=== PATIENT | female | born 1940 | race Caucasian/White ===

== ENCOUNTER 2016-12-21 15:57 | Observation (INO) | payer MEDICARE, BC ==
--- OUTSIDE RECORDS SUMMARY | 2016-12-21 16:02 | XMS REPORT | Continuity of Care Document ---
:1940 Author Organization [facility] ([facility]) [place] [address] Phone [phone] Care Team Providers Name Role Phone Roby Christianson Primary Care Provider [phone] Source Comments This disclosure is being made pursuant to the Care Everywhere program, applicable federal and state laws, and may not contain all informaitonavailable regarding this patient.[facility] ([facility]) Active Allergies and Adverse Reactions Allergen Noted Date Severity Reactions Comments Cephalosporins Urticaria (Hives) Latex, Natural Rubber Urticaria (Hives) Other Agent 11/09/2009 Urticaria (Hives) Metals Penicillins Urticaria (Hives) Sulfadoxine Urticaria (Hives) Current Medications Prescription Sig. Disp. Refills Start Date End Date Status albuterol-ipratropium use 3 mL by Active (DUONEB) 2.5-0.5 mg/3 inhalation 4 times mL inhalation solution daily. amLODIPine (NORVASC) 10 take 10 mg by mouth Active mg tablet daily. Benzocaine-Menthol 6-10 by Mucous Membrane Active mg Lozg route. BLOOD-GLUCOSE METER Active LANCETS & BLOOD GLUCOSE Active STRIPS clobetasol (TEMOVATE) apply topically 2 Active 0.05 % cream times daily. clotrimazole-betamethas apply 1 application Active one (LOTRISONE) 1-0.05% topically 2 times cream daily. diltiazem (CARDIZEM CD) take 180 mg by mouth Active 180 mg ER capsule daily. Lidocaine HCl 5 % Soln by Mucous Membrane Active route. lisinopril (PRINIVIL) take by mouth daily. Active 10 mg tablet MAG HYDROX/AL take by mouth. Active HYDROX/SIMETH (MAALOX PLUS EXTRA STRENGTH PO) OXYBENZONE/PDO/PET by Apply externally Active HY-PHL (VASELINE LIP route. THERAPY EX) metFORMIN (GLUCOPHAGE) take 500 mg by mouth Active 500 mg tablet 2 times daily with meals. mometasone (NASONEX) 50 use 2 Sprays into Active mcg/Actuation nasal each nostril daily. spray oxyCODONE-acetaminophen take 1 Tab by mouth Active (PERCOCET) 5-325 mg per every 4 hours as tablet needed. pantoprazole (PROTONIX) take 40 mg by mouth Active 40 mg EC tablet daily. cycloSPORINE take 100 mg by mouth Active (SANDIMMUNE) 100 mg cap every 12 hours. polyethylene glycol take 17 g by mouth Active 3350 (MIRALAX) 17 gram daily. packet potassium chloride take 20 mEq by mouth Active (KLOR-CON 10) 10 mEq XR 2 times daily. tablet sennosides (SENOKOT) take 1 Tab by mouth Active 8.6 mg tablet daily. sodium chloride (OCEAN use 1 [place] into each Active NASAL) 0.65 % nasal nostril as needed. spray theophylline (FAVIO-DUR) take 200 mg by mouth Active 200 mg XR tablet 2 times daily. venlafaxine (EFFEXOR) take 75 mg by mouth 4 Active 75 mg tablet times daily. Active Problems Problem Noted Date Shortness of breath 12/06/2007 Acute esophagitis 12/06/2007 Immunizations Name Dates Previously Given Next Due Influenza, unspecified 06/10/2007 Social History Tobacco Use Types Packs/Day Years Used Date Never Assessed Last Filed Vital Signs Vital Sign Reading Time Taken Blood Pressure 118/65 11/09/2009 9:28 AM CDT Pulse 101 11/09/2009 9:28 AM CDT Temperature 36.5 C (97.7 F) 11/09/2009 9:28 AM CDT Respiratory Rate 16 12/06/2007 10:15 AM CDT Height 1.67 m (5' 5.75") 11/09/2009 9:28 AM CDT Weight 89.313 kg (196 lb 14.4 oz) 11/09/2009 9:28 AM CDT Body Mass Index 32.02 11/09/2009 9:28 AM CDT Oxygen Saturation - - Plan of Care Health Maintenance Due Date Last Done Comments Hepatitis B Vaccine (1 of 3 - Primary Series) 1940 Tdap Vaccine 1949 Lipid Disorder Screening 1956 Td Vaccine 1956 Mammogram 1978 Colonoscopy 10/30/1988 Zoster Vaccine 1998 Osteoporosis Screening (DXA Bone Density) 11/01/2003 Pneumococcal Vaccine (1 of 2 - PCV13) 11/01/2003 Influenza Vaccine: Seasonal (Season Ended) 2017 06/10/2007 Results from Last 3 Months Not on file
[2016-12-21] MEDS ORDERED: ENOXAPARIN SODIUM 40 MG/0.4 ML SYRG SC SCH (17:15)
[2016-12-21] MEDS: CLINDAMYCIN HCL 150 MG CAPSULE PO SCH ×2 (18:07→22:53)
[2016-12-21 20:40] LABS: Anion Gap 8.1 mmol/L (6.8-13.8); BUN/Creatinine Ratio 16.3 (9.0-21.6); Calcium * 9.2 mg/dL (7.9-10.9); Carbon Dioxide 33.6 mmol/L (24-32.6); Estimated Creat Clear 50.5; Potassium 4.7 mmol/L (3.4-4.6)
[2016-12-21] MEDS ORDERED: ALBUTEROL SULFATE/IPRATROPIUM 3 ML NEBU IH PRN (22:50)
[2016-12-21] MEDS ORDERED: NITROGLYCERIN 0.4 MG/TAB BTL SL PRN (22:50)
[2016-12-21] MEDS ORDERED: ACETAMINOPHEN 325 MG TABLET PO PRN (22:50)
[2016-12-21] MEDS ORDERED: HALOPERIDOL 5 MG TABLET PO PRN (22:50)
[2016-12-21] MEDS ORDERED: HYDROPHILIC OINTMENT 454 APPL JAR TP PRN (22:50)
[2016-12-21] MEDS ORDERED: BISACODYL 5 MG TABLET.DR PO PRN (22:50)
[2016-12-21] MEDS ORDERED: amLODIPine BESYLATE 10 MG TABLET PO ONE (23:26)
[2016-12-21] MEDS ORDERED: amLODIPine BESYLATE 5 MG TABLET ONE (23:36)
--- NOTE | 2016-12-21 23:42 | HP ---
Chief Complaint - Chief Complaint Date of Service: 12/21/16 Time of Service: 20:00 Chief Complaint: Pressure ulcer History of Present Illness: 76 years old female adm to the hospital from the clinic with reports of infected pressure ulcers to the buttocks and weight loss. Per PCP pt lives at home and is been cared for by daughter, who reported that she isn't able to care for pt like she needs too. Family considering placement for pt upon this adm.Pt is unable to provide information due to medical condition, information obtained from previous records. In out-pt clinic wound culture and blood culture were already obtained. she was initiated on clindamycin 150mg PO Q6hrs. PMH significant for aspirated pneumonia, COPD, diabetes, anemia,dementia,GERD, UTI, hypertension and hyperlipidemia. - Patient's Past Medical History Patient History - Medical: Anemia, Alzheimer's Disease, Anxiety, Diabetes Type 2 , Dementia, Depression, GERD, UTI'S, Other Patient History - Cardiac/Respiratory: Bronchitis, COPD, Hypertension, Hyperlipidemia, Sleep Apnea, Other - chronic cough, right eye herpes Patient History - Cancer: No Hx of Cancer Patient History - Surgical Procedures: Back Surgery, Cholecystectomy, Colonoscopy, EGD, Hysterectomy Patient History - Other: None - Family History Mother Family History - Medical: Family History - Cardiac/Respiratory: CVA/Stroke, Hypertension Father Family History - Medical: , History Unknown, Bipolar Family History - Cardiac/Respiratory: No pertinent hx - Social History Living Situations: home Abuse History: No History of abuse Psych History: Psychiatric Hx, Hx of Anxiety, Hx of Depression Smoking Status: Former smoker Have you smoked in the past 12 months: No Alcohol Use: none Drug Use: none - Immunizations Immunizations Up to Date: No Hx Pneumococcal Vaccination: No History of Influenza Vaccine: No Review Of Systems (GEN) - Review of Systems Generalized/Overall Review: Present: No Symptoms Reported EENTM: Present: No Symptoms Reported Respiratory: Present: Cough Cardiac: Present: No Symptoms Reported Abdominal: Present: No Symptoms Reported Genitourinary: Present: No Symptoms Reported Musculoskeletal: Present: No Symptoms Reported Neurological: Present: No Symptoms Reported Skin: Present: Other - pressure ulcer Immunizations: IMMUNIZATION HX Immunizations Up to Date No History of Influenza Vaccine No Hx Pneumococcal Vaccination No Allergies/Adverse Reactions: Allergies Allergy/AdvReac Type Severity Reaction Status Date / Time Penicillins Allergy Severe Anaphylaxis Verified 08/11/16 16:04 latex Allergy Itching Verified 08/11/16 16:04 Sulfa (Sulfonamide Allergy Itching Verified 08/11/16 16:04 Antibiotics) adhesive AdvReac Verified 08/11/16 16:04 Home Medications: HOME MEDICATIONS Bisacodyl [Dulcolax] 5 mg PO DAILY PRN 08/30/14 [Last Taken 08/11/15 08:00] Calcium Carbonate [Tums] 500 mg PO TID 08/30/14 [Last Taken 08/12/15 17:00] Cholecalciferol (Vitamin D3) [Vitamin D3] 2,000 unit PO DAILY 08/30/14 [Last Taken 08/12/15 08:00] Propylene Glycol [Systane Balance] 1 drop EACHEYE QID PRN 08/30/14 [Last Taken Unknown] Tolterodine Tartrate [Detrol LA] 2 mg PO DAILY 08/30/14 [Last Taken 08/12/15 08: 00] ALPRAZolam [Xanax] 0.5 mg PO BID 08/13/15 [Last Taken 08/12/15 20:00] Hydrophilic Ointment [Aquaphilic Ointment] 1 appl TP DAILY PRN 08/13/15 [Last Taken Unknown] Acetaminophen [Tylenol] 650 mg PO Q6H PRN 07/05/16 [Last Taken Unknown] Arformoterol Tartrate [Brovana] 15 mcg IH BID 07/05/16 [Last Taken Unknown] Clobetasol Propionate [Temovate 0.05% Cream] 1 appl TP BID 07/05/16 [Last Taken Unknown] Cyanocobalamin [Vitamin B-12] 1,000 mcg PO DAILY 07/05/16 [Last Taken Unknown] Donepezil HCl [Aricept] 10 mg PO HS 07/05/16 [Last Taken Unknown] Haloperidol [Haldol] 5 mg PO TID PRN 07/05/16 [Last Taken Unknown] Memantine HCl [Namenda] 10 mg PO DAILY 07/05/16 [Last Taken Unknown] Nitroglycerin [Nitrostat] 0.4 mg SL Q5MIN PRN 07/05/16 [Last Taken Unknown] Polyethylene Glycol 3350 [Miralax] 17 gm PO DAILY 07/05/16 [Last Taken Unknown] Polyvinyl Alcohol [Artificial Tears] 1 drop OP HS 07/05/16 [Last Taken Unknown] QUEtiapine FUMARATE [Seroquel] 50 mg PO DAILY 07/05/16 [Last Taken Unknown] QUEtiapine FUMARATE [Seroquel] 100 mg PO HS 07/05/16 [Last Taken Unknown] Vit C/Vit E AC/Lut/Copper/Zinc [Preservision Lutein Softgel] 1 each PO DAILY 05/12 [Last Taken Unknown] Fluticasone/Salmeterol [Advair 250-50 Diskus] 1 puff IH BID 07/07/16 [Last Taken Unknown] Omeprazole [Prilosec] 40 mg PO DAILY 08/11/16 [Last Taken Unknown] Simvastatin [Zocor] 20 mg PO HS 08/11/16 [Last Taken Unknown] Theophylline Anhydrous [Theophylline] 300 mg PO BID 08/11/16 [Last Taken Unknown ] Multivitamin W/Iron, Minerals 1 tab PO DAILY 08/12/16 [Last Taken Unknown] Albuterol Sulfate/Ipratropium [Duoneb 2.5-0.5MG/3ML Soln] 3 ml IH Q4H PRN [Last Taken Unknown] Calcium Carbonate/Vitamin D3 [Oysco 500-Vit D3 200 Tablet] 1 each PO TID [Last Taken Unknown] Diphenhydramine HCl/Zinc Acet [Anti-Itch 2%-0.1% Cream] 1 gm TP Q4H PRN [Last Taken Unknown] predniSONE [Prednisone] 2.5 mg PO DAILY 12/21/16 [Last Taken Unknown] Exam - Exam Vital Signs: Vital Signs - Last Taken Temp 37.2 C 12/21/16 23:23 Pulse 81 12/21/16 23:23 Resp 24 H 12/21/16 23:23 BP 187/67 12/21/16 23:23 Pulse Ox 90 12/21/16 23:23 Constitutional: Present: Cooperative, No distress, Middle aged ENT Exam: Present: moist mucous membranes Eye Exam: bilateral eye: PERRL Neck: Present: non-tender Back Exam: Present: normal inspection, no CVA tenderness Breasts: Present: Exam deferred Respiratory: Present: chest non-tender, normal breath sounds, no respiratory distress, respiratory distress Cardiovascular/Chest: Present: normal peripheral pulses, regular rate, rhythm, no chest tenderness, no edema Peripheral Pulses: dorsalis-pedis (R): 3+, dorsalis-pedis (L): 3+ Abdomen: Present: Normal bowel sounds, soft, nontender, nondistended, no rebound tenderness /Rectal: Present: Exam deferred Extremity: Present: normal range of motion Skin Exam: Present: normal color, warm/dry, no cyanosis Lymphatic: Present: no adenopathy Neurologic: Present: disoriented x 3 Appearance: Present: appropriate appearance Eye contact: Present: cooperative Thoughts: Present: no apparent hallucination Diagnostic Studies: Abnormal Lab Results 12/21/16 Range/Units 20:24 Sodium 143 H (132-142) mmol/L Plasma Sodium 143 H (130-142) mmol/L Potassium 4.7 H D (3.4-4.6) mmol/L Carbon Dioxide 33.6 H (24-32.6) mmol/L Laboratory Results Sodium 143 mmol/L (132-142) H 12/21/16 20:24 Plasma Sodium 143 mmol/L (130-142) H 12/21/16 20:24 Potassium 4.7 mmol/L (3.4-4.6) H D 12/21/16 20:24 Chloride 106 mmol/L (97-106) 12/21/16 20:24 Carbon Dioxide 33.6 mmol/L (24-32.6) H 12/21/16 20:24 Anion Gap 8.1 mmol/L (6.8-13.8) 12/21/16 20:24 BUN 14 mg/dL (3-23) 12/21/16 20:24 Creatinine 0.86 mg/dL (0.4-1.4) 12/21/16 20:24 Est GFR (Non-Af Amer) 68 mL/min (60-130) D 12/21/16 20:24 BUN/Creatinine Ratio 16.3 (9.0-21.6) 12/21/16 20:24 Random Glucose 107 mg/dL (70-110) 12/21/16 20:24 Calcium 9.2 mg/dL (7.9-10.9) 12/21/16 20:24 Assessment/Plan - Narrative Narrative: Infected Pressure ulcer Turn Q2hrs Meplex dressing to affected area Keep area clean and dry Blood culture and wound culture was obtained at clinic Continue with oral antbx Diabetes Consistent carb diet Accu-check AC+HS and low dose sliding scale Resume home dose of medication COPD Continue with neb treatment both schedule and PRN Supplemented oxygen and wean soon as prudent Resume home dose of medications Dementia continue with supportive care Frequent re-orientation Hypertension on adm BP 187/67 Norvasc 10mg x1 given Continue to monitor vital signs Pt isn't on any home medications continue with Norvasc 5mg daily. Generalized weakness- likely due to deconditioning PT/OT evaluation and treatment Code status: Full VTE ppx Ambulate Anticipate discharge [facility] family requesting placement 0-2 days and follow up with PCP Time 40 minutes and previous records reviewed. - Assessment/Plan (1) COPD (chronic obstructive pulmonary disease) Problem: Chronic (2) Dementia Problem: Chronic Qualifiers: (3) Diabetes mellitus type 2 in nonobese Problem: Chronic (4) Pressure ulcer Problem: Acute Qualifiers: Pressure ulcer location: buttock
[2016-12-21] MEDS: FLUTICASONE/SALMETEROL 14 PUFF DISK.W.DEV IH SCH (23:43)
[2016-12-21] MEDS ORDERED: POLYVINYL ALCOHOL 150 DROP BTL EACHEYE PRN (23:49)
[2016-12-21] MEDS: THEOPHYLLINE ANHYDROUS 300 MG TAB.SR.12H PO SCH (23:52)
[2016-12-21] MEDS ORDERED: diphenhydrAMINE HCL/ZINC ACET 28.3 APPL TUBE TP PRN (23:55)
[2016-12-22] MEDS ORDERED: DONEPEZIL HCL 10 MG TABLET PO SCH
[2016-12-22] MEDS ORDERED: POLYVINYL ALCOHOL 150 DROP BTL OP SCH
[2016-12-22] MEDS ORDERED: CLOBETASOL PROPIONATE APPL TP SCH
[2016-12-22] MEDS ORDERED: QUEtiapine FUMARATE 100 MG TABLET PO SCH
[2016-12-22] MEDS ORDERED: SIMVASTATIN 20 MG TABLET PO SCH
[2016-12-22] MEDS: CLINDAMYCIN HCL 150 MG CAPSULE PO SCH ×2 (05:02→11:47)
[2016-12-22] MEDS ORDERED: PANTOPRAZOLE SODIUM 40 MG TABLET.EC PO SCH (07:00)
[2016-12-22] MEDS: NYSTATIN 30 ML, diphenhydrAMINE HCL 75 MG, LIDOCAINE HCL 30 ML, MAG HYDROX/ALUMINUM HYD... PO SCH ×8 (08:00→11:47)
[2016-12-22] MEDS: FLUTICASONE/SALMETEROL 14 PUFF DISK.W.DEV IH SCH (08:00)
[2016-12-22] MEDS ORDERED: CHOLECALCIFEROL 1,000 UNIT CAPSULE PO SCH (09:00)
[2016-12-22] MEDS ORDERED: CYANOCOBALAMIN 1,000 MCG TABLET PO SCH (09:00)
[2016-12-22] MEDS ORDERED: MULTIVITAMINS 1 TAB TAB.CHEW PO SCH (09:00)
[2016-12-22] MEDS ORDERED: BETA-CAROTENE(A) W-C , E/MIN 1 TAB TABLET PO SCH (09:00)
[2016-12-22] MEDS ORDERED: MEMANTINE HCL 10 MG TABLET PO SCH (09:00)
[2016-12-22] MEDS ORDERED: predniSONE 5 MG TABLET PO SCH (09:00)
[2016-12-22] MEDS ORDERED: FORMOTEROL FUMARATE 20 MCG/2 ML VIAL IH SCH (09:00)
[2016-12-22] MEDS ORDERED: TOLTERODINE TARTRATE 2 MG CAPSULE PO SCH (09:00)
[2016-12-22] MEDS ORDERED: POLYETHYLENE GLYCOL 3350 119 GM BTL PO SCH (09:00)
[2016-12-22] MEDS ORDERED: CLOBETASOL PROPIONATE/EMOLL 60 APPL TUBE TP SCH (09:00)
[2016-12-22] MEDS ORDERED: predniSONE 2.5 MG TABLET PO SCH (09:00)
[2016-12-22] MEDS: CALCIUM CARBONATE/VITAMIN D3 1 TAB TABLET PO SCH ×2 (09:45→13:56)
[2016-12-22] MEDS: CALCIUM CARBONATE 500 MG TAB.CHEW PO SCH ×2 (09:46→13:57)
[2016-12-22] MEDS: THEOPHYLLINE ANHYDROUS 300 MG TAB.SR.12H PO SCH (09:46)
[2016-12-22 11:08] VITALS: BP 147/67
--- NOTE | 2016-12-22 11:45 | DS ---
(1) Pressure ulcer Problem: Acute Qualifiers: Pressure ulcer location: buttock Pressure ulcer stage: unspecified pressure ulcer stage Laterality: right Qualified Code(s): L89.319 - Pressure ulcer of right buttock, unspecified stage Description of Stay: Patient admitted overnight for an infected pressure ulcer and to make arrangements for [facility]. Patient will be discharged home with her daughter with [facility] in place. Patient will be seen in the wound care clinic next week. Continue clindamycin for 7 days. Will await final wound culture and sensitivity results and adjust antibiotic if necessary. Procedures Performed: none Discharge Disposition: Home with [facility] Disposition: Home self-care Condition: Fair Discharge Activity: Activity as tolerated Discharge Diet: Resume usual diet [facility] Therapy: Physicial Therapy Referrals: Jocelin Shaffer DO [Primary Care Provider] - Problem Oriented Discharge Instructions to Patient/Family: Confusion, Wound Infection, [id number] Additional Patient Instructions (free text): [facility] at discharge. Please call report and fax orders and fax face to face. Wound Center appointment at [facility] December 29 at 9am. Follow-up with Dr. Shaffer within 2 weeks on December at 10:45 AM. Mepilex border to right buttock ulcer. Change dressing every three days. Wash with soap and water,pat dry when changing dressing. Prescriptions (Any new or edited meds): RX: Clindamycin HCl [Cleocin] 150 mg PO Q6H #28 capsule Complete Home Medications List: Complete Home Medication List: RX: Bisacodyl [Dulcolax] 5 mg PO DAILY PRN 08/30/14 RX: Calcium Carbonate [Tums] 500 mg PO TID 08/30/14 RX: Cholecalciferol (Vitamin D3) [Vitamin D3] 2,000 unit PO DAILY 08/30/14 RX: Propylene Glycol [Systane Balance] 1 drop EACHEYE QID PRN 08/30/14 RX: Tolterodine Tartrate [Detrol LA] 2 mg PO DAILY 08/30/14 RX: ALPRAZolam [Xanax] 0.5 mg PO BID 08/13/15 RX: Hydrophilic Ointment [Aquaphilic Ointment] 1 appl TP DAILY PRN 08/13/15 RX: Acetaminophen [Tylenol] 650 mg PO Q6H PRN 07/05/16 RX: Arformoterol Tartrate [Brovana] 15 mcg IH BID 07/05/16 RX: Clobetasol Propionate [Temovate 0.05% Cream] 1 appl TP BID 07/05/16 RX: Cyanocobalamin [Vitamin B-12] 1,000 mcg PO DAILY 07/05/16 RX: Donepezil HCl [Aricept] 10 mg PO HS 07/05/16 RX: Haloperidol [Haldol] 5 mg PO TID PRN 07/05/16 RX: Memantine HCl [Namenda] 10 mg PO DAILY 07/05/16 RX: Nitroglycerin [Nitrostat] 0.4 mg SL Q5MIN PRN 07/05/16 RX: Polyethylene Glycol 3350 [Miralax] 17 gm PO DAILY 07/05/16 RX: Polyvinyl Alcohol [Artificial Tears] 1 drop OP HS 07/05/16 RX: QUEtiapine FUMARATE [Seroquel] 50 mg PO DAILY 07/05/16 RX: QUEtiapine FUMARATE [Seroquel] 100 mg PO HS 07/05/16 RX: Vit C/Vit E AC/Lut/Copper/Zinc [Preservision Lutein Softgel] 1 each PO DAILY 07/05/16 RX: Fluticasone/Salmeterol [Advair 250-50 Diskus] 1 puff IH BID 07/07/16 RX: Omeprazole [Prilosec] 40 mg PO DAILY 08/11/16 RX: Simvastatin [Zocor] 20 mg PO HS 08/11/16 RX: Theophylline Anhydrous [Theophylline] 300 mg PO BID 08/11/16 Multivitamin W/Iron, Minerals 1 tab PO DAILY 08/12/16 RX: Albuterol Sulfate/Ipratropium [Duoneb 2.5-0.5MG/3ML Soln] 3 ml IH Q4H PRN RX: Calcium Carbonate/Vitamin D3 [Oysco 500-Vit D3 200 Tablet] 1 each PO TID RX: Diphenhydramine HCl/Zinc Acet [Anti-Itch 2%-0.1% Cream] 1 gm TP Q4H PRN RX: predniSONE [Prednisone] 2.5 mg PO DAILY 12/21/16 RX: Clindamycin HCl [Cleocin] 150 mg PO Q6H #28 capsule 12/22/16
[2016-12-22] MEDS ORDERED: QUEtiapine FUMARATE 25 MG TABLET PO SCH (12:00)
== END 2016-12-22 17:50 | disposition home health service (06) ==
LOC: MS 15:57
PROVIDERS: ADMIT Internal Medicine; ATTEND Internal Medicine
DX: L89.319 Pressure ulcer of right buttock, unspecified stage (principal); L03.317 Cellulitis of buttock; E11.622 Type 2 diabetes mellitus with other skin ulcer; G30.9 Alzheimer's disease, unspecified; F02.80 Dementia in other diseases classified elsewhere, unspecified severity, without behavioral disturbance, psychotic disturbance, mood disturbance, and anxiety; D64.9 Anemia, unspecified; K21.9 Gastro-esophageal reflux disease without esophagitis; I10 Essential (primary) hypertension; J44.9 Chronic obstructive pulmonary disease, unspecified; Z87.891 Personal history of nicotine dependence; R63.4 Abnormal weight loss; M62.81 Muscle weakness (generalized)
CPT/HCPCS: 36415; 80048; 87040; 87081; 92610; 96372; 97161; 97165; G0378; G0379; G8978; G8979; G8980; G8987; G8988; G8989; G8996; G8997; G8998

== ENCOUNTER 2017-01-01 11:23 | Emergency (ER) | payer MEDICARE, BC ==
[2017-01-01] MEDS ORDERED: NORMAL SALINE 1,000 ML IV SCH (12:00)
[2017-01-01] MEDS ORDERED: LEVOFLOXACIN/D5W 750 MG/150 ML BAG IV SCH (12:00)
--- OUTSIDE RECORDS SUMMARY | 2017-01-01 12:00 | XMS REPORT | Continuity of Care Document ---
:1940 Author Organization [facility] ([facility]) Address [place] [address] Phone [phone] Care Team Providers Name Role Phone Roby Christianson Primary Care Provider [phone] Source Comments This disclosure is being made pursuant to the Care Everywhere program, applicable federal and state laws, and may not contain all informaitonavailable regarding this patient.[facility] ([facility]) Active Allergies and Adverse Reactions Allergen [...] tablet daily. sodium chloride (OCEAN use 1 [place] into each Active NASAL) 0.65 % nasal [...]
[2017-01-01 12:22] LABS: Hemoglobin 9.4 gm/dL (12.5-16.0); Mean Cell Volume 89.4 fl (78-100); Mean Corpuscular Hemoglobin 25.5 pg (27-31); Mean Corpuscular Hgb Conc 28.5 g/dl (32-36); Mean Platelet Volume 10.2 fl (6.0-9.5); Neutrophil % 64.5 % (42-75.0); Platelet Count 323 K/mm3 (150-450); Red Blood Count 3.69 M/mm3 (4.2-5.4); Red Cell Distribution Width 16.6 % (11.5-14.0); White Blood Count 7.8 K/mm3 (4.0-10.5)
[2017-01-01 12:50] LABS: Albumin * 3.2 gm/dl (3.4-5.0); Anion Gap 8.5 mmol/L (6.8-13.8); BUN/Creatinine Ratio 22.5 (9.0-21.6); Bilirubin, Total 0.1 mg/dL (0.0-1.1); Ca. Corrected For Albumin 9.7 mg/dL (8.4-10.2); Calcium * 9.4 mg/dL (7.9-10.9); Carbon Dioxide 34.6 mmol/L (24-32.6); Potassium 4.1 mmol/L (3.4-4.6); Total Protein 7.6 gm/dL (6.2-8.2)
[2017-01-01 13:13] LABS: Urine Bilirubin Negative (NEGATIVE); Urine Blood Negative /ul (NEGATIVE); Urine Ketone Negative (NEGATIVE); Urine Nitrite Negative (NEGATIVE); Urine Protein Negative (NEGATIVE); Urine Specific Gravity >=1.030 SP.GR. (1.005-1.010); Urine Urobilinogen Normal (NORMAL); Urine pH 6.5 pH (5.0-7.0)
[2017-01-01 13:25] LABS: Urine Appearance Slightly Cloudy; Urine Bacteria 1+; Urine Color Yellow; Urine WBC 0-5 /hpf (0-5)
--- NOTE | 2017-01-01 13:38 | ERNOTE ---
Date of Service: 01/01/17 Time Seen by Provider: 01/01/17 11:48 Stated Complaint: PNEUMONIA Presenting Symptoms:: cough, fever Source: family Exam Limitations: no limitations Immunizations: IMMUNIZATION HX Immunizations Up to Date No History of Influenza Vaccine No Hx Pneumococcal Vaccination No Allergies/Adverse Reactions: Allergies Penicillins Allergy (Severe, Verified 01/01/17 11:50) Anaphylaxis latex Allergy (Verified 01/01/17 11:50) Itching Sulfa (Sulfonamide Antibiotics) Allergy (Verified 01/01/17 11:50) Itching adhesive Adverse Reaction (Verified 01/01/17 11:50) Home Medications: HOME MEDICATIONS Bisacodyl [Dulcolax] 5 mg PO DAILY PRN 08/30/14 [Last Taken 08/11/15 08:00] Calcium Carbonate [Tums] 500 mg PO TID 08/30/14 [Last Taken 08/12/15 17:00] Cholecalciferol (Vitamin D3) [Vitamin D3] 1,000 unit PO DAILY 08/30/14 [Last Taken 08/12/15 08:00] Propylene Glycol [Systane Balance] 1 drop EACHEYE QID PRN 08/30/14 [Last Taken Unknown] Tolterodine Tartrate [Detrol LA] 2 mg PO DAILY 08/30/14 [Last Taken 08/12/15 08: 00] ALPRAZolam [Xanax] 0.5 mg PO BID 08/13/15 [Last Taken 08/12/15 20:00] Hydrophilic Ointment [Aquaphilic Ointment] 1 appl TP DAILY PRN 08/13/15 [Last Taken Unknown] Acetaminophen [Tylenol] 650 mg PO Q6H PRN 07/05/16 [Last Taken Unknown] Arformoterol Tartrate [Brovana] 15 mcg IH BID 07/05/16 [Last Taken Unknown] Clobetasol Propionate [Temovate 0.05% Cream] 1 appl TP BID 07/05/16 [Last Taken Unknown] Cyanocobalamin [Vitamin B-12] 1,000 mcg PO DAILY 07/05/16 [Last Taken Unknown] Donepezil HCl [Aricept] 10 mg PO HS 07/05/16 [Last Taken Unknown] Haloperidol [Haldol] 5 mg PO TID PRN 07/05/16 [Last Taken Unknown] Memantine HCl [Namenda] 10 mg PO DAILY 07/05/16 [Last Taken Unknown] Nitroglycerin [Nitrostat] 0.4 mg SL Q5MIN PRN 07/05/16 [Last Taken Unknown] Polyethylene Glycol 3350 [Miralax] 17 gm PO DAILY 07/05/16 [Last Taken Unknown] Polyvinyl Alcohol [Artificial Tears] 1 drop OP HS 07/05/16 [Last Taken Unknown] QUEtiapine FUMARATE [Seroquel] 50 mg PO DAILY 07/05/16 [Last Taken Unknown] QUEtiapine FUMARATE [Seroquel] 100 mg PO HS 07/05/16 [Last Taken Unknown] Vit C/Vit E AC/Lut/Copper/Zinc [Preservision Lutein Softgel] 1 each PO DAILY 05/12 [Last Taken Unknown] Fluticasone/Salmeterol [Advair 250-50 Diskus] 1 puff IH BID 07/07/16 [Last Taken Unknown] Omeprazole [Prilosec] 40 mg PO DAILY 08/11/16 [Last Taken Unknown] Simvastatin [Zocor] 20 mg PO HS 08/11/16 [Last Taken Unknown] Theophylline Anhydrous [Theophylline] 300 mg PO BID 08/11/16 [Last Taken Unknown ] Multivitamin W/Iron, Minerals 1 tab PO DAILY 08/12/16 [Last Taken Unknown] Albuterol Sulfate/Ipratropium [Duoneb 2.5-0.5MG/3ML Soln] 3 ml IH Q4H PRN [Last Taken Unknown] Calcium Carbonate/Vitamin D3 [[place] 500-Vit D3 200 Tablet] 1 each PO TID [Last Taken Unknown] Diphenhydramine HCl/Zinc Acet [Anti-Itch 2%-0.1% Cream] 1 gm TP Q4H PRN [Last Taken Unknown] predniSONE [Prednisone] 2.5 mg PO DAILY 12/21/16 [Last Taken Unknown] Clindamycin HCl [Cleocin] 150 mg PO Q6H #28 capsule 12/22/16 [Last Taken Unknown ] Albuterol Sulfate/Ipratropium [Duoneb 2.5-0.5MG/3ML Soln] 3 ml IH Q4H PRN [Last Taken Unknown] Levofloxacin [Levaquin] 750 mg PO DAILY #10 tab 01/01/17 [Last Taken Unknown] - History of Present Ilness Narrative: 76 year old female brought to ER from Clinic. Patient is SOB, and has a very congested cough. Due to patient's dementia, verbal exam was limited. Daughter states that she has has cold sx for about 2 weeks. Date (Duration): 01/01/17 Timing: constant Severity: moderate Frequency/Possible Cause: Reports: frequent episodes Modifying Factors - Improves: Reports: nothing Modifying Factors - Worsens: Reports: activity, lying down Associated Symptoms: Reports: cough, shortness of breath, nasal congestion, headache, fever/chills. Denies: chest pain/soreness, nasal drainage, sore throat Prior Treatment: Reports: recently hospitalized - with in the last 30 days per daughter Review of Systems - Review of Systems Constitutional: Present: See HPI EYE: Present: no symptoms reported ENT: Present: See HPI Respiratory: Present: See HPI Cardiology: Present: no symptoms reported Gastrointestinal/Abdominal: Present: no symptoms reported Genitourinary: Present: no symptoms reported Musculoskeletal: Present: no symptoms reported Skin: Present: no symptoms reported Neurological: Present: See HPI, headache Endocrine: Present: no symptoms reported Hematologic/Lymphatic: Present: no symptoms reported Psych: Present: no symptoms reported All Other Systems: All systems neg except as marked - Patient's Past Medical History Patient History - Medical: Anemia, Alzheimer's Disease, Diabetes Type 2, Dementia, GERD, UTI'S, Other Patient History - Cardiac/Respiratory: COPD Patient History - Cancer: No Hx of Cancer Patient History - Surgical Procedures: Back Surgery, Cholecystectomy, Colonoscopy, EGD, Hysterectomy Patient History - Other: None - Family History Mother Family History - Medical: Family History - Cardiac/Respiratory: CVA/Stroke, Hypertension Father Family History - Medical: , History Unknown, Bipolar Family History - Cardiac/Respiratory: No pertinent hx - Social History Living Situations: home Abuse History: No History of abuse Psych History: Psychiatric Hx Alcohol Use: none Drug Use: none - Immunizations Immunizations Up to Date: No Hx Pneumococcal Vaccination: No History of Influenza Vaccine: No Physical Exam - Physical Exam General Appearance: Present: wd/wn, alert, moderate distress Eye Exam: Normal inspection: bilateral Ears, Nose, Throat: Present: normal except -, nasal congestion, pharyngeal erythema Neck: Present: normal inspection Respiratory: Present: respiratory distress, accessory muscle use, decreased breath sounds, rales, rhonchi Cardiovascular/Chest: Present: normal peripheral pulses, irregularly irregular Peripheral Pulses: N=norm/S=strong/W=weak/B=bound/A=absent: Radial (R): Normal, Radial (L): Normal, Dorsalis-pedis (R): Normal, Dorsalis-pedis (L): Normal Gastrointestinal/Abdominal: Present: normal bowel sounds, nontender, soft Back Exam: Present: decreased range of motion Extremity Exam: Present: decreased range of motion Neurological Exam: Present: alert, normal mood/affect, other - forgetful, plesant confused at time Skin Exam: Present: normal color, warm/dry Lymphatic Exam: Present: no adenopathy ED Progress - Results and Orders Patient's Lab Results:: I have reviewed the patient's lab results. - Vital Signs Patient's Vital Signs:: I have reviewed the patient's vital signs. Vital Signs: Vital Signs 01/01/17 11:36 Temperature 36.1 C L Pulse Rate 98 Respiratory 12 Rate Blood Pressure 163/70 O2 Sat by Pulse 96 Oximetry - EKG EKG: atrial fibrillation EKG read: Reviewed by me EKG Comments: interp by ER attending - X-Ray X-Ray #1 X-Ray: chest Interpretation: Reviewed by me X-ray Comments: HISTORY: Shortness of breath. TECHNIQUE: Single portable AP view of the chest was obtained at 1325 hours. COMPARISONS: 08/11/2016 FINDINGS: Chest Single View *: Patient is rotated to the patient's right. Hypoinflated lungs. There is a questionable infiltrate versus atelectasis at the right lung base. Pulmonary vasculature is normal. No pneumothorax or pleural fluid collections apparent. Mild cardiomegaly, stable. Vascular calcifications projecting over the aorta, stable. Trachea is in normal position given patient positioning. Mildly displaced rib fractures are identified at the lateral aspects of the right fifth, sixth, and seventh ribs. There is associated mild adjacent pleural thickening. IMPRESSION: 1. Right basilar atelectasis versus pulmonary infiltrate. Correlate clinically. Consider follow-up to document resolution. 2. Right-sided rib fractures (lateral 5-7) are suggested. Associated localized pleural thickening. Electronically signed by Pil Christianson, M.D.. - Progress/Reassessment Chief Complaint: Upper Respiratory Symptoms Plan - Plan Plan: This provider spoke with the admitting Hospitalist Mary Kate Westbrook about admitting this patient. She stated she spoke with Dr. Shaffer and the felt that admission was not needed and to send patient home with antibiotics. Mary Kate stated that Dr. Mora nurse will call the daughter and speak with her regarding a follow up office visit. Mary Kate Westbrook is aware of CXR findings. Departure - Departure Clinical Impression: SOB (shortness of breath) Pneumonia Qualifiers: Pneumonia type: due to unspecified organism Laterality: unspecified laterality Lung location: unspecified part of lung Qualified Code(s): J18.9 - Pneumonia, unspecified organism Disposition: Home Follow Up Needed Condition: Stable Instructions: Chronic Obstructive Pulmonary Disease, [id number], Aspiration Pneumonia Additional Instructions: Continue any previous home medications. Start her oral antibiotics tomorrow. She was given the first dose in the emergency room today. Return to the emergency room if you develop fever or shortness of breath or any new signs and symptoms. Please follow-up with your primary care in the next 2 days regarding her diagnoses. Referrals: Jocelin Shaffer DO [Primary Care Provider] - Prescriptions: Levofloxacin [Levaquin] 750 mg PO DAILY #10 tab
[2017-01-01 14:20] VITALS: BP 170/74
== END 2017-01-01 14:38 | disposition home or self-care (01) ==
LOC: ER 11:23
DX: R06.02 Shortness of breath (principal); J18.9 Pneumonia, unspecified organism; D64.9 Anemia, unspecified; E11.9 Type 2 diabetes mellitus without complications; K21.9 Gastro-esophageal reflux disease without esophagitis; J44.9 Chronic obstructive pulmonary disease, unspecified

== ENCOUNTER 2017-01-08 15:30 | Inpatient (IN) | payer MEDICARE, BC ==
--- OUTSIDE RECORDS SUMMARY | 2017-01-08 16:07 | XMS REPORT | Continuity of Care Document ---
:1940 Author Organization [facility] ([facility]) Address [place] [address] Phone [phone] Care Team Providers Name Role Phone Roby Christianson Primary Care Provider [phone] Source Comments This disclosure is being made pursuant to the Care Everywhere program, applicable federal and state laws, and may not contain all informaitonavailable regarding this patient.[facility] ([facility]) Active Allergies and Adverse Reactions Allergen [...] tablet daily. sodium chloride (OCEAN use 1 [place] into each Active NASAL) 0.65 % nasal [...]
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
[2017-01-08] MEDS ORDERED: ALBUTEROL SULFATE/IPRATROPIUM 3 ML NEBU IH ONE ×2 (16:28→17:22)
[2017-01-08 16:30] LABS: Hematocrit 28.1 % (37.0-47.0); Mean Cell Volume 88.9 fl (78-100); Mean Corpuscular Hgb Conc 28.1 g/dl (32-36); Mean Platelet Volume 10.6 fl (6.0-9.5); Neutrophil # 5.6 K/mm3 (1.3-6.0); Platelet Count 247 K/mm3 (150-450); Red Blood Count 3.16 M/mm3 (4.2-5.4); Red Cell Distribution Width 15.8 % (11.5-14.0); White Blood Count 8.1 K/mm3 (4.0-10.5)
[2017-01-08 16:33] LABS: Hemoglobin 7.9 gm/dL (12.5-16.0)
[2017-01-08 16:48] LABS: Prothrombin Time (Patient) 10.6 Seconds (9.4-11.4)
[2017-01-08 16:51] LABS: Albumin * 2.8 gm/dl (3.4-5.0); Anion Gap 6.4 mmol/L (6.8-13.8); BUN/Creatinine Ratio 18.4 (9.0-21.6); Bilirubin, Total 0.2 mg/dL (0.0-1.1); Ca. Corrected For Albumin 9.5 mg/dL (8.4-10.2); Calcium * 8.9 mg/dL (7.9-10.9); Carbon Dioxide 37.5 mmol/L (24-32.6); Potassium 3.9 mmol/L (3.4-4.6); TSH * 2.731 uIU/mL (0.358-3.74); Total Protein 6.8 gm/dL (6.2-8.2)
[2017-01-08 16:53] LABS: INR 1.02 INR (0.90-1.10)
[2017-01-08 17:54] LABS: Urine Bilirubin Negative (NEGATIVE); Urine Blood Negative /ul (NEGATIVE); Urine Ketone Negative (NEGATIVE); Urine Nitrite Negative (NEGATIVE); Urine Protein Negative (NEGATIVE); Urine Specific Gravity >=1.030 SP.GR. (1.005-1.010); Urine Urobilinogen Normal (NORMAL)
[2017-01-08 18:03] LABS: Urine Appearance Clear; Urine Bacteria None Seen; Urine Color Yellow; Urine RBC TRACE /hpf (0-5); Urine WBC None Seen /hpf (0-5)
--- OUTSIDE RECORDS SUMMARY | 2017-01-08 19:15 | XMS REPORT | Continuity of Care Document ---
:1940 Author Organization [facility] ([facility]) Address [place] [address] Phone [phone] Care Team Providers Name Role Phone Roby Christianson Primary Care Provider [phone] Source Comments This disclosure is being made pursuant to the Care Everywhere program, applicable federal and state laws, and may not contain all informaitonavailable regarding this patient.[facility] ([facility]) Active Allergies and Adverse Reactions Allergen Noted [...] tablet daily. sodium chloride (OCEAN use 1 [place] into each Active NASAL) 0.65 % nasal [...]
[2017-01-08] MEDS ORDERED: HYDROPHILIC OINTMENT 454 APPL JAR TP PRN (20:22)
[2017-01-08] MEDS ORDERED: ALBUTEROL SULFATE/IPRATROPIUM 3 ML NEBU IH PRN (20:22)
[2017-01-08] MEDS ORDERED: BISACODYL 5 MG TABLET.DR PO PRN (20:22)
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
[2017-01-08] MEDS ORDERED: BISACODYL 10 MG SUPP.RECT RC ONE ×2 (20:30→21:35)
[2017-01-08] MEDS ORDERED: diphenhydrAMINE HCL/ZINC ACET 28.3 APPL TUBE TP PRN (20:53)
[2017-01-08] MEDS ORDERED: CLOBETASOL PROPIONATE APPL TP SCH (21:00)
[2017-01-08] MEDS ORDERED: HALOPERIDOL 5 MG TABLET PO PRN (21:01)
[2017-01-08] MEDS: DONEPEZIL HCL 10 MG TABLET PO SCH (21:38)
[2017-01-08] MEDS: ALPRAZolam 0.5 MG TABLET PO SCH (21:38)
[2017-01-08] MEDS: QUEtiapine FUMARATE 100 MG TABLET PO SCH (21:38)
[2017-01-08] MEDS: SIMVASTATIN 20 MG TABLET PO SCH (21:38)
[2017-01-08] MEDS: THEOPHYLLINE ANHYDROUS 300 MG TAB.SR.12H PO SCH (21:38)
[2017-01-08] MEDS: MAGNESIUM CITRATE 300 ML BTL PO SCH (21:38)
[2017-01-08] MEDS: POLYVINYL ALCOHOL 150 DROP BTL OP SCH (21:39)
[2017-01-08] MEDS: FLUTICASONE/SALMETEROL 14 PUFF DISK.W.DEV IH SCH (21:39)
[2017-01-08] MEDS: DEXTROSE 5%-0.5 NORMAL SALINE 1,000 ML IV PRN (21:47)
[2017-01-08] MEDS ORDERED: POLYVINYL ALCOHOL 150 DROP BTL EACHEYE PRN (22:13)
[2017-01-08] MEDS ORDERED: LEVOFLOXACIN 250 MG TABLET ONE (22:14)
[2017-01-08] MEDS: LEVOFLOXACIN 750 MG TABLET PO SCH (22:15)
[2017-01-08] MEDS: FORMOTEROL FUMARATE 20 MCG/2 ML VIAL IH SCH (22:17)
[2017-01-09] MEDS: ACETAMINOPHEN 325 MG TABLET PO PRN ×2 (04:12→16:29)
[2017-01-09] MEDS: FORMOTEROL FUMARATE 20 MCG/2 ML VIAL IH SCH ×2 (06:03→18:25)
[2017-01-09 06:06] LABS: Hematocrit 28.6 % (37.0-47.0); Hemoglobin 8.3 gm/dL (12.5-16.0); Mean Cell Volume 87.7 fl (78-100); Mean Corpuscular Hemoglobin 25.5 pg (27-31); Mean Platelet Volume 10.6 fl (6.0-9.5); Neutrophil # 7.6 K/mm3 (1.3-6.0); Neutrophil % 67.9 % (42-75.0); Platelet Count 267 K/mm3 (150-450); Red Blood Count 3.26 M/mm3 (4.2-5.4); Red Cell Distribution Width 15.7 % (11.5-14.0); White Blood Count 11.2 K/mm3 (4.0-10.5)
[2017-01-09] MEDS: PANTOPRAZOLE SODIUM 40 MG TABLET.EC PO SCH (06:37)
[2017-01-09 06:46] LABS: Iron 20 mcg/dL (35-120); Transferrin Sat. (% Sat.) 10 % (15-55)
[2017-01-09] MEDS ORDERED: ATROPINE SULFATE 150 DROP BTL SL PRN (07:14)
[2017-01-09 07:42] LABS: Albumin * 2.9 gm/dl (3.4-5.0); Anion Gap 3.3 mmol/L (6.8-13.8); Bilirubin, Total 0.3 mg/dL (0.0-1.1); Ca. Corrected For Albumin 9.4 mg/dL (8.4-10.2); Calcium * 8.8 mg/dL (7.9-10.9); Carbon Dioxide 37.6 mmol/L (24-32.6); Potassium 3.9 mmol/L (3.4-4.6); T4 Free * 1.05 ng/dL (0.76-1.46); TSH * 2.05 uIU/mL (0.358-3.74); Total Protein 6.8 gm/dL (6.2-8.2)
[2017-01-09] MEDS: MULTIVIT WITH IRON-MINERALS 1 TAB TABLET PO SCH (08:53)
[2017-01-09] MEDS: MAGNESIUM CITRATE 300 ML BTL PO SCH (08:53)
[2017-01-09] MEDS: TOLTERODINE TARTRATE 2 MG CAPSULE PO SCH (08:53)
[2017-01-09] MEDS: FLUTICASONE/SALMETEROL 14 PUFF DISK.W.DEV IH SCH ×2 (08:53→22:27)
[2017-01-09] MEDS: BETA-CAROTENE(A) W-C , E/MIN 1 TAB TABLET PO SCH (08:54)
[2017-01-09] MEDS: MEMANTINE HCL 10 MG TABLET PO SCH (08:54)
[2017-01-09] MEDS: predniSONE 2.5 MG TABLET PO SCH (08:54)
[2017-01-09] MEDS: QUEtiapine FUMARATE 25 MG TABLET PO SCH (08:54)
[2017-01-09] MEDS: POLYETHYLENE GLYCOL 3350 119 GM BTL PO SCH (08:54)
[2017-01-09] MEDS: BISACODYL 5 MG TABLET.DR PO SCH (08:54)
[2017-01-09] MEDS: FERROUS SULFATE 325 MG TABLET PO SCH ×2 (08:54→16:30)
[2017-01-09] MEDS: CALCIUM CARBONATE 500 MG TAB.CHEW PO SCH ×3 (08:55→16:30)
[2017-01-09] MEDS: THEOPHYLLINE ANHYDROUS 300 MG TAB.SR.12H PO SCH ×2 (08:55→22:28)
[2017-01-09] MEDS: CHOLECALCIFEROL 1,000 UNIT CAPSULE PO SCH (08:55)
[2017-01-09] MEDS: CYANOCOBALAMIN 1,000 MCG TABLET PO SCH (08:55)
[2017-01-09] MEDS: CLOBETASOL PROPIONATE 15 APPL TUBE TP SCH ×2 (08:56→22:28)
[2017-01-09] MEDS ORDERED: predniSONE 5 MG TABLET PO SCH (09:00)
[2017-01-09] MEDS: ALPRAZolam 0.5 MG TABLET PO SCH ×2 (09:03→22:28)
[2017-01-09] MEDS ORDERED: POLYVINYL ALCOHOL 150 DROP BTL EACHEYE PRN (10:23)
[2017-01-09] MEDS: DEXTROSE 5%-0.5 NORMAL SALINE 1,000 ML IV PRN (14:10)
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
[2017-01-09] MEDS: POLYVINYL ALCOHOL 150 DROP BTL OP SCH (22:27)
[2017-01-09] MEDS: SIMVASTATIN 20 MG TABLET PO SCH (22:28)
[2017-01-09] MEDS: DONEPEZIL HCL 10 MG TABLET PO SCH (22:29)
[2017-01-09] MEDS: QUEtiapine FUMARATE 100 MG TABLET PO SCH (22:29)
[2017-01-09] MEDS: LEVOFLOXACIN 750 MG TABLET PO SCH (22:29)
[2017-01-10] MEDS: DEXTROSE 5%-0.5 NORMAL SALINE 1,000 ML IV PRN (03:09)
[2017-01-10] MEDS: ACETAMINOPHEN 325 MG TABLET PO PRN (04:51)
[2017-01-10] MEDS: FORMOTEROL FUMARATE 20 MCG/2 ML VIAL IH SCH ×2 (06:06→19:32)
[2017-01-10] MEDS: PANTOPRAZOLE SODIUM 40 MG TABLET.EC PO SCH (07:03)
[2017-01-10] MEDS: FLUTICASONE/SALMETEROL 14 PUFF DISK.W.DEV IH SCH ×2 (08:39→20:19)
[2017-01-10] MEDS: CYANOCOBALAMIN 1,000 MCG TABLET PO SCH (08:40)
[2017-01-10] MEDS: CHOLECALCIFEROL 1,000 UNIT CAPSULE PO SCH (08:40)
[2017-01-10] MEDS: MULTIVIT WITH IRON-MINERALS 1 TAB TABLET PO SCH (08:40)
[2017-01-10] MEDS: THEOPHYLLINE ANHYDROUS 300 MG TAB.SR.12H PO SCH ×2 (08:40→20:19)
[2017-01-10] MEDS: CALCIUM CARBONATE 500 MG TAB.CHEW PO SCH ×3 (08:40→16:52)
[2017-01-10] MEDS: ALPRAZolam 0.5 MG TABLET PO SCH ×2 (08:42→20:19)
[2017-01-10] MEDS: BISACODYL 5 MG TABLET.DR PO SCH (08:44)
[2017-01-10] MEDS: FERROUS SULFATE 325 MG TABLET PO SCH ×2 (08:44→16:52)
[2017-01-10] MEDS: TOLTERODINE TARTRATE 2 MG CAPSULE PO SCH (08:44)
[2017-01-10] MEDS: MEMANTINE HCL 10 MG TABLET PO SCH (08:44)
[2017-01-10] MEDS: POLYETHYLENE GLYCOL 3350 119 GM BTL PO SCH (08:44)
[2017-01-10] MEDS: predniSONE 2.5 MG TABLET PO SCH (08:45)
[2017-01-10] MEDS: BETA-CAROTENE(A) W-C , E/MIN 1 TAB TABLET PO SCH (08:45)
[2017-01-10] MEDS: QUEtiapine FUMARATE 25 MG TABLET PO SCH (08:45)
[2017-01-10] MEDS: CLOBETASOL PROPIONATE 15 APPL TUBE TP SCH ×2 (08:45→20:20)
[2017-01-10] MEDS ORDERED: diphenhydrAMINE HCL/ZINC ACET 28.3 APPL TUBE TP PRN (11:47)
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
[2017-01-10] MEDS: NYSTATIN 30 ML, diphenhydrAMINE HCL 75 MG, LIDOCAINE HCL 30 ML, MAG HYDROX/ALUMINUM HYD... PO PRN ×4 (13:27)
[2017-01-10] MEDS: POLYVINYL ALCOHOL 150 DROP BTL OP SCH (20:20)
[2017-01-10] MEDS: SIMVASTATIN 20 MG TABLET PO SCH (20:20)
[2017-01-10] MEDS: QUEtiapine FUMARATE 100 MG TABLET PO SCH (20:20)
[2017-01-10] MEDS: DONEPEZIL HCL 10 MG TABLET PO SCH (20:20)
[2017-01-10] MEDS ORDERED: NON-FORMULARY 1 DOSE DOSE (Arformoterol Tartrate [Brovana] 15 MCG) IH SCH (21:00)
[2017-01-11] MEDS: ACETAMINOPHEN 325 MG TABLET PO PRN ×2 (03:55→14:35)
[2017-01-11] MEDS: FORMOTEROL FUMARATE 20 MCG/2 ML VIAL IH SCH ×2 (06:06→18:07)
[2017-01-11 06:35] LABS: Hematocrit 26.8 % (37.0-47.0); Mean Cell Volume 86.5 fl (78-100); Mean Corpuscular Hemoglobin 25.5 pg (27-31); Mean Corpuscular Hgb Conc 29.5 g/dl (32-36); Mean Platelet Volume 10.9 fl (6.0-9.5); Platelet Count 274 K/mm3 (150-450); Red Cell Distribution Width 16.1 % (11.5-14.0); White Blood Count 8.7 K/mm3 (4.0-10.5)
[2017-01-11 06:39] LABS: Hemoglobin 7.9 gm/dL (12.5-16.0)
[2017-01-11 06:42] LABS: Anion Gap 7.2 mmol/L (6.8-13.8); BUN/Creatinine Ratio 12.6 (9.0-21.6); Calcium * 8.7 mg/dL (7.9-10.9); Carbon Dioxide 35.3 mmol/L (24-32.6); Estimated Creat Clear 42.1; Potassium 3.5 mmol/L (3.4-4.6)
[2017-01-11] MEDS: PANTOPRAZOLE SODIUM 40 MG TABLET.EC PO SCH (06:43)
[2017-01-11] MEDS: CALCIUM CARBONATE 500 MG TAB.CHEW PO SCH ×3 (09:13→17:43)
[2017-01-11] MEDS: CYANOCOBALAMIN 1,000 MCG TABLET PO SCH (09:13)
[2017-01-11] MEDS: predniSONE 2.5 MG TABLET PO SCH (09:13)
[2017-01-11] MEDS: FERROUS SULFATE 325 MG TABLET PO SCH ×2 (09:13→17:43)
[2017-01-11] MEDS: MEMANTINE HCL 10 MG TABLET PO SCH (09:13)
[2017-01-11] MEDS: CHOLECALCIFEROL 1,000 UNIT CAPSULE PO SCH (09:13)
[2017-01-11] MEDS: FLUTICASONE/SALMETEROL 14 PUFF DISK.W.DEV IH SCH ×2 (09:13→20:05)
[2017-01-11] MEDS: TOLTERODINE TARTRATE 2 MG CAPSULE PO SCH (09:13)
[2017-01-11] MEDS: CLOBETASOL PROPIONATE 15 APPL TUBE TP SCH ×2 (09:14→20:05)
[2017-01-11] MEDS: THEOPHYLLINE ANHYDROUS 300 MG TAB.SR.12H PO SCH ×2 (09:14→20:05)
[2017-01-11] MEDS: QUEtiapine FUMARATE 25 MG TABLET PO SCH (09:14)
[2017-01-11] MEDS: BISACODYL 5 MG TABLET.DR PO SCH (09:14)
[2017-01-11] MEDS: BETA-CAROTENE(A) W-C , E/MIN 1 TAB TABLET PO SCH (09:14)
[2017-01-11] MEDS: MULTIVIT WITH IRON-MINERALS 1 TAB TABLET PO SCH (09:14)
[2017-01-11] MEDS: NYSTATIN 30 ML, diphenhydrAMINE HCL 75 MG, LIDOCAINE HCL 30 ML, MAG HYDROX/ALUMINUM HYD... PO PRN ×4 (09:21)
[2017-01-11] MEDS: POLYETHYLENE GLYCOL 3350 119 GM BTL PO SCH (09:29)
[2017-01-11] MEDS: ALPRAZolam 0.5 MG TABLET PO SCH ×2 (09:30→20:05)
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
[2017-01-11] MEDS: SIMVASTATIN 20 MG TABLET PO SCH (20:05)
[2017-01-11] MEDS: QUEtiapine FUMARATE 100 MG TABLET PO SCH (20:05)
[2017-01-11] MEDS: DONEPEZIL HCL 10 MG TABLET PO SCH (20:05)
[2017-01-11] MEDS: POLYVINYL ALCOHOL 150 DROP BTL OP SCH (20:06)
[2017-01-12] MEDS: ACETAMINOPHEN 325 MG TABLET PO PRN (04:21)
[2017-01-12] MEDS: PANTOPRAZOLE SODIUM 40 MG TABLET.EC PO SCH (06:31)
[2017-01-12] MEDS: FORMOTEROL FUMARATE 20 MCG/2 ML VIAL IH SCH (06:57)
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
[2017-01-12] MEDS: FLUTICASONE/SALMETEROL 14 PUFF DISK.W.DEV IH SCH (09:28)
[2017-01-12] MEDS: BETA-CAROTENE(A) W-C , E/MIN 1 TAB TABLET PO SCH (09:29)
[2017-01-12] MEDS: MULTIVIT WITH IRON-MINERALS 1 TAB TABLET PO SCH (09:29)
[2017-01-12] MEDS: BISACODYL 5 MG TABLET.DR PO SCH (09:29)
[2017-01-12] MEDS: CHOLECALCIFEROL 1,000 UNIT CAPSULE PO SCH (09:29)
[2017-01-12] MEDS: TOLTERODINE TARTRATE 2 MG CAPSULE PO SCH (09:29)
[2017-01-12] MEDS: MEMANTINE HCL 10 MG TABLET PO SCH (09:29)
[2017-01-12] MEDS: THEOPHYLLINE ANHYDROUS 300 MG TAB.SR.12H PO SCH (09:29)
[2017-01-12] MEDS: CYANOCOBALAMIN 1,000 MCG TABLET PO SCH (09:29)
[2017-01-12] MEDS: predniSONE 2.5 MG TABLET PO SCH (09:29)
[2017-01-12] MEDS: QUEtiapine FUMARATE 25 MG TABLET PO SCH (09:29)
[2017-01-12] MEDS: CALCIUM CARBONATE 500 MG TAB.CHEW PO SCH (09:30)
[2017-01-12] MEDS: FERROUS SULFATE 325 MG TABLET PO SCH (09:30)
[2017-01-12] MEDS: CLOBETASOL PROPIONATE 15 APPL TUBE TP SCH (09:31)
[2017-01-12] MEDS: POLYETHYLENE GLYCOL 3350 119 GM BTL PO SCH (09:34)
[2017-01-12] MEDS: ALPRAZolam 0.5 MG TABLET PO SCH (09:39)
[2017-01-12 10:41] VITALS: BP 152/64
== END 2017-01-12 13:30 | DRG 206 ==
LOC: ER 15:30 → MS 19:09 → OBSVTOIN 01-09 09:28
PROVIDERS: ADMIT Allergy & Immunology; ATTEND Internal Medicine
DX: S22.31XA Fracture of one rib, right side, initial encounter for closed fracture (principal); T76.11XA Adult physical abuse, suspected, initial encounter; S05.11XA Contusion of eyeball and orbital tissues, right eye, initial encounter; S00.03XA Contusion of scalp, initial encounter; W19.XXXA Unspecified fall, initial encounter; Z91.81 History of falling; Y92.009 Unspecified place in unspecified non-institutional (private) residence as the place of occurrence of the external cause; K59.00 Constipation, unspecified; L89.312 Pressure ulcer of right buttock, stage 2; D64.9 Anemia, unspecified; E78.5 Hyperlipidemia, unspecified; J43.9 Emphysema, unspecified; G30.9 Alzheimer's disease, unspecified; F02.80 Dementia in other diseases classified elsewhere, unspecified severity, without behavioral disturbance, psychotic disturbance, mood disturbance, and anxiety; Z87.891 Personal history of nicotine dependence
CPT/HCPCS: 36415; 70450; 70486; 71020; 72125; 72170; 73552; 80048; 80053; 81001; 82272; 82607; 82728; 83540; 83550; 83605; 84439; 84443; 84466; 85025; 85027; 85610; 87081; 94640; 97110; 97116; 97162; 99284; G0378

== ENCOUNTER 2017-02-11 20:32 | Emergency (ER) | payer MEDICARE, BC ==
[2017-02-11] MEDS ORDERED: ACETAMINOPHEN 325 MG TABLET ONE (20:57)
[2017-02-11] MEDS ORDERED: ACETAMINOPHEN 325 MG TABLET PO ONE (21:00)
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
[2017-02-11 23:04] VITALS: BP 132/74
== END 2017-02-11 23:03 ==
LOC: ER 20:32
PROC: 0HQ1XZZ Repair Face Skin, External Approach (ICD-10-PCS; principal; 2017-02-11)
DX: S01.112A Laceration without foreign body of left eyelid and periocular area, initial encounter (principal); F03.90 Unspecified dementia, unspecified severity, without behavioral disturbance, psychotic disturbance, mood disturbance, and anxiety; W07.XXXA Fall from chair, initial encounter; Z91.81 History of falling; Y93.9 Activity, unspecified; Y92.129 Unspecified place in nursing home as the place of occurrence of the external cause; D64.9 Anemia, unspecified; K21.9 Gastro-esophageal reflux disease without esophagitis; J44.9 Chronic obstructive pulmonary disease, unspecified; E78.5 Hyperlipidemia, unspecified; Z87.440 Personal history of urinary (tract) infections

== ENCOUNTER 2017-04-26 06:06 | Inpatient (IN) | payer MEDICARE, BC ==
[2017-04-26 06:43] LABS: Hematocrit 36.1 % (37.0-47.0); Mean Cell Volume 85.7 fl (78-100); Mean Corpuscular Hemoglobin 26.1 pg (27-31); Mean Corpuscular Hgb Conc 30.5 g/dl (32-36); Mean Platelet Volume 10.6 fl (6.0-9.5); Neutrophil # 12.6 K/mm3 (1.3-6.0); Neutrophil % 77.6 % (42-75.0); Platelet Count 209 K/mm3 (150-450); Red Blood Count 4.21 M/mm3 (4.2-5.4); Red Cell Distribution Width 17.7 % (11.5-14.0); White Blood Count 16.2 K/mm3 (4.0-10.5)
[2017-04-26 06:57] LABS: Albumin * 3.3 gm/dl (3.4-5.0); Anion Gap 10.6 mmol/L (6.8-13.8); BUN/Creatinine Ratio 15.9 (9.0-21.6); Bilirubin, Total 0.5 mg/dL (0.0-1.1); Ca. Corrected For Albumin 9.1 mg/dL (8.4-10.2); Calcium * 8.9 mg/dL (7.9-10.9); Carbon Dioxide 29.2 mmol/L (24-32.6); Potassium 3.8 mmol/L (3.4-4.6); Total Protein 7.5 gm/dL (6.2-8.2)
--- NOTE | 2017-04-26 07:22 | ERNOTE ---
Dyspnea - General Presenting Symptoms: shortness of breath Time Seen by Provider: 04/26/17 06:52 Source: EMS, intermediate records Exam Limitations: clinical condition, dementia - Immun/Allergies/Home Medications Immunizations: IMMUNIZATION HX Immunizations Up to Date Yes History of Influenza Vaccine Yes Hx Pneumococcal Vaccination Yes Allergies/Adverse Reactions: Allergies Penicillins Allergy (Severe, Verified 04/26/17 06:16) Anaphylaxis latex Allergy (Verified 04/26/17 06:16) Itching Sulfa (Sulfonamide Antibiotics) Allergy (Verified 04/26/17 06:16) Itching adhesive Adverse Reaction (Verified 04/26/17 06:16) Home Medications: HOME MEDICATIONS Bisacodyl [Dulcolax] 5 mg PO DAILY PRN 08/30/14 [Last Taken 08/11/15 08:00] Calcium Carbonate [Tums] 500 mg PO TID 08/30/14 [Last Taken 08/12/15 17:00] Cholecalciferol (Vitamin D3) [Vitamin D3] 1,000 unit PO DAILY 08/30/14 [Last Taken 08/12/15 08:00] ALPRAZolam [Xanax] 0.5 mg PO BID 08/13/15 [Last Taken 08/12/15 20:00] Acetaminophen [Tylenol] 650 mg PO Q6H PRN 07/05/16 [Last Taken Unknown] Cyanocobalamin [Vitamin B-12] 1,000 mcg PO DAILY 07/05/16 [Last Taken Unknown] Nitroglycerin [Nitrostat] 0.4 mg SL Q5MIN PRN 07/05/16 [Last Taken Unknown] Polyethylene Glycol 3350 [Miralax] 17 gm PO DAILY 07/05/16 [Last Taken Unknown] Polyvinyl Alcohol [Artificial Tears] 1 drop OP HS 07/05/16 [Last Taken Unknown] Vit C/Vit E AC/Lut/Copper/Zinc [Preservision Lutein Softgel] 1 each PO DAILY 05/12 [Last Taken Unknown] Fluticasone/Salmeterol [Advair 250-50 Diskus] 1 puff IH BID 07/07/16 [Last Taken Unknown] Omeprazole [Prilosec] 40 mg PO DAILY 08/11/16 [Last Taken Unknown] Simvastatin [Zocor] 20 mg PO HS 08/11/16 [Last Taken Unknown] Theophylline Anhydrous [Theophylline] 300 mg PO BID 08/11/16 [Last Taken Unknown ] predniSONE [Prednisone] 2.5 mg PO DAILY 12/21/16 [Last Taken Unknown] Albuterol Sulfate/Ipratropium [Duoneb 2.5-0.5MG/3ML Soln] 3 ml IH Q4H PRN [Last Taken Unknown] Arformoterol Tartrate [Brovana] 15 mcg IH BID 01/08/17 [Last Taken Unknown] Ferrous Sulfate 325 mg PO BIDWM tablet 01/12/17 [Last Taken Unknown] Benztropine Mesylate [Cogentin] 0.5 mg PO BID 04/26/17 [Last Taken Unknown] Carbamide Peroxide [Debrox] 1 drop OT PRN PRN 04/26/17 [Last Taken Unknown] Multivitamin [One Daily Multivitamin] 1 each PO DAILY 04/26/17 [Last Taken Unknown] Tolterodine Tartrate [Detrol LA] 2 mg PO DAILY 04/26/17 [Last Taken Unknown] - History of Present Illness Narrative: Pt brought my EMS due to [place] report of dyspnea and elevated temperature. Severity: mild, moderate Treatment LEAVE SPECIALIST: paramedics, albuterol - minimal benefit Initiating event: Reports: none Modifying Factors - (Improves): Reports: oxygen Review of Systems - Narrative Narrative: Pt is poor historian and minimal info given from [place]. - Review of Systems Constitutional: Present: fever, fatigue EYE: Present: no symptoms reported ENT: Present: no symptoms reported Respiratory: Present: shortness of breath, wheezing Cardiology: Present: no symptoms reported Gastrointestinal/Abdominal: Present: no symptoms reported Genitourinary: Present: no symptoms reported Musculoskeletal: Present: no symptoms reported Skin: Present: no symptoms reported Neurological: Present: other - decreased mental status and ability to follow directions Endocrine: Present: no symptoms reported Hematologic/Lymphatic: Present: no symptoms reported Psych: Present: no symptoms reported - Patient's Past Medical History Patient History - Medical: Anemia, Alzheimer's Disease, Dementia, GERD, UTI'S, Other Patient History - Cardiac/Respiratory: COPD, Hyperlipidemia Patient History - Cancer: No Hx of Cancer Patient History - Surgical Procedures: Back Surgery, Cholecystectomy, Colonoscopy, EGD, Hysterectomy, T & A, Orthopedic Patient History - Other: None - Family History Mother Family History - Medical: Family History - Cardiac/Respiratory: CVA/Stroke, Hypertension Family History - Cancer: No pertinent family hx Father Family History - Medical: , History Unknown, Bipolar Family History - Cardiac/Respiratory: No pertinent hx Family History - Cancer: History Unknown - Social History Living Situations: intermediate Abuse History: No History of abuse Psych History: Psychiatric Hx Alcohol Use: none Drug Use: none - Immunizations Immunizations Up to Date: Yes Hx Pneumococcal Vaccination: Yes History of Influenza Vaccine: Yes Physical Exam - Physical Exam General Appearance: Present: wd/wn, mild distress, lethargic Head Exam: Present: normal inspection, no evidence of injury Eye Exam: Normal inspection: bilateral Ears, Nose, Throat: Present: normal ENT inspection Neck: Present: normal inspection, nontender Respiratory: Present: no accessory muscle use, rales, rhonchi, wheezing Cardiovascular/Chest: Present: regular rate, rhythm Gastrointestinal/Abdominal: Present: normal bowel sounds, nontender, nondistended Extremity Exam: Present: non-tender, extremity edema - 1+ Neurological Exam: Present: other - awakes to verbal stimuli, garbled speech, yes/ no answers Skin Exam: Present: normal color, warm/dry Lymphatic Exam: Present: no adenopathy ED Progress - Results and Orders Patient's Lab Results:: I have reviewed the patient's lab results. Results and Orders: Laboratory Tests 04/26/17 04/26/17 04/26/17 06:35 06:35 06:35 WBC 16.2 H D Hgb 11.0 L Hct 36.1 L Plt Count 209 Sodium 138 Potassium 3.8 Chloride 102 Carbon Dioxide 29.2 BUN 13 Creatinine 0.82 Random Glucose 108 D Lactic Acid, Venous 1.0 Calcium 8.9 Total Bilirubin 0.5 AST 20 ALT 16 L Alkaline Phosphatase 97 B-Natriuretic Peptide 515 Total Protein 7.5 Albumin 3.3 L - Vital Signs Patient's Vital Signs:: I have reviewed the patient's vital signs. Vital Signs: Vital Signs 04/26/17 04/26/17 04/26/17 06:09 06:16 06:30 Temperature 37.6 C H Pulse Rate 107 H 106 H 102 H Respiratory 18 27 H Rate Blood Pressure 155/87 129/75 O2 Sat by Pulse 96 93 Oximetry 04/26/17 06:50 Temperature Pulse Rate 94 Respiratory 27 H Rate Blood Pressure 145/58 O2 Sat by Pulse 94 Oximetry - EKG EKG read: Interp. by me EKG Comments: Sinus tach at 102. Old inferior NH - X-Ray X-Ray #1 X-Ray: chest Interpretation: Interp. by me X-ray Comments: Early RLL infiltrate, no effusion or pneumothorax - Progress/Reassessment Chief Complaint: Dyspnea Progress Note-Subjective: 04/26/17 07:[address] Davila about the patient. He agrees with admit. Departure Clinical Impression: Pneumonia Qualifiers: Pneumonia type: due to unspecified organism Laterality: right Lung location: lower lobe of lung Qualified Code(s): J18.1 - Lobar pneumonia, unspecified organism - Departure Disposition: [facility] Condition: Stable
[2017-04-26] MEDS ORDERED: LEVOFLOXACIN/D5W 750 MG/150 ML BAG IV ONE (07:34)
[2017-04-26] MEDS ORDERED: NITROGLYCERIN 0.4 MG/TAB BTL SL PRN (09:46)
[2017-04-26] MEDS ORDERED: ALBUTEROL SULFATE/IPRATROPIUM 3 ML NEBU IH PRN (09:46)
[2017-04-26] MEDS ORDERED: BISACODYL 5 MG TABLET.DR PO PRN (09:46)
[2017-04-26] MEDS ORDERED: CARBAMIDE PEROXIDE 150 DROP BTL OT PRN (09:46)
[2017-04-26] MEDS ORDERED: POLYVINYL ALCOHOL 150 DROP BTL OP PRN (09:50)
[2017-04-26] MEDS: CALCIUM CARBONATE 500 MG TAB.CHEW PO SCH ×2 (12:25→17:52)
[2017-04-26] MEDS: LORazepam 0.5 MG TABLET PO SCH ×2 (12:25→17:52)
[2017-04-26] MEDS: ENOXAPARIN SODIUM 40 MG/0.4 ML SYRG SC SCH (12:25)
[2017-04-26] MEDS: ACETAMINOPHEN 325 MG TABLET PO PRN (16:04)
[2017-04-26] MEDS ORDERED: diphenhydrAMINE HCL/ZINC ACET 28.3 APPL TUBE TP PRN (16:41)
[2017-04-26] MEDS ORDERED: HYDROPHILIC OINTMENT 454 APPL JAR TP PRN (16:41)
--- NOTE | 2017-04-26 17:46 | HP ---
Chief Complaint - Chief Complaint Date of Service: 04/26/17 Time of Service: 17:35 Chief Complaint: Cough History of Present Illness: This is 76 y/o resident of [facility] who has had a cough and a slight temperature elevation for two days. She was found to have bibasilar atelectasis or pneumonia on CXR in the ER. No urinalysis has been done. She has been started on antibiotics[place] [id number]. She is demented. She normally uses oxygen at all times, 3 liters per minute by n.c. - Patient's Past Medical History Patient History - Medical: Anemia, Alzheimer's Disease, Dementia, GERD, UTI'S, Other Patient History - Cardiac/Respiratory: COPD, CVA/Stroke, Hyperlipidemia, Pneumonia Patient History - Cancer: No Hx of Cancer Patient History - Surgical Procedures: Back Surgery, Cholecystectomy, Colonoscopy, EGD, Hysterectomy, T & A, Orthopedic Patient History - Other: None - Family History Mother Family History - Medical: Family History - Cardiac/Respiratory: CVA/Stroke, Hypertension Family History - Cancer: No pertinent family hx Father Family History - Medical: , History Unknown, Bipolar Family History - Cardiac/Respiratory: No pertinent hx Family History - Cancer: History Unknown - Social History Living Situations: snf Abuse History: No History of abuse Psych History: Psychiatric Hx Smoking Status: Former smoker Have you smoked in the past 12 months: No Do you dip or chew tobacco: No Patient requests Smoking Cessation Consult: No Initiate information on Smoking Cessation: No Alcohol Use: none Drug Use: none - Immunizations Immunizations Up to Date: Yes Hx Pneumococcal Vaccination: Yes History of Influenza Vaccine: Yes Review Of Systems (GEN) - Review of Systems Generalized/Overall Review: Present: No Symptoms Reported - unable to provide due to dementia. Immunizations: IMMUNIZATION HX Immunizations Up to Date Yes History of Influenza Vaccine Yes Hx Pneumococcal Vaccination Yes Allergies/Adverse Reactions: Allergies Allergy/AdvReac Type Severity Reaction Status Date / Time Penicillins Allergy Severe Anaphylaxis Verified 04/26/17 09:32 latex Allergy Itching Verified 04/26/17 09:32 Sulfa (Sulfonamide Allergy Itching Verified 04/26/17 09:32 Antibiotics) adhesive AdvReac Verified 04/26/17 09:32 Home Medications: HOME MEDICATIONS Bisacodyl [Dulcolax] 5 mg PO DAILY PRN 08/30/14 [Last Taken 08/11/15 08:00] Calcium Carbonate [Tums] 500 mg PO TID 08/30/14 [Last Taken 08/12/15 17:00] Acetaminophen [Tylenol] 650 mg PO Q6H PRN 07/05/16 [Last Taken Unknown] Cyanocobalamin [Vitamin B-12] 1,000 mcg PO DAILY 07/05/16 [Last Taken Unknown] Nitroglycerin [Nitrostat] 0.4 mg SL Q5MIN PRN 07/05/16 [Last Taken Unknown] Polyethylene Glycol 3350 [Miralax] 17 gm PO DAILY 07/05/16 [Last Taken Unknown] Omeprazole [Prilosec] 40 mg PO DAILY 08/11/16 [Last Taken Unknown] Simvastatin [Zocor] 20 mg PO HS 08/11/16 [Last Taken Unknown] Theophylline Anhydrous [Theophylline] 300 mg PO BID 08/11/16 [Last Taken Unknown ] predniSONE [Prednisone] 2.5 mg PO DAILY 12/21/16 [Last Taken Unknown] Albuterol Sulfate/Ipratropium [Duoneb 2.5-0.5MG/3ML Soln] 3 ml IH Q4H PRN [Last Taken Unknown] Ferrous Sulfate 325 mg PO BIDWM tablet 01/12/17 [Last Taken Unknown] Albuterol Sulfate [Proair Hfa] 1 - 2 puff IH Q4H PRN 04/26/17 [Last Taken Unknown] Arformoterol Tartrate [Brovana] 2 ml IH BID 04/26/17 [Last Taken Unknown] Benztropine Mesylate [Cogentin] 1 mg PO BID 04/26/17 [Last Taken Unknown] Carbamide Peroxide [Debrox] 1 drop OT PRN PRN 04/26/17 [Last Taken Unknown] Cholecalciferol (Vitamin D3) [Vitamin D3] 1,000 unit PO DAILY 04/26/17 [Last Taken Unknown] Diphenhydramine HCl/Zinc Acet [Anti-Itch 2%-0.1% Cream] 35 gm TP Q4H PRN [Last Taken Unknown] Donepezil HCl [Aricept] 10 mg PO HS 04/26/17 [Last Taken Unknown] Fluticasone/Salmeterol [Advair 250-50 Diskus] 1 puff IH BID 04/26/17 [Last Taken Unknown] Hydrophilic Ointment [Aquaphilic Ointment] 1 appl TP PRN PRN 04/26/17 [Last Taken Unknown] LORazepam [Ativan] 0.5 mg PO TID 04/26/17 [Last Taken Unknown] LORazepam [Ativan] 1 mg PO BID PRN 04/26/17 [Last Taken Unknown] Memantine HCl [Namenda] 10 mg PO DAILY 04/26/17 [Last Taken Unknown] Multivit,Tx with Iron,Minerals [Thera-M] 1 each PO DAILY 04/26/17 [Last Taken Unknown] Polyvinyl Alcohol [Artificial Tears] 1 drop OP QID PRN 04/26/17 [Last Taken Unknown] Tolterodine Tartrate [Detrol LA] 2 mg PO DAILY 04/26/17 [Last Taken Unknown] Triamcinolone Aceton/Silicones [Dermazone 0.1% Kit] 1 each TP BID 04/26/17 [ Last Taken Unknown] Vit C/Vit E AC/Lut/Copper/Zinc [Preservision Softgel] 1 each PO DAILY 04/26/17 [ Last Taken Unknown] Exam - Exam Vital Signs: Vital Signs - Last Taken Selected Entries 04/26/17 04/26/17 04/26/17 10:12 15:39 15:58 Temperature 36.8 C 38.2 C H 37.8 C H Temperature Temporal Artery Source Scan Pulse Rate 101 H 106 H 107 H Respiratory 25 H 28 H 26 H Rate Respiratory Short of Breath Effort Accessory Muscle Use Respiratory Tachypnea Pattern Blood Pressure 163/72 189/112 172/64 Blood Pressure Supine Position O2 Sat by Pulse 97 100 Oximetry Oxygen Delivery Nasal Cannula Nasal Cannula Method Oxygen Flow 3 3 Rate Laboratory Tests 04/26/17 04/26/17 04/26/17 06:35 06:35 16:41 WBC 16.2 H D Hgb 11.0 L Plt Count 209 Neutrophils % 77.6 H Lymphocytes % 12.5 L pCO2 54.2 H pO2 94.1 HCO3 29.0 H Total CO2 30.6 H ABG pH 7.35 Lactic Acid, Venous 1.0 Constitutional: Present: Alert, Well developed, Well nourished, No distress ENT Exam: Present: normal ENT inspection Eye Exam: bilateral eye: normal inspection, PERRL, EOMI Neck: Present: normal inspection, tender lateral Respiratory: Present: no respiratory distress, rhonchi Cardiovascular/Chest: Present: regular rate, rhythm, no murmur Abdomen: Present: Normal bowel sounds, soft, nontender, nondistended, no rebound tenderness, no hepatospenomegaly, no masses Extremity: Present: normal inspection, no pedal edema Skin Exam: Present: normal color, warm/dry, no cyanosis, other - stage 2 pressure sore buttock Neurologic: Present: alert Appearance: Present: appropriate appearance, neat Eye contact: Present: cooperative Thoughts: Present: incoherent Diagnostic Studies: Abnormal Lab Results 04/26/17 Range/Units 16:41 pCO2 54.2 H (32.0-45.0) mmHg HCO3 29.0 H (21.0-28.0) mmol/L Total CO2 30.6 H (19.0-24.0) mmol/L Laboratory Results WBC 16.2 K/mm3 (4.0-10.5) H D 04/26/17 06:35 RBC 4.21 M/mm3 (4.2-5.4) 04/26/17 06:35 Hgb 11.0 gm/dL (12.5-16.0) L 04/26/17 06:35 Hct 36.1 % (37.0-47.0) L 04/26/17 06:35 MCV 85.7 fl (78-100) 04/26/17 06:35 MCH 26.1 pg (27-31) L 04/26/17 06:35 MCHC 30.5 g/dl (32-36) L 04/26/17 06:35 RDW 17.7 % (11.5-14.0) H 04/26/17 06:35 Plt Count 209 K/mm3 (150-450) 04/26/17 06:35 MPV 10.6 fl (6.0-9.5) H 04/26/17 06:35 Immature Gran % (Auto) 0.50 % (0.001-0.429) H 04/26/17 06:35 Immature Gran # (Auto) 0.08 K/mm3 (0.000-0.0310) H 04/26/17 06:35 Neutrophils % 77.6 % (42-75.0) H 04/26/17 06:35 Lymphocytes % 12.5 % (20-51) L 04/26/17 06:35 Monocytes % 8.9 % (0.0-9) 04/26/17 06:35 Eosinophils % 0.2 % (0.0-3.0) 04/26/17 06:35 Basophils % 0.3 % (0.0-1.0) 04/26/17 06:35 Nucleated RBC % 0.0 k/mm3 (0-1) 04/26/17 06:35 Neutrophils # 12.6 K/mm3 (1.3-6.0) H 04/26/17 06:35 Lymphocytes # 2.0 k/mm3 (1.5-3.5) 04/26/17 06:35 Monocytes # 1.5 k/mm3 (0.0-1.0) H 04/26/17 06:35 Eosinophils # 0.0 k/mm3 (0.0-0.7) 04/26/17 06:35 Absolute Basophils 0.1 k/mm3 (0.0-0.1) 04/26/17 06:35 pCO2 54.2 mmHg (32.0-45.0) H 04/26/17 16:41 pO2 94.1 mmHg (83.0-108.0) 04/26/17 16:41 HCO3 29.0 mmol/L (21.0-28.0) H 04/26/17 16:41 Total CO2 30.6 mmol/L (19.0-24.0) H 04/26/17 16:41 Base Excess 2.4 mmol/L (-2.0-3.0) 04/26/17 16:41 ABG pH 7.35 (7.35-7.45) 04/26/17 16:41 ABG O2 Sat (Measured) 96.7 % (94.0-98.0) 04/26/17 16:41 Sodium 138 mmol/L (132-142) 04/26/17 06:35 Plasma Sodium 138 mmol/L (130-142) 04/26/17 06:35 Potassium 3.8 mmol/L (3.4-4.6) 04/26/17 06:35 Chloride 102 mmol/L (97-106) 04/26/17 06:35 Carbon Dioxide 29.2 mmol/L (24-32.6) 04/26/17 06:35 Anion Gap 10.6 mmol/L (6.8-13.8) 04/26/17 06:35 BUN 13 mg/dL (3-23) 04/26/17 06:35 Creatinine 0.82 mg/dL (0.4-1.4) 04/26/17 06:35 Est GFR (Non-Af Amer) 72 mL/min (60-130) 04/26/17 06:35 BUN/Creatinine Ratio 15.9 (9.0-21.6) 04/26/17 06:35 Random Glucose 108 mg/dL (70-110) D 04/26/17 06:35 Lactic Acid, Venous 1.0 mmol/L (0.4-1.9) 04/26/17 06:35 Calcium 8.9 mg/dL (7.9-10.9) 04/26/17 06:35 Calcium Adj for Albumin 9.1 mg/dL (8.4-10.2) 04/26/17 06:35 Total Bilirubin 0.5 mg/dL (0.0-1.1) 04/26/17 06:35 AST 20 U/L (0-48) 04/26/17 06:35 ALT 16 U/L (19-67) L 04/26/17 06:35 Alkaline Phosphatase 97 U/L (50-170) 04/26/17 06:35 B-Natriuretic Peptide 515 pg/mL (5-550) 04/26/17 06:35 Total Protein 7.5 gm/dL (6.2-8.2) 04/26/17 06:35 Albumin 3.3 gm/dl (3.4-5.0) L 04/26/17 06:35 Assessment/Plan - Narrative Narrative: Antibiotics. Follow labs. Mepilex. Estimate stay of four days. - Assessment/Plan (1) CVA (cerebral vascular accident) Problem: Chronic Qualifiers: CVA mechanism: unspecified Qualified Code(s): I63.9 - Cerebral infarction, unspecified (2) Dementia Problem: Chronic Qualifiers: Alzheimer's disease onset: unspecified onset Dementia behavioral disturbance: without behavioral disturbance (3) Pressure sore Problem: Acute Qualifiers: Pressure ulcer location: buttock Pressure ulcer stage: stage 2 Laterality : unspecified laterality Qualified Code(s): L89.302 - Pressure ulcer of unspecified buttock, stage 2 (4) Chronic respiratory failure with hypercapnia Problem: Chronic (5) Chronic respiratory failure with hypoxia Problem: Chronic (6) Aspiration into lower respiratory tract Problem: Chronic Qualifiers: Encounter type: subsequent encounter Qualified Code(s): T17.800D - Unspecified foreign body in other parts of respiratory tract causing asphyxiation, subsequent encounter (7) Pneumonia Problem: Acute Qualifiers: Pneumonia type: due to unspecified organism Laterality: right Lung location: lower lobe of lung Qualified Code(s): J18.1 - Lobar pneumonia, unspecified organism
[2017-04-26] MEDS: FERROUS SULFATE 325 MG TABLET PO SCH (17:52)
[2017-04-26 18:24] LABS: Urine Bilirubin Negative (NEGATIVE); Urine Blood 50 /ul (NEGATIVE); Urine Ketone Negative (NEGATIVE); Urine Nitrite Negative (NEGATIVE); Urine Protein 15 mg/dL (NEGATIVE); Urine Specific Gravity 1.025 SP.GR. (1.005-1.010); Urine Urobilinogen Normal (NORMAL)
[2017-04-26 18:38] LABS: Urine Appearance Clear; Urine Bacteria 3+; Urine Color Yellow; Urine WBC 0-5 /hpf (0-5)
[2017-04-26 18:40] LABS: Urine Hyaline Cast 0-5 /LPF; Urine Yeast Few - 1+
[2017-04-26] MEDS ORDERED: ARFORMOTEROL TARTRATE IH SCH (21:00)
[2017-04-26] MEDS ORDERED: ALPRAZolam 0.5 MG TABLET PO SCH (21:00)
[2017-04-26] MEDS: FORMOTEROL FUMARATE 20 MCG/2 ML VIAL IH SCH (21:12)
[2017-04-26] MEDS: FLUTICASONE/SALMETEROL 14 PUFF DISK.W.DEV IH SCH (21:13)
[2017-04-26] MEDS: THEOPHYLLINE ANHYDROUS 300 MG TAB.SR.12H PO SCH (21:14)
[2017-04-26] MEDS: BENZTROPINE MESYLATE 0.5 MG TABLET PO SCH (21:15)
[2017-04-26] MEDS: DONEPEZIL HCL 10 MG TABLET PO SCH (21:15)
[2017-04-26] MEDS: TRIAMCINOLONE ACETONIDE 15 APPL TUBE TP SCH (21:15)
[2017-04-26] MEDS: SIMVASTATIN 20 MG TABLET PO SCH (21:16)
[2017-04-27 06:06] LABS: Hemoglobin 9.9 gm/dL (12.5-16.0); Mean Cell Volume 87.3 fl (78-100); Mean Corpuscular Hemoglobin 26.2 pg (27-31); Mean Platelet Volume 10.3 fl (6.0-9.5); Neutrophil % 78.6 % (42-75.0); Platelet Count 183 K/mm3 (150-450); Red Blood Count 3.78 M/mm3 (4.2-5.4); Red Cell Distribution Width 17.6 % (11.5-14.0)
[2017-04-27 06:30] LABS: BUN/Creatinine Ratio 19.6 (9.0-21.6); Calcium * 8.7 mg/dL (7.9-10.9); Carbon Dioxide 28.7 mmol/L (24-32.6); Estimated Creat Clear 47.2; Potassium 3.7 mmol/L (3.4-4.6); Theophylline 7.1 mcg/mL (10-20)
[2017-04-27] MEDS: PANTOPRAZOLE SODIUM 40 MG TABLET.EC PO SCH (07:05)
[2017-04-27] MEDS: FORMOTEROL FUMARATE 20 MCG/2 ML VIAL IH SCH ×2 (07:32→18:12)
[2017-04-27] MEDS ORDERED: LEVOFLOXACIN/D5W 750 MG/150 ML BAG IV SCH (08:00)
[2017-04-27] MEDS ORDERED: NON-FORMULARY 1 DOSE DOSE (Cholecalciferol (Vitamin D3) [Vitamin D3] 1,000 UNIT) PO SCH (09:00)
[2017-04-27] MEDS ORDERED: MULTIVITAMINS 1 CAP CAPSULE PO SCH (09:00)
[2017-04-27] MEDS: FERROUS SULFATE 325 MG TABLET PO SCH ×2 (09:25→16:40)
[2017-04-27] MEDS: LORazepam 0.5 MG TABLET PO SCH ×3 (09:25→16:52)
[2017-04-27] MEDS: BETA-CAROTENE(A) W-C , E/MIN 1 TAB TABLET PO SCH (09:25)
[2017-04-27] MEDS: TOLTERODINE TARTRATE 2 MG CAPSULE PO SCH (09:26)
[2017-04-27] MEDS: BENZTROPINE MESYLATE 0.5 MG TABLET PO SCH ×2 (09:26→20:59)
[2017-04-27] MEDS: CALCIUM CARBONATE 500 MG TAB.CHEW PO SCH ×3 (09:26→16:40)
[2017-04-27] MEDS: THEOPHYLLINE ANHYDROUS 300 MG TAB.SR.12H PO SCH ×2 (09:29→21:00)
[2017-04-27] MEDS: MEMANTINE HCL 10 MG TABLET PO SCH (09:29)
[2017-04-27] MEDS: CYANOCOBALAMIN 1,000 MCG TABLET PO SCH (09:29)
[2017-04-27] MEDS: predniSONE 2.5 MG TABLET PO SCH (09:29)
[2017-04-27] MEDS: CHOLECALCIFEROL 1,000 UNIT CAPSULE PO SCH (09:29)
[2017-04-27] MEDS: MULTIVITAMIN/IRON/FOLIC ACID 1 TAB TABLET PO SCH (09:29)
[2017-04-27] MEDS: TRIAMCINOLONE ACETONIDE 15 APPL TUBE TP SCH ×2 (09:38→20:59)
[2017-04-27] MEDS: ENOXAPARIN SODIUM 40 MG/0.4 ML SYRG SC SCH (09:40)
[2017-04-27] MEDS: POLYETHYLENE GLYCOL 3350 119 GM BTL PO SCH (09:42)
[2017-04-27] MEDS: FLUTICASONE/SALMETEROL 14 PUFF DISK.W.DEV IH SCH ×2 (09:43→20:58)
--- NOTE | 2017-04-27 13:03 | PN ---
Subjective - Date and Time Seen Date: 04/27/17 Time: 07:35 Subjective Narrative: Not very helpful this morning. Confused and not cooperative. No apparent pain. Objective - Review of Systems Generalized/Overall Review: Reports: No Symptoms Reported - poor historian - Vitals Vitals: Last Vital Signs Selected Entries 04/27/17 01:27 Temperature 36.9 C Temperature Temporal Artery Source Scan Pulse Rate 81 Respiratory 20 Rate Respiratory Normal Depth Blood Pressure 109/51 Blood Pressure 70 Mean Blood Pressure Supine Position O2 Sat by Pulse 99 Oximetry Oxygen Delivery Nasal Cannula Method Oxygen Flow 3 Rate - Abnormal Lab Findings Abnormal Lab Findings: Abnormal Lab Results 04/26/17 04/26/17 04/27/17 Range/Units 16:41 18:14 05:55 WBC 14.0 H (4.0-10.5) K/mm3 RBC 3.78 L (4.2-5.4) M/mm3 Hgb 9.9 L (12.5-16.0) gm/dL Hct 33.0 L (37.0-47.0) % MCH 26.2 L (27-31) pg MCHC 30.0 L (32-36) g/dl RDW 17.6 H (11.5-14.0) % MPV 10.3 H (6.0-9.5) fl Immature Gran # (Auto) 0.05 H (0.000-0.0310) K/mm3 Neutrophils % 78.6 H (42-75.0) % Lymphocytes % 10.0 L (20-51) % Monocytes % 9.1 H (0.0-9) % Neutrophils # 11.0 H (1.3-6.0) K/mm3 Lymphocytes # 1.4 L (1.5-3.5) k/mm3 Monocytes # 1.3 H (0.0-1.0) k/mm3 pCO2 54.2 H (32.0-45.0) mmHg HCO3 29.0 H (21.0-28.0) mmol/L Total CO2 30.6 H (19.0-24.0) mmol/L Urine Protein 15 H (NEGATIVE) mg/dL Urine Blood 50 H (NEGATIVE) /ul Ur Leukocyte Esterase 25 H (NEGATIVE) /ul Urine RBC 10-25 H (0-5) /hpf Urine Bacteria 3+ H (NONE) Hyaline Casts 0-5 H (NONE) /LPF Urine Yeast Few - 1+ H (NONE) Theophylline (10-20) mcg/mL 04/27/17 Range/Units 05:55 WBC (4.0-10.5) K/mm3 RBC (4.2-5.4) M/mm3 Hgb (12.5-16.0) gm/dL Hct (37.0-47.0) % MCH (27-31) pg MCHC (32-36) g/dl RDW (11.5-14.0) % MPV (6.0-9.5) fl Immature Gran # (Auto) (0.000-0.0310) K/mm3 Neutrophils % (42-75.0) % Lymphocytes % (20-51) % Monocytes % (0.0-9) % Neutrophils # (1.3-6.0) K/mm3 Lymphocytes # (1.5-3.5) k/mm3 Monocytes # (0.0-1.0) k/mm3 pCO2 (32.0-45.0) mmHg HCO3 (21.0-28.0) mmol/L Total CO2 (19.0-24.0) mmol/L Urine Protein (NEGATIVE) mg/dL Urine Blood (NEGATIVE) /ul Ur Leukocyte Esterase (NEGATIVE) /ul Urine RBC (0-5) /hpf Urine Bacteria (NONE) Hyaline Casts (NONE) /LPF Urine Yeast (NONE) Theophylline 7.1 L (10-20) mcg/mL - Exam Constitutional: Present: Alert - poor historian ENT Exam: Present: normal ENT inspection Neck: Present: normal inspection Respiratory: Present: rhonchi Cardiovascular/Chest: Present: regular rate, rhythm, no murmur Abdomen: Present: Normal bowel sounds, soft, nontender, nondistended, no rebound tenderness, no hepatospenomegaly, no masses Extremity: Present: no pedal edema Skin Exam: Present: normal color, warm/dry, no cyanosis Neurologic: Present: alert Appearance: Present: appropriate appearance Assessment/Plan Plan Narrative: Antibiotics, follow labs. - Problems/Diagnosis (1) Alcohol abuse Problem: Acute (2) Alcohol intoxication Problem: Acute (3) Lactic acidosis Problem: Acute (4) Pneumonia Problem: Acute Qualifiers: Pneumonia type: due to unspecified organism Laterality: bilateral Lung location: lower lobe of lung Qualified Code(s): J18.9 - Pneumonia, unspecified organism
--- NOTE | 2017-04-27 16:40 | OR ---
Anesthesia Procedure Note - Anesthesia Procedure Note Date of Service: 04/27/17 Narrative: Vital Signs - Last Taken Temp 36.3 C L 04/27/17 15:16 Pulse 83 04/27/17 15:16 Resp 20 04/27/17 15:16 BP 131/54 04/27/17 15:16 Pulse Ox 99 04/27/17 15:16 O2 Oxygen Delivery Method Nasal Cannula 04/27/17 16:37 ANESTHESIA PROCEDURE NOTE Date of Procedure: 04/27/2017 Time of procedure: 1550. Performed by: ESAU [place]a CRNA, MSN Preprocedure diagnosis: Neutropenia, urinary tract infection. Post procedure diagnosis: Same. Procedure: Venipuncture for IV access. Indications: Neutropenia, urinary tract infection, lack of IV access. Findings: See below. Details of the procedure: The patient was prepped with Betadine and alcohol, 0.1 mL of 1% lidocaine solution was injected at the intended IV site. A #22- gauge IV was initiated in the left hand, however, the tissue surrounding the site immediately bruised indicating an infiltration that would probably be hard to overcome. The procedure of prepping the left hand was then repeated and a # 24-gauge IV was initiated in the left hand. The IV was then flushed and secured in place, then reported to the RN responsible for Noam's care. EBL: Minimal. Fluids: N/A. Specimen: N/A. Post procedure condition: The patient tolerated the procedure well. No complications were noted. Thank you for this consultation. Wes Snyder CRNA, ARNP, MSN
[2017-04-27] MEDS: SIMVASTATIN 20 MG TABLET PO SCH (21:00)
[2017-04-27] MEDS: DONEPEZIL HCL 10 MG TABLET PO SCH (21:00)
[2017-04-28 05:05] LABS: Hematocrit 30.7 % (37.0-47.0); Hemoglobin 9.4 gm/dL (12.5-16.0); Mean Cell Volume 86.5 fl (78-100); Mean Corpuscular Hemoglobin 26.5 pg (27-31); Mean Corpuscular Hgb Conc 30.6 g/dl (32-36); Mean Platelet Volume 9.9 fl (6.0-9.5); Neutrophil # 7.8 K/mm3 (1.3-6.0); Neutrophil % 70.7 % (42-75.0); Platelet Count 190 K/mm3 (150-450); Red Blood Count 3.55 M/mm3 (4.2-5.4); Red Cell Distribution Width 17.4 % (11.5-14.0)
[2017-04-28 05:22] LABS: Anion Gap 9.8 mmol/L (6.8-13.8); BUN/Creatinine Ratio 22.7 (9.0-21.6); Calcium * 8.7 mg/dL (7.9-10.9); Carbon Dioxide 30.8 mmol/L (24-32.6); Estimated Creat Clear 57.9; Potassium 3.6 mmol/L (3.4-4.6)
[2017-04-28] MEDS: FORMOTEROL FUMARATE 20 MCG/2 ML VIAL IH SCH ×2 (06:24→18:15)
[2017-04-28] MEDS: ALBUTEROL SULFATE 2.5 MG/0.5 ML VIAL.NEB IH PRN (06:24)
--- NOTE | 2017-04-28 07:03 | PN ---
Subjective - Date and Time Seen Date: 04/28/17 Time: 06:58 Subjective Narrative: pt. not communicative this am. does not appear to be in any distress, vitals improved. still on O2. Objective - Review of Systems Generalized/Overall Review: Reports: Fever EENTM: Reports: No Symptoms Reported Respiratory: Reports: Cough, Shortness of Breath Cardiac: Reports: No Symptoms Reported Abdominal: Denies: Vomiting, Abdominal Pain, Diarrhea Genitourinary Symptoms: Reports: No Symptoms Reported Musculoskeletal Complaints: Reports: No Symptoms Reported Neurological: Reports: Other - dementia? Skin: Reports: No Symptoms Reported Endocrine: Reports: No Symptoms Reported - Vitals Vitals: Last Vital Signs Temp 36.4 C L 04/28/17 06:08 Pulse 94 04/28/17 06:32 Resp 20 04/28/17 06:32 BP 127/44 04/28/17 06:08 Pulse Ox 98 04/28/17 06:24 - Abnormal Lab Findings Abnormal Lab Findings: Abnormal Lab Results 04/28/17 04/28/17 Range/Units 05:02 05:02 WBC 11.0 H D (4.0-10.5) K/mm3 RBC 3.55 L (4.2-5.4) M/mm3 Hgb 9.4 L (12.5-16.0) gm/dL Hct 30.7 L (37.0-47.0) % MCH 26.5 L (27-31) pg MCHC 30.6 L (32-36) g/dl RDW 17.4 H (11.5-14.0) % MPV 9.9 H (6.0-9.5) fl Immature Gran # (Auto) 0.04 H (0.000-0.0310) K/mm3 Lymphocytes % 16.8 L (20-51) % Monocytes % 10.3 H (0.0-9) % Neutrophils # 7.8 H (1.3-6.0) K/mm3 Monocytes # 1.1 H (0.0-1.0) k/mm3 BUN/Creatinine Ratio 22.7 H (9.0-21.6) - Exam Constitutional: Present: Alert, Mild distress, Elderly, Looks Older than stated age Neck: Present: supple Respiratory: Present: rales Cardiovascular/Chest: Present: regular rate, rhythm, systolic murmur Abdomen: Present: Normal bowel sounds, soft, nontender, nondistended Extremity: Present: no pedal edema, no calf tenderness Skin Exam: Present: normal color Neurologic: Present: disoriented x 3 Appearance: Present: neat, impaired insight Assessment/Plan - Problems/Diagnosis (1) Pneumonia Problem: Acute Qualifiers: Pneumonia type: due to unspecified organism Laterality: bilateral Lung location: lower lobe of lung Qualified Code(s): J18.9 - Pneumonia, unspecified organism Narrative: appears to be improving. will continue current regimen. switch to po in a day or two. (2) Dementia Problem: Chronic Qualifiers: Alzheimer's disease onset: unspecified onset Dementia behavioral disturbance: without behavioral disturbance (3) COPD (chronic obstructive pulmonary disease) Problem: Chronic Narrative: continue routine nebs, consider steroids if more wheezing. (4) Discharge planning issues Problem: Acute Narrative: anticipate her being her at least 2 more days, longer if she does not improve quickly.
[2017-04-28] MEDS: PANTOPRAZOLE SODIUM 40 MG TABLET.EC PO SCH (07:20)
[2017-04-28] MEDS ORDERED: LEVOFLOXACIN/D5W 750 MG/150 ML BAG IV SCH (08:00)
[2017-04-28] MEDS: FERROUS SULFATE 325 MG TABLET PO SCH ×2 (08:58→17:20)
[2017-04-28] MEDS: THEOPHYLLINE ANHYDROUS 300 MG TAB.SR.12H PO SCH ×2 (08:58→22:03)
[2017-04-28] MEDS: MULTIVITAMIN/IRON/FOLIC ACID 1 TAB TABLET PO SCH (08:58)
[2017-04-28] MEDS: BETA-CAROTENE(A) W-C , E/MIN 1 TAB TABLET PO SCH (08:58)
[2017-04-28] MEDS: CYANOCOBALAMIN 1,000 MCG TABLET PO SCH (08:58)
[2017-04-28] MEDS: TOLTERODINE TARTRATE 2 MG CAPSULE PO SCH (08:58)
[2017-04-28] MEDS: MEMANTINE HCL 10 MG TABLET PO SCH (08:58)
[2017-04-28] MEDS: BENZTROPINE MESYLATE 0.5 MG TABLET PO SCH ×2 (08:59→22:04)
[2017-04-28] MEDS: TRIAMCINOLONE ACETONIDE 15 APPL TUBE TP SCH ×2 (08:59→22:03)
[2017-04-28] MEDS: CHOLECALCIFEROL 1,000 UNIT CAPSULE PO SCH (08:59)
[2017-04-28] MEDS: CALCIUM CARBONATE 500 MG TAB.CHEW PO SCH ×3 (08:59→17:20)
[2017-04-28] MEDS: FLUTICASONE/SALMETEROL 14 PUFF DISK.W.DEV IH SCH ×2 (08:59→22:03)
[2017-04-28] MEDS: predniSONE 2.5 MG TABLET PO SCH (08:59)
[2017-04-28] MEDS: LORazepam 0.5 MG TABLET PO SCH ×3 (09:01→17:20)
[2017-04-28] MEDS: ENOXAPARIN SODIUM 40 MG/0.4 ML SYRG SC SCH (09:06)
[2017-04-28] MEDS: POLYETHYLENE GLYCOL 3350 119 GM BTL PO SCH (12:01)
[2017-04-28] MEDS: LORazepam 1 MG TABLET PO PRN ×2 (14:09→23:25)
[2017-04-28] MEDS: DONEPEZIL HCL 10 MG TABLET PO SCH (22:03)
[2017-04-28] MEDS: SIMVASTATIN 20 MG TABLET PO SCH (22:03)
[2017-04-29] MEDS: FORMOTEROL FUMARATE 20 MCG/2 ML VIAL IH SCH ×2 (06:13→18:13)
[2017-04-29] MEDS: ALBUTEROL SULFATE 2.5 MG/0.5 ML VIAL.NEB IH PRN (06:13)
[2017-04-29] MEDS: PANTOPRAZOLE SODIUM 40 MG TABLET.EC PO SCH (07:02)
[2017-04-29] MEDS: FLUTICASONE/SALMETEROL 14 PUFF DISK.W.DEV IH SCH ×2 (09:41→22:47)
[2017-04-29] MEDS: BENZTROPINE MESYLATE 0.5 MG TABLET PO SCH ×2 (09:42→22:47)
[2017-04-29] MEDS: MULTIVITAMIN/IRON/FOLIC ACID 1 TAB TABLET PO SCH (09:42)
[2017-04-29] MEDS: TOLTERODINE TARTRATE 2 MG CAPSULE PO SCH (09:42)
[2017-04-29] MEDS: LORazepam 0.5 MG TABLET PO SCH ×3 (09:42→17:24)
[2017-04-29] MEDS: FERROUS SULFATE 325 MG TABLET PO SCH ×2 (09:43→17:24)
[2017-04-29] MEDS: TRIAMCINOLONE ACETONIDE 15 APPL TUBE TP SCH ×2 (09:43→22:47)
[2017-04-29] MEDS: MEMANTINE HCL 10 MG TABLET PO SCH (09:43)
[2017-04-29] MEDS: POLYETHYLENE GLYCOL 3350 119 GM BTL PO SCH (09:43)
[2017-04-29] MEDS: predniSONE 2.5 MG TABLET PO SCH (09:44)
[2017-04-29] MEDS: CHOLECALCIFEROL 1,000 UNIT CAPSULE PO SCH (09:44)
[2017-04-29] MEDS: BETA-CAROTENE(A) W-C , E/MIN 1 TAB TABLET PO SCH (09:44)
[2017-04-29] MEDS: THEOPHYLLINE ANHYDROUS 300 MG TAB.SR.12H PO SCH ×2 (09:44→22:47)
[2017-04-29] MEDS: CALCIUM CARBONATE 500 MG TAB.CHEW PO SCH ×3 (09:44→17:24)
[2017-04-29] MEDS: ENOXAPARIN SODIUM 40 MG/0.4 ML SYRG SC SCH (09:44)
[2017-04-29] MEDS: CYANOCOBALAMIN 1,000 MCG TABLET PO SCH (09:44)
--- NOTE | 2017-04-29 10:42 | PN ---
Subjective - Date and Time Seen Date: 04/29/17 Time: 10:33 Subjective Narrative: pt. not communicative this am. does appear to be in some mild distress, vitals improved. still on O2. Objective - Review of Systems Generalized/Overall Review: Reports: Malaise. Denies: Chills, Fever EENTM: Reports: No Symptoms Reported Respiratory: Reports: Cough Cardiac: Denies: Chest Pain, Edema Abdominal: Reports: No Symptoms Reported Genitourinary Symptoms: Reports: No Symptoms Reported Musculoskeletal Complaints: Reports: No Symptoms Reported Neurological: Reports: No Symptoms Reported Skin: Reports: No Symptoms Reported Endocrine: Reports: No Symptoms Reported - Vitals Vitals: Last Vital Signs Temp 36.3 C L 04/29/17 10:02 Pulse 83 04/29/17 10:02 Resp 16 04/29/17 10:02 BP 144/56 04/29/17 10:02 Pulse Ox 96 04/29/17 10:02 - Exam Constitutional: Present: Alert, Mild distress ENT Exam: Present: hearing grossly normal Neck: Present: supple Respiratory: Present: accessory muscle use, rales - scattered rales, wheezes and rhonchi shantell. some accessor muscle use, rhonchi, wheezing, expiration ( prolonged) Cardiovascular/Chest: Present: regular rate, rhythm, no murmur Abdomen: Present: Normal bowel sounds, soft, nontender Extremity: Present: no calf tenderness Skin Exam: Present: normal color Neurologic: Present: normal mood/affect Appearance: Present: neat Thoughts: Present: no apparent hallucination Assessment/Plan - Problems/Diagnosis (1) Pneumonia Problem: Acute Qualifiers: Pneumonia type: due to unspecified organism Laterality: bilateral Lung location: lower lobe of lung Qualified Code(s): J18.9 - Pneumonia, unspecified organism Narrative: appears to be improving from pneumonia standpoint. no med changes at this time except to change to po to move toward potential discharge tomorrow. (2) Dementia Problem: Chronic Qualifiers: Alzheimer's disease onset: unspecified onset Dementia behavioral disturbance: without behavioral disturbance Narrative: stable no issues (3) COPD (chronic obstructive pulmonary disease) Problem: Chronic Narrative: appears to be worse this am so will change duoneb to scheduled. consider steroids but will see how dodie duoneb works first. (4) Respiratory failure Problem: Acute Qualifiers: Chronicity: acute Respiratory failure complication: hypoxia and hypercapnia Qualified Code(s): J96.01 - Acute respiratory failure with hypoxia Narrative: stable on 3LNC. no changes at the present. (5) Discharge planning issues Problem: Acute Narrative: improving slowly, though COPD seems worse today. will see how she is in the am. could potentially be discharged in am if this is improved.
[2017-04-29] MEDS: ALBUTEROL SULFATE/IPRATROPIUM 3 ML NEBU IH SCH ×3 (10:57→18:14)
[2017-04-29] MEDS: DONEPEZIL HCL 10 MG TABLET PO SCH (22:47)
[2017-04-29] MEDS: SIMVASTATIN 20 MG TABLET PO SCH (22:47)
[2017-04-30] MEDS: FORMOTEROL FUMARATE 20 MCG/2 ML VIAL IH SCH ×2 (06:34→18:20)
[2017-04-30] MEDS: ALBUTEROL SULFATE/IPRATROPIUM 3 ML NEBU IH SCH ×6 (06:35→23:23)
[2017-04-30] MEDS: PANTOPRAZOLE SODIUM 40 MG TABLET.EC PO SCH (07:49)
[2017-04-30] MEDS: TRIAMCINOLONE ACETONIDE 15 APPL TUBE TP SCH ×2 (08:55→20:26)
[2017-04-30] MEDS: FLUTICASONE/SALMETEROL 14 PUFF DISK.W.DEV IH SCH ×2 (08:55→20:18)
[2017-04-30] MEDS: MULTIVITAMIN/IRON/FOLIC ACID 1 TAB TABLET PO SCH (08:55)
[2017-04-30] MEDS: BETA-CAROTENE(A) W-C , E/MIN 1 TAB TABLET PO SCH (08:55)
[2017-04-30] MEDS: CHOLECALCIFEROL 1,000 UNIT CAPSULE PO SCH (08:55)
[2017-04-30] MEDS: MEMANTINE HCL 10 MG TABLET PO SCH (08:55)
[2017-04-30] MEDS: TOLTERODINE TARTRATE 2 MG CAPSULE PO SCH (08:55)
[2017-04-30] MEDS: CYANOCOBALAMIN 1,000 MCG TABLET PO SCH (08:55)
[2017-04-30] MEDS: POLYETHYLENE GLYCOL 3350 119 GM BTL PO SCH (08:55)
[2017-04-30] MEDS: BENZTROPINE MESYLATE 0.5 MG TABLET PO SCH ×2 (08:56→20:20)
[2017-04-30] MEDS: predniSONE 2.5 MG TABLET PO SCH (08:56)
[2017-04-30] MEDS: CALCIUM CARBONATE 500 MG TAB.CHEW PO SCH ×3 (08:56→17:26)
[2017-04-30] MEDS: LORazepam 0.5 MG TABLET PO SCH ×3 (08:56→17:26)
[2017-04-30] MEDS: THEOPHYLLINE ANHYDROUS 300 MG TAB.SR.12H PO SCH ×2 (08:56→20:21)
[2017-04-30] MEDS: FERROUS SULFATE 325 MG TABLET PO SCH ×2 (08:56→17:26)
[2017-04-30] MEDS: ENOXAPARIN SODIUM 40 MG/0.4 ML SYRG SC SCH (09:01)
[2017-04-30] MEDS ORDERED: LEVOFLOXACIN 750 MG TABLET PO SCH (11:00)
[2017-04-30] MEDS: NYSTATIN 60 ML BTL PO SCH ×4 (11:45→20:20)
--- NOTE | 2017-04-30 11:51 | PN ---
Subjective - Date and Time Seen Date: 04/30/17 Time: 11:46 Subjective Narrative: pt. not communicative this am. does appear to be in some mild distress, calling out but not coherent speech. vitals improved. still on O2. Objective - Review of Systems Generalized/Overall Review: Reports: Weakness EENTM: Reports: No Symptoms Reported Respiratory: Denies: Cough Cardiac: Reports: No Symptoms Reported Abdominal: Reports: No Symptoms Reported Genitourinary Symptoms: Reports: No Symptoms Reported Musculoskeletal Complaints: Reports: No Symptoms Reported Neurological: Reports: No Symptoms Reported Skin: Reports: No Symptoms Reported Endocrine: Reports: No Symptoms Reported - Vitals Vitals: Last Vital Signs Temp 36.3 C L 04/30/17 10:10 Pulse 90 04/30/17 10:47 Resp 22 H 04/30/17 10:10 BP 120/60 04/30/17 10:10 Pulse Ox 98 04/30/17 10:47 - Exam Constitutional: Present: Alert, Mild distress ENT Exam: Present: hearing grossly normal, other - white plaque on tongue. Neck: Present: supple Respiratory: Present: lungs clear, normal breath sounds, no respiratory distress , no accessory muscle use, expiration (prolonged) Cardiovascular/Chest: Present: regular rate, rhythm, no murmur Abdomen: Present: Normal bowel sounds, soft, nontender Extremity: Present: no calf tenderness Skin Exam: Present: normal color Appearance: Present: neat Eye contact: Present: good eye contact Cauti Physician Documentation - Urinary Catheter Management Uretheral (Ghosh) Urethral Indwelling: No Assessment/Plan - Problems/Diagnosis (1) Pneumonia Problem: Acute Qualifiers: Pneumonia type: due to unspecified organism Laterality: bilateral Lung location: lower lobe of lung Qualified Code(s): J18.9 - Pneumonia, unspecified organism Narrative: continue current Abx tx, consider change to PO for hopeful discharge in am. (2) Dementia Problem: Chronic Qualifiers: Alzheimer's disease onset: unspecified onset Dementia behavioral disturbance: without behavioral disturbance (3) COPD (chronic obstructive pulmonary disease) Problem: Chronic Narrative: wheezing has resolved with scheduled nebs. (4) Respiratory failure Problem: Acute Qualifiers: Chronicity: acute Respiratory failure complication: hypoxia and hypercapnia Qualified Code(s): J96.01 - Acute respiratory failure with hypoxia Narrative: continue O2 at 3LNC (5) Discharge planning issues Problem: Acute Narrative: hopefully discharge in the am. (6) Thrush of mouth and esophagus Problem: Acute Narrative: add nystatin.
[2017-04-30] MEDS: LORazepam 1 MG TABLET PO PRN (19:00)
[2017-04-30] MEDS: ACETAMINOPHEN 325 MG TABLET PO PRN (20:18)
[2017-04-30] MEDS: DONEPEZIL HCL 10 MG TABLET PO SCH (20:19)
[2017-04-30] MEDS: SIMVASTATIN 20 MG TABLET PO SCH (20:21)
[2017-05-01] MEDS: ALBUTEROL SULFATE/IPRATROPIUM 3 ML NEBU IH SCH ×4 (05:38→14:19)
[2017-05-01] MEDS: FORMOTEROL FUMARATE 20 MCG/2 ML VIAL IH SCH (06:17)
[2017-05-01] MEDS: PANTOPRAZOLE SODIUM 40 MG TABLET.EC PO SCH (07:28)
[2017-05-01 08:46] LABS: Hematocrit 31.9 % (37.0-47.0); Hemoglobin 9.5 gm/dL (12.5-16.0); Mean Cell Volume 87.6 fl (78-100); Mean Corpuscular Hemoglobin 26.1 pg (27-31); Mean Corpuscular Hgb Conc 29.8 g/dl (32-36); Mean Platelet Volume 10.4 fl (6.0-9.5); Neutrophil # 5.2 K/mm3 (1.3-6.0); Neutrophil % 63.6 % (42-75.0); Platelet Count 252 K/mm3 (150-450); Red Blood Count 3.64 M/mm3 (4.2-5.4); Red Cell Distribution Width 16.9 % (11.5-14.0); White Blood Count 8.2 K/mm3 (4.0-10.5)
[2017-05-01] MEDS: BENZTROPINE MESYLATE 0.5 MG TABLET PO SCH (09:14)
[2017-05-01] MEDS: TOLTERODINE TARTRATE 2 MG CAPSULE PO SCH (09:14)
[2017-05-01] MEDS: CHOLECALCIFEROL 1,000 UNIT CAPSULE PO SCH (09:14)
[2017-05-01] MEDS: BETA-CAROTENE(A) W-C , E/MIN 1 TAB TABLET PO SCH (09:14)
[2017-05-01] MEDS: FERROUS SULFATE 325 MG TABLET PO SCH (09:14)
[2017-05-01] MEDS: THEOPHYLLINE ANHYDROUS 300 MG TAB.SR.12H PO SCH (09:14)
[2017-05-01] MEDS: MULTIVITAMIN/IRON/FOLIC ACID 1 TAB TABLET PO SCH (09:14)
[2017-05-01] MEDS: predniSONE 2.5 MG TABLET PO SCH (09:14)
[2017-05-01] MEDS: MEMANTINE HCL 10 MG TABLET PO SCH (09:14)
[2017-05-01] MEDS: CALCIUM CARBONATE 500 MG TAB.CHEW PO SCH ×2 (09:15→12:34)
[2017-05-01] MEDS: ENOXAPARIN SODIUM 40 MG/0.4 ML SYRG SC SCH (09:15)
[2017-05-01] MEDS: CYANOCOBALAMIN 1,000 MCG TABLET PO SCH (09:15)
[2017-05-01] MEDS: FLUTICASONE/SALMETEROL 14 PUFF DISK.W.DEV IH SCH (09:15)
[2017-05-01] MEDS: NYSTATIN 60 ML BTL PO SCH ×2 (09:15→12:34)
[2017-05-01 09:16] LABS: Albumin * 2.7 gm/dl (3.4-5.0); BUN/Creatinine Ratio 19.7 (9.0-21.6); Bilirubin, Total 0.3 mg/dL (0.0-1.1); Ca. Corrected For Albumin 9.7 mg/dL (8.4-10.2); Carbon Dioxide 32.6 mmol/L (24-32.6); Potassium 3.6 mmol/L (3.4-4.6); Total Protein 6.4 gm/dL (6.2-8.2)
[2017-05-01] MEDS: POLYETHYLENE GLYCOL 3350 119 GM BTL PO SCH (09:16)
[2017-05-01] MEDS: TRIAMCINOLONE ACETONIDE 15 APPL TUBE TP SCH (09:16)
[2017-05-01] MEDS: LORazepam 0.5 MG TABLET PO SCH ×2 (09:19→12:34)
[2017-05-01] MEDS: ACETAMINOPHEN 325 MG TABLET PO PRN (09:28)
[2017-05-01] MEDS: LORazepam 1 MG TABLET PO PRN (13:23)
[2017-05-01 14:59] VITALS: BP 105/62
--- NOTE | 2017-05-01 15:00 | DS ---
(1) Lactic acidosis Problem: Acute Procedures Performed: none Results and Findings: (1) CVA (cerebral vascular accident) Problem: Chronic Qualifiers: CVA mechanism: unspecified Qualified Code(s): I63.9 - Cerebral infarction, unspecified (2) Dementia Problem: Chronic Qualifiers: Alzheimer's disease onset: unspecified onset Dementia behavioral disturbance: with behavioral disturbance (3) Pressure sore Problem: Acute Qualifiers: Pressure ulcer location: buttock Pressure ulcer stage: stage 2 Laterality : unspecified laterality Qualified Code(s): L89.302 - Pressure ulcer of unspecified buttock, stage 2 (4) Chronic respiratory failure with hypercapnia Problem: Chronic (5) Chronic respiratory failure with hypoxia Problem: Chronic (6) Aspiration into lower respiratory tract Problem: Chronic Qualifiers: Encounter type: subsequent encounter Qualified Code(s): T17.800D - Unspecified foreign body in other parts of respiratory tract causing asphyxiation, subsequent encounter (7) Pneumonia Problem: Acute Qualifiers: Pneumonia type: due to unspecified organism Laterality: right Lung location: lower lobe of lung Qualified Code(s): J18.1 - Lobar pneumonia, unspecified organism (8) Possible Urinary Retention Discharge Disposition: [facility] Disposition: [facility] Condition: Good Discharge Activity: Activity as tolerated Discharge Diet: General/regular food Discharge Level of Care:: SNF - Custodial Custodial Therapy: Physicial Therapy, Occupation Therapy Referrals: Jocelin Shaffer DO [Primary Care Provider] - Problem Oriented Discharge Instructions to Patient/Family: Community-Acquired Pneumonia, Adult, [id number] Additional Patient Instructions (free text): TCM at D/C if not Care Center candidate please. Pre and post void bladder capacity tomorrow Prescriptions (Any new or edited meds): Levofloxacin [Levaquin] 750 mg PO Q48H 14 Days tablet Complete Home Medications List: Complete Home Medication List: Bisacodyl [Dulcolax] 5 mg PO DAILY PRN 08/30/14 Calcium Carbonate [Tums] 500 mg PO TID 08/30/14 Acetaminophen [Tylenol] 650 mg PO Q6H PRN 07/05/16 Cyanocobalamin [Vitamin B-12] 1,000 mcg PO DAILY 07/05/16 Nitroglycerin [Nitrostat] 0.4 mg SL Q5MIN PRN 07/05/16 Polyethylene Glycol 3350 [Miralax] 17 gm PO DAILY 07/05/16 Omeprazole [Prilosec] 40 mg PO DAILY 08/11/16 Simvastatin [Zocor] 20 mg PO HS 08/11/16 Theophylline Anhydrous [Theophylline] 300 mg PO BID 08/11/16 predniSONE [Prednisone] 2.5 mg PO DAILY 12/21/16 Albuterol Sulfate/Ipratropium [Duoneb 2.5-0.5MG/3ML Soln] 3 ml IH Q4H PRN Ferrous Sulfate 325 mg PO BIDWM tablet 01/12/17 Albuterol Sulfate [Proair Hfa] 1 - 2 puff IH Q4H PRN 04/26/17 Arformoterol Tartrate [Brovana] 2 ml IH BID 04/26/17 Benztropine Mesylate [Cogentin] 1 mg PO BID 04/26/17 Carbamide Peroxide [Debrox] 1 drop OT PRN PRN 04/26/17 Cholecalciferol (Vitamin D3) [Vitamin D3] 1,000 unit PO DAILY 04/26/17 Diphenhydramine HCl/Zinc Acet [Anti-Itch 2%-0.1% Cream] 35 gm TP Q4H PRN Donepezil HCl [Aricept] 10 mg PO HS 04/26/17 Hydrophilic Ointment [Aquaphilic Ointment] 1 appl TP PRN PRN 04/26/17 LORazepam [Ativan] 0.5 mg PO TID 04/26/17 LORazepam [Ativan] 1 mg PO BID PRN 04/26/17 Memantine HCl [Namenda] 10 mg PO DAILY 04/26/17 Multivit,Tx with Iron,Minerals [Thera-M] 1 each PO DAILY 04/26/17 Polyvinyl Alcohol [Artificial Tears] 1 drop OP QID PRN 04/26/17 Tolterodine Tartrate [Detrol LA] 2 mg PO DAILY 04/26/17 Triamcinolone Aceton/Silicones [Dermazone 0.1% Kit] 1 each TP BID 04/26/17 Vit C/Vit E AC/Lut/Copper/Zinc [Preservision Lutein Softgel] 1 each PO DAILY Beta-Carotene(A) W-C , E/Min [Ocuvite] 1 tab PO DAILY tablet 05/01/17 Cholecalciferol [Vitamin D] 1,000 unit PO DAILY capsule 05/01/17 Fluticasone/Salmeterol [Advair 250-50 Diskus] 1 puff IH BID disk.w.dev Formoterol Fumarate [Perforomist] 20 mcg IH BIDRT vial 05/01/17 Levofloxacin [Levaquin] 750 mg PO Q48H 14 Days tablet 05/01/17 Nystatin [Mycostatin 100 Mu/Ml Suspension] 5 ml PO QID btl 05/01/17
== END 2017-05-01 16:00 | DRG 194 ==
LOC: ER 06:06 → MS 07:38
PROVIDERS: ADMIT Allergy & Immunology; ATTEND Internal Medicine
PROC: 4A033R1 Measurement of Arterial Saturation, Peripheral, Percutaneous Approach (ICD-10-PCS; principal; 2017-04-26)
DX: J18.1 Lobar pneumonia, unspecified organism (principal); J96.11 Chronic respiratory failure with hypoxia; B37.0 Candidal stomatitis; B37.81 Candidal esophagitis; L89.302 Pressure ulcer of unspecified buttock, stage 2; J44.9 Chronic obstructive pulmonary disease, unspecified; E78.5 Hyperlipidemia, unspecified; G30.9 Alzheimer's disease, unspecified; F02.80 Dementia in other diseases classified elsewhere, unspecified severity, without behavioral disturbance, psychotic disturbance, mood disturbance, and anxiety; T17.800D Unspecified foreign body in other parts of respiratory tract causing asphyxiation, subsequent encounter; I25.2 Old myocardial infarction; Z99.81 Dependence on supplemental oxygen; Z87.01 Personal history of pneumonia (recurrent); Z87.891 Personal history of nicotine dependence; Z86.73 Personal history of transient ischemic attack (TIA), and cerebral infarction without residual deficits; R32 Unspecified urinary incontinence; R35.0 Frequency of micturition; I10 Essential (primary) hypertension; R53.1 Weakness; R53.83 Other fatigue; E11.9 Type 2 diabetes mellitus without complications; D64.9 Anemia, unspecified
CPT/HCPCS: 36415; 36600; 71010; 80048; 80053; 80061; 80198; 81001; 82306; 82607; 82746; 82803; 83036; 83540; 83550; 83605; 83880; 84252; 84439; 84443; 84446; 84591; 85025; 86038; 87040; 87081; 93005; 94640; 94760; 96365; 99285; P9603

== ENCOUNTER 2017-05-09 18:10 | Emergency (ER) | payer MEDICARE, BC ==
[2017-05-09] MEDS ORDERED: LORazepam 2 MG/ML DISP.SYRIN ONE (19:02)
[2017-05-09] MEDS ORDERED: LORazepam 2 MG/ML DISP.SYRIN IM ONE ×2 (19:02→19:42)
--- NOTE | 2017-05-09 19:05 | ERNOTE ---
Medical Problem HPI - Narrative Date of Service: 05/09/17 - General Chief Complaint: General Assessment Time Seen by Provider: 05/09/17 18:49 Source: family Exam Limitations: no limitations - Immun/Allergies/Home Medications Immunizations: IMMUNIZATION HX Immunizations Up to Date Yes History of Influenza Vaccine Yes Hx Pneumococcal Vaccination Yes Allergies/Adverse Reactions: Allergies Penicillins Allergy (Severe, Verified 04/26/17 09:32) Anaphylaxis latex Allergy (Verified 04/26/17 09:32) Itching Sulfa (Sulfonamide Antibiotics) Allergy (Verified 04/26/17 09:32) Itching adhesive Adverse Reaction (Verified 04/26/17 09:32) Home Medications: HOME MEDICATIONS Bisacodyl [Dulcolax] 5 mg PO DAILY PRN 08/30/14 [Last Taken 08/11/15 08:00] Calcium Carbonate [Tums] 500 mg PO TID 08/30/14 [Last Taken 08/12/15 17:00] Acetaminophen [Tylenol] 650 mg PO Q6H PRN 07/05/16 [Last Taken Unknown] Cyanocobalamin [Vitamin B-12] 1,000 mcg PO DAILY 07/05/16 [Last Taken Unknown] Nitroglycerin [Nitrostat] 0.4 mg SL Q5MIN PRN 07/05/16 [Last Taken Unknown] Polyethylene Glycol 3350 [Miralax] 17 gm PO DAILY 07/05/16 [Last Taken Unknown] Omeprazole [Prilosec] 40 mg PO DAILY 08/11/16 [Last Taken Unknown] Simvastatin [Zocor] 20 mg PO HS 08/11/16 [Last Taken Unknown] Theophylline Anhydrous [Theophylline] 300 mg PO BID 08/11/16 [Last Taken Unknown ] predniSONE [Prednisone] 2.5 mg PO DAILY 12/21/16 [Last Taken Unknown] Albuterol Sulfate/Ipratropium [Duoneb 2.5-0.5MG/3ML Soln] 3 ml IH Q4H PRN [Last Taken Unknown] Ferrous Sulfate 325 mg PO BIDWM tablet 01/12/17 [Last Taken Unknown] Albuterol Sulfate [Proair Hfa] 1 - 2 puff IH Q4H PRN 04/26/17 [Last Taken Unknown] Arformoterol Tartrate [Brovana] 2 ml IH BID 04/26/17 [Last Taken Unknown] Benztropine Mesylate [Cogentin] 1 mg PO BID 04/26/17 [Last Taken Unknown] Carbamide Peroxide [Debrox] 1 drop OT PRN PRN 04/26/17 [Last Taken Unknown] Cholecalciferol (Vitamin D3) [Vitamin D3] 1,000 unit PO DAILY 04/26/17 [Last Taken Unknown] Diphenhydramine HCl/Zinc Acet [Anti-Itch 2%-0.1% Cream] 35 gm TP Q4H PRN [Last Taken Unknown] Donepezil HCl [Aricept] 10 mg PO HS 04/26/17 [Last Taken Unknown] Hydrophilic Ointment [Aquaphilic Ointment] 1 appl TP PRN PRN 04/26/17 [Last Taken Unknown] LORazepam [Ativan] 0.5 mg PO TID 04/26/17 [Last Taken Unknown] LORazepam [Ativan] 1 mg PO BID PRN 04/26/17 [Last Taken Unknown] Memantine HCl [Namenda] 10 mg PO DAILY 04/26/17 [Last Taken Unknown] Multivit,Tx with Iron,Minerals [Thera-M] 1 each PO DAILY 04/26/17 [Last Taken Unknown] Polyvinyl Alcohol [Artificial Tears] 1 drop OP QID PRN 04/26/17 [Last Taken Unknown] Tolterodine Tartrate [Detrol LA] 2 mg PO DAILY 04/26/17 [Last Taken Unknown] Triamcinolone Aceton/Silicones [Dermazone 0.1% Kit] 1 each TP BID 04/26/17 [ Last Taken Unknown] Vit C/Vit E AC/Lut/Copper/Zinc [Preservision Lutein Softgel] 1 each PO DAILY [Last Taken Unknown] Beta-Carotene(A) W-C , E/Min [Ocuvite] 1 tab PO DAILY tablet 05/01/17 [Last Taken Unknown] Cholecalciferol [Vitamin D] 1,000 unit PO DAILY capsule 05/01/17 [Last Taken Unknown] Fluticasone/Salmeterol [Advair 250-50 Diskus] 1 puff IH BID disk.w.dev [Last Taken Unknown] Formoterol Fumarate [Perforomist] 20 mcg IH BIDRT vial 05/01/17 [Last Taken Unknown] Levofloxacin [Levaquin] 750 mg PO Q48H 14 Days tablet 05/01/17 [Last Taken Unknown] Nystatin [Mycostatin 100 Mu/Ml Suspension] 5 ml PO QID btl 05/01/17 [Last Taken Unknown] - History of Present History Narrative: Pt. comes in with family and c/o worsening confusion, and new tongue thrusting to the L side with increased weakness and continued difficulty breathing. Pt. was hospitalized for increased agitation and pneumonia two weeks ago for a week and has not improved since she was admitted the previous time. Family denies any alleviating or aggravating factors despite pt. getting Ativan at [place]. Review of Systems - Review of Systems Constitutional: Present: recent illness, weakness. Absent: fever, chills, fatigue, malaise EYE: Present: no symptoms reported ENT: Present: no symptoms reported Respiratory: Present: shortness of breath, cough Cardiology: Absent: chest pain, palpitations, edema Gastrointestinal/Abdominal: Present: no symptoms reported. Absent: nausea, vomiting, diarrhea, abdominal pain Genitourinary: Present: no symptoms reported. Absent: frequency, decreased urinary output Musculoskeletal: Present: no symptoms reported. Absent: back pain, joint pain Skin: Present: no symptoms reported. Absent: rash, change in hair/nails Neurological: Present: anxiety, weakness - generalized, pre-existing deficit, other - EPS. Absent: headache, dizziness/light-headedness, numbness, tingling All Other Systems: All systems neg except as marked - Patient's Past Medical History Patient History - Medical: Anemia, Alzheimer's Disease, Dementia, GERD, UTI'S Patient History - Cardiac/Respiratory: COPD, CVA/Stroke, Hyperlipidemia, Pneumonia Patient History - Cancer: No Hx of Cancer Patient History - Surgical Procedures: Back Surgery, Cholecystectomy, Colonoscopy, EGD, Hysterectomy, T & A, Orthopedic Patient History - Other: None - Family History Mother Family History - Medical: Family History - Cardiac/Respiratory: CVA/Stroke, Hypertension Family History - Cancer: No pertinent family hx Father Family History - Medical: , History Unknown, Bipolar Family History - Cardiac/Respiratory: No pertinent hx Family History - Cancer: History Unknown - Social History Living Situations: alf Abuse History: No History of abuse Psych History: Psychiatric Hx Smoking Status: Former smoker Alcohol Use: none Drug Use: none - Immunizations Immunizations Up to Date: Yes Hx Pneumococcal Vaccination: Yes History of Influenza Vaccine: Yes Physical Exam - Physical Exam General Appearance: Present: wd/wn, alert, no apparent distress Head Exam: Present: normal inspection, no evidence of injury Eye Exam: Normal inspection: bilateral, PERRL: bilateral, EOMI: bilateral Ears, Nose, Throat: Present: normal ENT inspection, normal pharynx Neck: Present: normal inspection, nontender. Absent: lymphadenopathy (R), lymphadenopathy (L) Respiratory: Present: no respiratory distress, no accessory muscle use, chest nontender, rhonchi - throughout Cardiovascular/Chest: Present: regular rate, rhythm, no murmur, normal peripheral pulses Gastrointestinal/Abdominal: Present: normal bowel sounds, nontender, nondistended, soft, no organomegaly Back Exam: Present: normal inspection, normal range of motion, no CVA tenderness , no vertebral tenderness Extremity Exam: Present: normal inspection, non-tender, normal range of motion, no edema Neurological Exam: Present: alert, oriented, normal mood/affect, no motor/ sensory deficits Skin Exam: Present: warm/dry, pallor ED Progress - Date and Time Seen: Date and Time: 05/09/17 22:[address] Jarquin and as CRP is mildly elevated and opacities in lungs are persistent he recommends obtaining CT of the chest to rule out any abnormalities such as carcinoma or blebs that may be causing symptoms. Discussed with Shahnaz and she reccommends getting CT with contrast would be better to see the underlying abnormality. - Results and Orders Patient's Lab Results:: I have reviewed the patient's lab results. - Vital Signs Patient's Vital Signs:: I have reviewed the patient's vital signs. Vital Signs: Vital Signs 05/09/17 05/09/17 18:40 18:58 Temperature 36.9 C Pulse Rate 90 94 Respiratory 18 25 H Rate Blood Pressure 138/82 O2 Sat by Pulse 100 97 Oximetry - Progress/Reassessment Chief Complaint: General Assessment Progress:: Improved - Transfer of Care Physician Sign Out: Seema Tejada Receiving Physician: Josue Jarquin Pending Results: CT/MRI results Expected Disposition: Admit Departure - Departure Clinical Impression: SOB (shortness of breath) Dementia Qualifiers: Dementia type: unspecified type Dementia behavioral disturbance: with behavioral disturbance Qualified Code(s): F03.91 - Unspecified dementia with behavioral disturbance Referrals: Jocelin Shaffer DO [Primary Care Provider] -
[2017-05-09 19:25] LABS: Hematocrit 32.4 % (37.0-47.0); Hemoglobin 10.1 gm/dL (12.5-16.0); Mean Cell Volume 84.6 fl (78-100); Mean Corpuscular Hemoglobin 26.4 pg (27-31); Mean Corpuscular Hgb Conc 31.2 g/dl (32-36); Mean Platelet Volume 10.2 fl (6.0-9.5); Neutrophil # 7.2 K/mm3 (1.3-6.0); Platelet Count 319 K/mm3 (150-450); Red Blood Count 3.83 M/mm3 (4.2-5.4); Red Cell Distribution Width 16.8 % (11.5-14.0); White Blood Count 10.2 K/mm3 (4.0-10.5)
[2017-05-09] MEDS ORDERED: diphenhydrAMINE HCL 50 MG/ML VIAL IM ONE (19:41)
[2017-05-09 19:43] LABS: Albumin * 3.1 gm/dl (3.4-5.0); Anion Gap 10.3 mmol/L (6.8-13.8); Bilirubin, Total 0.2 mg/dL (0.0-1.1); Ca. Corrected For Albumin 9.4 mg/dL (8.4-10.2); Potassium 4.3 mmol/L (3.4-4.6); Total Protein 7.4 gm/dL (6.2-8.2)
[2017-05-09] MEDS ORDERED: diphenhydrAMINE HCL 50 MG/ML VIAL ONE (20:05)
[2017-05-09 20:06] LABS: Urine Bilirubin Negative (NEGATIVE); Urine Blood Negative /ul (NEGATIVE); Urine Ketone Negative (NEGATIVE); Urine Nitrite Negative (NEGATIVE); Urine Protein Negative (NEGATIVE); Urine Specific Gravity >=1.030 SP.GR. (1.005-1.010); Urine Urobilinogen Normal (NORMAL)
[2017-05-09 20:07] LABS: Urine Appearance Clear; Urine Bacteria None Seen; Urine Color Yellow; Urine RBC None Seen /hpf (0-5); Urine WBC TRACE /hpf (0-5)
[2017-05-09] MEDS ORDERED: NORMAL SALINE 1,000 ML IV ONE (20:29)
[2017-05-09] MEDS ORDERED: BENZTROPINE MESYLATE 1 MG/ML AMPUL IM SCH (21:00)
[2017-05-09] MEDS ORDERED: METHYLPREDNISOLONE ACETATE 80 MG/ML VIAL IM ONE (22:26)
[2017-05-09] MEDS ORDERED: ALBUTEROL SULFATE/IPRATROPIUM 3 ML NEBU IH ONE ×2 (22:26→22:55)
[2017-05-09] MEDS ORDERED: METHYLPREDNISOLONE SOD SUCC/PF 40 MG/ML VIAL IV ONE (22:55)
[2017-05-09] MEDS ORDERED: METHYLPREDNISOLONE SOD SUCC/PF 40 MG/ML VIAL ONE ×2 (22:55→22:58)
[2017-05-10 00:16] VITALS: BP 152/68
== END 2017-05-10 00:17 ==
LOC: ER 18:10
DX: J44.1 Chronic obstructive pulmonary disease with (acute) exacerbation (principal); R06.02 Shortness of breath; F03.91 Unspecified dementia, unspecified severity, with behavioral disturbance; Z87.440 Personal history of urinary (tract) infections; Z87.891 Personal history of nicotine dependence

== ENCOUNTER 2017-06-25 13:47 | Emergency (ER) | payer MEDICARE, BC ==
[2017-06-25 14:10] LABS: Hematocrit 37.6 % (37.0-47.0); Hemoglobin 11.6 gm/dL (12.5-16.0); Mean Cell Volume 88.3 fl (78-100); Mean Corpuscular Hemoglobin 27.2 pg (27-31); Mean Corpuscular Hgb Conc 30.9 g/dl (32-36); Mean Platelet Volume 10.1 fl (6.0-9.5); Neutrophil # 6.9 K/mm3 (1.3-6.0); Neutrophil % 66.1 % (42-75.0); Platelet Count 276 K/mm3 (150-450); Red Blood Count 4.26 M/mm3 (4.2-5.4); Red Cell Distribution Width 14.6 % (11.5-14.0); White Blood Count 10.4 K/mm3 (4.0-10.5)
[2017-06-25] MEDS ORDERED: ACETAMINOPHEN 650 MG SUPP.RECT ONE (14:10)
[2017-06-25] MEDS ORDERED: ACETAMINOPHEN 650 MG SUPP.RECT RC ONE (14:10)
--- NOTE | 2017-06-25 14:12 | ERNOTE ---
Neuro HPI ER Record Presenting Symptoms: other - lethargy Time Seen by Provider: 06/25/17 13:50 Source: detention records Immunizations: IMMUNIZATION HX Immunizations Up to Date Yes History of Influenza Vaccine Yes Hx Pneumococcal Vaccination Yes Allergies/Adverse Reactions: Allergies Allergy/AdvReac Type Severity Reaction Status Date / Time Penicillins Allergy Severe Anaphylaxis Verified 06/25/17 13:57 latex Allergy Itching Verified 06/25/17 13:57 Sulfa (Sulfonamide Allergy Itching Verified 06/25/17 13:57 Antibiotics) adhesive AdvReac Verified 06/25/17 13:57 Home Medications: HOME MEDICATIONS Calcium Carbonate [Tums] 500 mg PO TID 08/30/14 [Last Taken 08/12/15 17:00] Acetaminophen [Tylenol] 650 mg PO Q6H PRN 07/05/16 [Last Taken Unknown] Cyanocobalamin [Vitamin B-12] 1,000 mcg PO DAILY 07/05/16 [Last Taken Unknown] Nitroglycerin [Nitrostat] 0.4 mg SL Q5MIN PRN 07/05/16 [Last Taken Unknown] Polyethylene Glycol 3350 [Miralax] 17 gm PO DAILY 07/05/16 [Last Taken Unknown] Omeprazole [Prilosec] 40 mg PO DAILY 08/11/16 [Last Taken Unknown] Simvastatin [Zocor] 20 mg PO HS 08/11/16 [Last Taken Unknown] Theophylline Anhydrous [Theophylline] 300 mg PO BID 08/11/16 [Last Taken Unknown ] predniSONE [Prednisone] 2.5 mg PO DAILY 12/21/16 [Last Taken Unknown] Albuterol Sulfate/Ipratropium [Duoneb 2.5-0.5MG/3ML Soln] 3 ml IH Q4H PRN [Last Taken Unknown] Ferrous Sulfate 325 mg PO BIDWM tablet 01/12/17 [Last Taken Unknown] Albuterol Sulfate [Proair Hfa] 1 - 2 puff IH Q4H PRN 04/26/17 [Last Taken Unknown] Arformoterol Tartrate [Brovana] 2 ml IH BID 04/26/17 [Last Taken Unknown] Donepezil HCl [Aricept] 10 mg PO HS 04/26/17 [Last Taken Unknown] Hydrophilic Ointment [Aquaphilic Ointment] 1 appl TP PRN PRN 04/26/17 [Last Taken Unknown] LORazepam [Ativan] 0.5 mg PO TID 04/26/17 [Last Taken Unknown] LORazepam [Ativan] 1 mg PO BID PRN 04/26/17 [Last Taken Unknown] Polyvinyl Alcohol [Artificial Tears] 1 drop OP QID PRN 04/26/17 [Last Taken Unknown] Tolterodine Tartrate [Detrol LA] 2 mg PO DAILY 04/26/17 [Last Taken Unknown] Triamcinolone Aceton/Silicones [Dermazone 0.1% Kit] 1 each TP BID 04/26/17 [ Last Taken Unknown] Vit C/Vit E AC/Lut/Copper/Zinc [Preservision Lutein Softgel] 1 each PO DAILY [Last Taken Unknown] Beta-Carotene(A) W-C , E/Min [Ocuvite] 1 tab PO DAILY tablet 05/01/17 [Last Taken Unknown] Cholecalciferol [Vitamin D] 1,000 unit PO DAILY capsule 05/01/17 [Last Taken Unknown] Fluticasone/Salmeterol [Advair 250-50 Diskus] 1 puff IH BID disk.w.dev [Last Taken Unknown] Formoterol Fumarate [Perforomist] 20 mcg IH BIDRT vial 05/01/17 [Last Taken Unknown] Nystatin [Mycostatin 100 Mu/Ml Suspension] 5 ml PO QID btl 05/01/17 [Last Taken Unknown] Albuterol Sulfate/Ipratropium [Duoneb 2.5-0.5MG/3ML Soln] 3 ml IH QID #150 vial 05/09/17 [Last Taken Unknown] Arformoterol Tartrate [Brovana] 15 mcg IH BID 06/25/17 [Last Taken Unknown] risperiDONE [Risperdal] 1 mg PO DAILY 06/25/17 [Last Taken Unknown] - History of Present Illness Narrative: According to [facility] records patient was not herself over the weekend, decreased responsiveness, not taken po well, concern about her drugs being to strong. Patient came with van to the office. When waiting to see Dr Mora she was noticed to be very lethargic and minimally responsive and brought to the ER for evaluation. History is obtained from the aid as well as the detention records. Patient also has a history of dementia - Character of Deficits Baseline Cognition: Present: alert but confused Baseline Gait: Present: walks only w/ assistance Review of Systems - Narrative Narrative: unable to obtain - Patient's Past Medical History Patient History - Medical: Anemia, Alzheimer's Disease, Dementia, GERD, UTI'S Patient History - Cardiac/Respiratory: COPD, CVA/Stroke, Hyperlipidemia, Pneumonia Patient History - Cancer: No Hx of Cancer Patient History - Surgical Procedures: Back Surgery, Cholecystectomy, Colonoscopy, EGD, Hysterectomy, T & A, Orthopedic Patient History - Other: None - Family History Mother Family History - Medical: Family History - Cardiac/Respiratory: CVA/Stroke, Hypertension Family History - Cancer: No pertinent family hx Father Family History - Medical: , History Unknown, Bipolar Family History - Cardiac/Respiratory: No pertinent hx Family History - Cancer: History Unknown - Social History Living Situations: home Abuse History: No History of abuse Psych History: Psychiatric Hx Alcohol Use: none Drug Use: none - Immunizations Immunizations Up to Date: Yes Hx Pneumococcal Vaccination: Yes History of Influenza Vaccine: Yes Physical Exam - Physical Exam General Appearance: Present: wd/wn, no apparent distress, lethargic Head Exam: Present: normal inspection, no evidence of injury Eye Exam: Normal inspection: bilateral Ears, Nose, Throat: Present: dry mucous membranes Respiratory: Present: no respiratory distress, no accessory muscle use, rales - few Cardiovascular/Chest: Present: regular rate, rhythm, no murmur Gastrointestinal/Abdominal: Present: nontender, nondistended, soft Extremity Exam: Present: no edema Neurological Exam: Present: other - not following commands Skin Exam: Present: normal color, warm/dry ED Progress - Results and Orders Patient's Lab Results:: I have reviewed the patient's lab results. - Vital Signs Patient's Vital Signs:: I have reviewed the patient's vital signs. Vital Signs: Vital Signs 06/25/17 13:51 Temperature 39.1 C H Pulse Rate 129 H Respiratory 23 H Rate Blood Pressure 164/85 O2 Sat by Pulse 96 Oximetry - EKG EKG: NSR - sinustachy with PAC EKG read: Interp. by me - X-Ray X-Ray #1 X-Ray: chest - no acute changes Interpretation: Reviewed by me - CT/Ultrasound CT/Ultrasound Narrative: CT head: atrophy, no acute changes - Progress/Reassessment Chief Complaint: General Assessment Progress Note-Subjective: 06/25/17 15:07 patient temp decreased after tylenol, more alert,opening eyes, still not following commands (dementia?) 06/25/17 15:40 discussed with angel Camejo to treat outpatient at the [facility], treat with cipro 500mg bid for five days, cultures pending 06/25/17 16:08 patient able to swallow pill Departure Clinical Impression: UTI (urinary tract infection) Qualifiers: Urinary tract infection type: acute cystitis Hematuria presence: without hematuria Qualified Code(s): N30.00 - Acute cystitis without hematuria Fever Qualifiers: Fever type: unspecified Qualified Code(s): R50.9 - Fever, unspecified - Departure Disposition: [facility] Condition: Stable Referrals: Jocelin Shaffer DO [Primary Care Provider] -
[2017-06-25 14:27] LABS: Urine Bilirubin Negative (NEGATIVE); Urine Blood Negative /ul (NEGATIVE); Urine Ketone Negative (NEGATIVE); Urine Nitrite Negative (NEGATIVE); Urine Protein Negative (NEGATIVE); Urine Specific Gravity 1.015 SP.GR. (1.005-1.010); Urine Urobilinogen Normal (NORMAL)
[2017-06-25 14:28] LABS: ALT 16 U/L (19-67); AST 34 U/L (0-48); Albumin * 3.1 gm/dl (3.4-5.0); Alkaline Phosphatase * 108 U/L (50-170); Anion Gap 10.8 mmol/L (6.8-13.8); BUN/Creatinine Ratio 15.6 (9.0-21.6); Bilirubin, Total 0.3 mg/dL (0.0-1.1); Blood Urea Nitrogen 12 mg/dL (3-23); Ca. Corrected For Albumin 9.5 mg/dL (8.4-10.2); Calcium * 9.1 mg/dL (7.9-10.9); Carbon Dioxide 30.9 mmol/L (24-32.6); Chloride 100 mmol/L (97-106); Glucose * 104 mg/dL (70-110); Potassium 3.7 mmol/L (3.4-4.6); Sodium 138 mmol/L (132-142); Total Protein 7.9 gm/dL (6.2-8.2); Troponin I Less than 0.017 ng/ml (0.00-0.10)
[2017-06-25 14:39] LABS: Urine Appearance Slightly Cloudy; Urine Bacteria 4+; Urine Color Yellow; Urine RBC None Seen /hpf (0-5); Urine WBC 0-5 /hpf (0-5); Urine Yeast Few - 1+
[2017-06-25 15:39] VITALS: BP 159/70
[2017-06-25] MEDS ORDERED: CIPROFLOXACIN HCL 250 MG TABLET PO ONE (15:44)
[2017-06-25] MEDS ORDERED: CIPROFLOXACIN HCL 250 MG TABLET ONE (15:48)
== END 2017-06-25 16:27 ==
LOC: ER 13:47
DX: N30.00 Acute cystitis without hematuria (principal); R50.9 Fever, unspecified; F03.90 Unspecified dementia, unspecified severity, without behavioral disturbance, psychotic disturbance, mood disturbance, and anxiety; J44.9 Chronic obstructive pulmonary disease, unspecified; E78.5 Hyperlipidemia, unspecified

== ENCOUNTER 2017-07-30 20:45 | Emergency (ER) | payer MEDICARE, BC ==
--- NOTE | 2017-07-30 21:02 | ERNOTE ---
Dyspnea - General Presenting Symptoms: shortness of breath Time Seen by Provider: 07/30/17 20:53 Source: patient, [facility] records Exam Limitations: clinical condition, physical impairment - Immun/Allergies/Home Medications Immunizations: IMMUNIZATION HX Immunizations Up to Date Yes History of Influenza Vaccine Yes Hx Pneumococcal Vaccination Yes Allergies/Adverse Reactions: Allergies Penicillins Allergy (Severe, Verified 06/25/17 13:57) Anaphylaxis latex Allergy (Verified 06/25/17 13:57) Itching Sulfa (Sulfonamide Antibiotics) Allergy (Verified 06/25/17 13:57) Itching adhesive Adverse Reaction (Verified 06/25/17 13:57) Home Medications: HOME MEDICATIONS Calcium Carbonate [Tums] 500 mg PO TID 08/30/14 [Last Taken 08/12/15 17:00] Acetaminophen [Tylenol] 650 mg PO Q6H PRN 07/05/16 [Last Taken Unknown] Cyanocobalamin [Vitamin B-12] 1,000 mcg PO DAILY 07/05/16 [Last Taken Unknown] Nitroglycerin [Nitrostat] 0.4 mg SL Q5MIN PRN 07/05/16 [Last Taken Unknown] Polyethylene Glycol 3350 [Miralax] 17 gm PO DAILY 07/05/16 [Last Taken Unknown] Omeprazole [Prilosec] 40 mg PO DAILY 08/11/16 [Last Taken Unknown] Simvastatin [Zocor] 20 mg PO HS 08/11/16 [Last Taken Unknown] Theophylline Anhydrous [Theophylline] 300 mg PO BID 08/11/16 [Last Taken Unknown ] predniSONE [Prednisone] 2.5 mg PO DAILY 12/21/16 [Last Taken Unknown] Albuterol Sulfate/Ipratropium [Duoneb 2.5-0.5MG/3ML Soln] 3 ml IH Q4H PRN [Last Taken Unknown] Ferrous Sulfate 325 mg PO BIDWM tablet 01/12/17 [Last Taken Unknown] Albuterol Sulfate [Proair Hfa] 1 - 2 puff IH Q4H PRN 04/26/17 [Last Taken Unknown] Arformoterol Tartrate [Brovana] 2 ml IH BID 04/26/17 [Last Taken Unknown] Donepezil HCl [Aricept] 10 mg PO HS 04/26/17 [Last Taken Unknown] Hydrophilic Ointment [Aquaphilic Ointment] 1 appl TP PRN PRN 04/26/17 [Last Taken Unknown] LORazepam [Ativan] 0.5 mg PO TID 04/26/17 [Last Taken Unknown] LORazepam [Ativan] 1 mg PO BID PRN 04/26/17 [Last Taken Unknown] Polyvinyl Alcohol [Artificial Tears] 1 drop OP QID PRN 04/26/17 [Last Taken Unknown] Tolterodine Tartrate [Detrol LA] 2 mg PO DAILY 04/26/17 [Last Taken Unknown] Triamcinolone Aceton/Silicones [Dermazone 0.1% Kit] 1 each TP BID 04/26/17 [ Last Taken Unknown] Vit C/Vit E AC/Lut/Copper/Zinc [Preservision Lutein Softgel] 1 each PO DAILY [Last Taken Unknown] Beta-Carotene(A) W-C , E/Min [Ocuvite] 1 tab PO DAILY tablet 05/01/17 [Last Taken Unknown] Cholecalciferol [Vitamin D] 1,000 unit PO DAILY capsule 05/01/17 [Last Taken Unknown] Fluticasone/Salmeterol [Advair 250-50 Diskus] 1 puff IH BID disk.w.dev [Last Taken Unknown] Formoterol Fumarate [Perforomist] 20 mcg IH BIDRT vial 05/01/17 [Last Taken Unknown] Nystatin [Mycostatin 100 Mu/Ml Suspension] 5 ml PO QID btl 05/01/17 [Last Taken Unknown] Albuterol Sulfate/Ipratropium [Duoneb 2.5-0.5MG/3ML Soln] 3 ml IH QID #150 vial 05/09/17 [Last Taken Unknown] Arformoterol Tartrate [Brovana] 15 mcg IH BID 06/25/17 [Last Taken Unknown] risperiDONE [Risperdal] 1 mg PO DAILY 06/25/17 [Last Taken Unknown] - History of Present Illness Narrative: pt has had cough since having pneumonia a month ago. Today she became more short of breath throughout the day and was brought to the ED when neb treatments were not beneficial Severity: moderate Treatment [employer]: albuterol, other - by NH staff Frequency of episodes: Reports: occassional episodes Modifying Factors - (Improves): Reports: oxygen Associated Symptoms-Dyspnea: Reports: fever/chills, sweating Prior Treatment: Reports: recently seen, recently hospitalized Review of Systems - Review of Systems Constitutional: Present: recent illness - pneumonia, fever, diaphoresis EYE: Present: no symptoms reported ENT: Present: no symptoms reported Respiratory: Present: shortness of breath, cough, wheezing Cardiology: Present: edema. Absent: chest pain Gastrointestinal/Abdominal: Present: no symptoms reported Genitourinary: Present: no symptoms reported Musculoskeletal: Present: no symptoms reported Skin: Present: no symptoms reported Neurological: Present: pre-existing deficit - dementia Endocrine: Present: no symptoms reported Hematologic/Lymphatic: Present: no symptoms reported Psych: Present: no symptoms reported - Patient's Past Medical History Patient History - Medical: Anemia, Alzheimer's Disease, Dementia, GERD, UTI'S Patient History - Cardiac/Respiratory: COPD, CVA/Stroke, Hyperlipidemia, Pneumonia Patient History - Cancer: No Hx of Cancer Patient History - Surgical Procedures: Back Surgery, Cholecystectomy, Colonoscopy, EGD, Hysterectomy, T & A, Orthopedic Patient History - Other: None - Family History Mother Family History - Medical: Family History - Cardiac/Respiratory: CVA/Stroke, Hypertension Family History - Cancer: No pertinent family hx Father Family History - Medical: , History Unknown, Bipolar Family History - Cardiac/Respiratory: No pertinent hx Family History - Cancer: History Unknown - Social History Abuse History: No History of abuse Psych History: Psychiatric Hx - Immunizations Immunizations Up to Date: Yes Hx Pneumococcal Vaccination: Yes History of Influenza Vaccine: Yes Physical Exam - Physical Exam General Appearance: Present: moderate distress, anxious Head Exam: Present: normal inspection, no evidence of injury Ears, Nose, Throat: Present: normal ENT inspection Neck: Present: normal inspection, nontender, supple Respiratory: Present: respiratory distress, decreased breath sounds Cardiovascular/Chest: Present: tachycardia, irregularly irregular Gastrointestinal/Abdominal: Present: normal bowel sounds, nontender, nondistended Back Exam: Present: normal inspection, normal range of motion Extremity Exam: Present: extremity edema Neurological Exam: Present: alert, no motor/sensory deficits Skin Exam: Present: normal color, warm/dry Lymphatic Exam: Present: no adenopathy ED Progress - Results and Orders Patient's Lab Results:: I have reviewed the patient's lab results. Results and Orders: Laboratory Tests 04/26/17 04/26/17 04/26/17 06:35 06:35 06:35 WBC 16.2 H D Hgb 11.0 L Hct 36.1 L Plt Count 209 pCO2 pO2 HCO3 Total CO2 Base Excess ABG pH Sodium 138 Potassium 3.8 Chloride 102 Carbon Dioxide 29.2 BUN 13 Creatinine 0.82 Est GFR (Non-Af Amer) Random Glucose 108 D Lactic Acid, Venous 1.0 Calcium 8.9 Calcium Adj for Albumin 9.1 Total Bilirubin 0.5 AST 20 ALT 16 L Alkaline Phosphatase 97 B-Natriuretic Peptide 515 Total Protein 7.5 Albumin 3.3 L Urine Color Urine Appearance Urine pH Ur Specific [place] Urine Protein Urine Glucose (UA) Urine Ketones Urine Blood Urine Nitrate Urine Bilirubin Urine Urobilinogen Ur Leukocyte Esterase Urine RBC Urine WBC Ur Epithelial Cells Urine Bacteria Urine Culture Comments 07/30/17 07/30/17 07/30/17 21:20 21:30 21:30 WBC 26.8 H Hgb 11.6 L Hct 37.7 Plt Count 322 pCO2 46.0 H pO2 81.3 L HCO3 28.8 H Total CO2 30.2 H Base Excess 3.6 H ABG pH 7.41 Sodium 139 Potassium 4.0 Chloride 101 Carbon Dioxide 31.1 BUN 12 Creatinine 1.00 Est GFR (Non-Af Amer) 57 L D Random Glucose 116 H Lactic Acid, Venous Calcium 8.7 Calcium Adj for Albumin 9.0 Total Bilirubin 0.3 AST 23 ALT 12 L Alkaline Phosphatase 114 B-Natriuretic Peptide 719 H Total Protein 8.1 Albumin 3.2 L Urine Color Urine Appearance Urine pH Ur Specific [place] Urine Protein Urine Glucose (UA) Urine Ketones Urine Blood Urine Nitrate Urine Bilirubin Urine Urobilinogen Ur Leukocyte Esterase Urine RBC Urine WBC Ur Epithelial Cells Urine Bacteria Urine Culture Comments 07/30/17 07/30/17 21:30 21:43 WBC Hgb Hct Plt Count pCO2 pO2 HCO3 Total CO2 Base Excess ABG pH Sodium Potassium Chloride Carbon Dioxide BUN Creatinine Est GFR (Non-Af Amer) Random Glucose Lactic Acid, Venous 2.1 H* Calcium Calcium Adj for Albumin Total Bilirubin AST ALT Alkaline Phosphatase B-Natriuretic Peptide Total Protein Albumin Urine Color Yellow Urine Appearance Cloudy Urine pH 7.5 Ur Specific Brewster 1.015 Urine Protein Negative Urine Glucose (UA) Negative Urine Ketones Negative Urine Blood Negative Urine Nitrate Negative Urine Bilirubin Negative Urine Urobilinogen Normal Ur Leukocyte Esterase 100 H Urine RBC None seen Urine WBC 0-5 Ur Epithelial Cells None seen Urine Bacteria 1+ H Urine Culture Comments Culture to follow Laboratory Tests 07/30/17 07/30/17 21:30 21:30 Lactic Acid, Venous 2.1 H* Troponin I 4.340 H* - Vital Signs Patient's Vital Signs:: I have reviewed the patient's vital signs. - EKG EKG: atrial fibrillation, nonspecific ST T wave changes EKG read: Interp. by me EKG Comments: some ischemic changes probably due to rate and hypoxia. Doubt VA. EKG #2: sinus tach at 120. possible inferior and anterior septal VA, indeterminate age. - X-Ray X-Ray #1 X-Ray: chest Interpretation: Interp. by me X-ray Comments: moderate LLL infiltrate and small RLL infiltrate - Progress/Reassessment Progress:: Unchanged Progress Note-Subjective: 07/30/17 23:05 Spoke with Willie Solis PA-C at [facility] ED he agrees to accept pt transfer. Departure Clinical Impression: NSTEMI (non-ST elevated myocardial infarction) Pneumonia Qualifiers: Pneumonia type: due to unspecified organism Laterality: bilateral Lung location : lower lobe of lung Qualified Code(s): J18.9 - Pneumonia, unspecified organism - Departure Disposition: [facility] Condition: Fair Referrals: Jocelin Shaffer DO [Primary Care Provider] -
[2017-07-30] MEDS ORDERED: ACETAMINOPHEN 650 MG SUPP.RECT RC ONE (21:04)
[2017-07-30] MEDS ORDERED: DILTIAZEM HCL 5 MG/ML VIAL IV ONE ×2 (21:04→21:12)
[2017-07-30] MEDS ORDERED: ACETAMINOPHEN 650 MG SUPP.RECT ONE (21:24)
[2017-07-30 21:42] LABS: Hematocrit 37.7 % (37.0-47.0); Hemoglobin 11.6 gm/dL (12.5-16.0); Mean Cell Volume 90.6 fl (78-100); Mean Corpuscular Hemoglobin 27.9 pg (27-31); Mean Corpuscular Hgb Conc 30.8 g/dl (32-36); Platelet Count 322 K/mm3 (150-450); Red Blood Count 4.16 M/mm3 (4.2-5.4); White Blood Count 26.8 K/mm3 (4.0-10.5)
[2017-07-30 21:50] LABS: Total Cells Counted 100
[2017-07-30 21:52] LABS: Urine Bilirubin Negative (NEGATIVE); Urine Blood Negative /ul (NEGATIVE); Urine Ketone Negative (NEGATIVE); Urine Nitrite Negative (NEGATIVE); Urine Protein Negative (NEGATIVE); Urine Specific Gravity 1.015 SP.GR. (1.005-1.010); Urine Urobilinogen Normal (NORMAL); Urine pH 7.5 pH (5.0-7.0)
[2017-07-30 21:58] LABS: Albumin * 3.2 gm/dl (3.4-5.0); Anion Gap 10.9 mmol/L (6.8-13.8); Bilirubin, Total 0.3 mg/dL (0.0-1.1); Calcium * 8.7 mg/dL (7.9-10.9); Carbon Dioxide 31.1 mmol/L (24-32.6); Total Protein 8.1 gm/dL (6.2-8.2)
[2017-07-30 21:59] LABS: Urine Appearance Cloudy; Urine Bacteria 1+; Urine Color Yellow; Urine RBC None Seen /hpf (0-5); Urine WBC 0-5 /hpf (0-5)
[2017-07-30] MEDS ORDERED: HEPARIN SODIUM,PORCINE 5,000 UNITS/ML VIAL IV ONE (22:20)
[2017-07-30] MEDS ORDERED: LEVOFLOXACIN/D5W 750 MG/150 ML BAG IV ONE (22:20)
[2017-07-30 22:23] LABS: Band 6 % (0-2.0); Lymphocyte 5 % (20-51); Monocyte 3 % (0-9); Neutrophil 86 % (42-75)
[2017-07-30 22:25] LABS: Spherocyte 1+
[2017-07-30 22:26] LABS: Dohle Bodies 1+; Giant Platelets Trace; Ovalocytes 1+; Platelet Estimate Normal (NORMAL); RBC Morphology Normal (NORMAL); Toxic Granulation 1+
[2017-07-30] MEDS ORDERED: ASPIRIN 300 MG SUPP.RECT RC ONE ×2 (22:46)
[2017-07-30] MEDS ORDERED: HEPARIN SODIUM,PORCINE 5,000 UNITS/ML VIAL ONE (23:00)
[2017-07-30 23:06] VITALS: BP 107/66
== END 2017-07-30 23:15 | disposition short-term general hospital (02) ==
LOC: ER 20:45
PROC: 4A033R1 Measurement of Arterial Saturation, Peripheral, Percutaneous Approach (ICD-10-PCS; principal; 2017-07-30)
DX: I21.4 Non-ST elevation (NSTEMI) myocardial infarction (principal); J18.9 Pneumonia, unspecified organism; Z87.440 Personal history of urinary (tract) infections; R50.9 Fever, unspecified

== ENCOUNTER 2017-09-10 15:12 | Emergency (ER) | payer MEDICARE, BC, MEDICAID ==
[2017-09-10 16:10] LABS: Hemoglobin 9.4 gm/dL (12.5-16.0); Mean Cell Volume 93.1 fl (78-100); Mean Corpuscular Hemoglobin 28.2 pg (27-31); Mean Corpuscular Hgb Conc 30.3 g/dl (32-36); Mean Platelet Volume 9.9 fl (6.0-9.5); Neutrophil # 4.3 K/mm3 (1.3-6.0); Neutrophil % 57.3 % (42-75.0); Platelet Count 256 K/mm3 (150-450); Red Blood Count 3.33 M/mm3 (4.2-5.4); White Blood Count 7.5 K/mm3 (4.0-10.5)
--- NOTE | 2017-09-10 16:18 | ERNOTE ---
Trauma/Assault HPI - General Stated Complaint: FALL Time Seen by Provider: 09/10/17 15:16 Source: family Exam Limitations: no limitations - Immun/Allergies/Home Medications Immunizations: IMMUNIZATION HX Immunizations Up to Date Yes History of Influenza Vaccine Yes Hx Pneumococcal Vaccination Yes Allergies/Adverse Reactions: Allergies Penicillins Allergy (Severe, Verified 08/23/17 10:24) Anaphylaxis latex Allergy (Verified 08/23/17 10:24) Itching Sulfa (Sulfonamide Antibiotics) Allergy (Verified 08/23/17 10:24) Itching adhesive Adverse Reaction (Verified 08/23/17 10:24) Home Medications: HOME MEDICATIONS Calcium Carbonate [Tums] 500 mg PO TID 08/30/14 [Last Taken 08/23/17 07:00] Acetaminophen [Tylenol] 650 mg PO Q4H PRN 07/05/16 [Last Taken 08/23/17 06:30] Polyethylene Glycol 3350 [Miralax] 17 gm PO DAILY 07/05/16 [Last Taken 08/23/17 07:00] Arformoterol Tartrate [Brovana] 2 ml IH BID 04/26/17 [Last Taken 08/23/17 07:00] Tolterodine Tartrate [Detrol LA] 2 mg PO DAILY 04/26/17 [Last Taken 08/23/17 07: 00] Vit C/Vit E AC/Lut/Copper/Zinc [Preservision Lutein Softgel] 1 each PO DAILY [Last Taken 08/23/17 07:00] Cholecalciferol [Vitamin D] 1,000 unit PO DAILY capsule 05/01/17 [Last Taken 07:00] risperiDONE [Risperdal] 0.5 mg PO DAILY 06/25/17 [Last Taken 08/23/17 07:00] ALPRAZolam [Xanax] 0.5 mg PO TID 08/23/17 [Last Taken 08/23/17 08:00] Amiodarone HCl [Cordarone] 200 mg PO BID 08/23/17 [Last Taken 08/23/17 07:00] Aspirin 325 mg PO DAILY 08/23/17 [Last Taken 08/23/17 07:00] Atorvastatin Calcium [Lipitor] 40 mg PO HS 08/23/17 [Last Taken 08/22/17 20:00] Bisacodyl [Women's Laxative] 5 mg PO DAILY PRN 08/23/17 [Last Taken 08/08/17 08: 00] Budesonide [Pulmicort Respules] 2 ml IH BID 08/23/17 [Last Taken 08/23/17 07:00] Captopril 12.5 mg PO TID 08/23/17 [Last Taken 08/23/17 07:00] Ipratropium/Albuterol Sulfate [Iprat-Albut 0.5-3(2.5) mg/3 ml] 3 ml IH Q4H PRN 08/23/17 [Last Taken Unknown] Mag Hydrox/Aluminum Hyd/Simeth [Kro Antacid-Antigas Liquid] 30 ml PO QID PRN [Last Taken 08/11/17 13:00] Melatonin [Melatin] 3 mg PO 1500 08/23/17 [Last Taken 08/22/17 15:00] Metoprolol Tartrate [Lopressor] 25 mg PO BID 08/23/17 [Last Taken 08/23/17 07:00 ] Peg 400/Hypromellose/Glycerin [Artificial Tears Drops] 15 ml OP QID PRN [Last Taken Unknown] Saliva Substitute Combo No.9 [Biotene] 15 ml MM QID PRN 08/23/17 [Last Taken Unknown] Calamine 1 appl TP Q1H PRN #1 btl 08/24/17 [Last Taken Unknown] Ertapenem Sodium [Invanz] 1,000 mg IM DAILY #3 vial 08/24/17 [Last Taken Unknown ] Erythromycin Base [Erythromycin Ophthalmic Ointment] 1 appl EACHEYE BID #1 tube 08/24/17 [Last Taken Unknown] - History of Present Illness Narrative: Patient has dementia and is a resident in the care center. She had a STEMI about a month, was also diagnosed with CHF, pneumonia and sepsis at that time. She had another admission for CHF on 08/23 and a fall, has not been walking independantly for at least two week. Today she was propelling herself in the wheelchair, caught her toes on the floor and fell forward out of wheel chair. The fall was witnessed, no LOC reported, patient complaints of nose pain, limited history due to pain. Location Occurred: Reports: other Pain Location: Reports: face Method of Injury: Reports: fall Loss of Consciousness: Reports: no loss of consciousness Review of Systems - Narrative Narrative: unable to obtain details due to dementia - Patient's Past Medical History Patient History - Medical: Anemia, Alzheimer's Disease, Dementia, GERD, UTI'S Patient History - Cardiac/Respiratory: CHF, COPD, CVA/Stroke, Hyperlipidemia, Myocardial Infarction, Pneumonia, Home O2 Use - 2 liters Patient History - Cancer: No Hx of Cancer Patient History - Surgical Procedures: Back Surgery, Cholecystectomy, Colonoscopy, EGD, Hysterectomy, T & A, Orthopedic Patient History - Other: None - Family History Mother Family History - Medical: Family History - Cardiac/Respiratory: CVA/Stroke, Hypertension Family History - Cancer: No pertinent family hx Father Family History - Medical: , History Unknown, Bipolar Family History - Cardiac/Respiratory: No pertinent hx Family History - Cancer: History Unknown - Social History Living Situations: home Abuse History: No History of abuse Psych History: Psychiatric Hx - Immunizations Immunizations Up to Date: Yes Hx Pneumococcal Vaccination: Yes History of Influenza Vaccine: Yes Detailed Trauma Exam Best Eye Response (Troy): (4) open spontaneously Best Verbal Response (Michael): (4) confused conversation Best Motor Response (Michael): (6) obeys commands [place] Total: 14 General Appearance: Present: alert Head Injury: Present: ecchymosis - nose and left eyebrow, no deformity, tenderness - nose. Absent: deformity, lacerations Neurological Exam: Present: alert, no motor/sensory deficits - limited exam due to dementia Neck Exam: Present: non-tender, full range of motion, normal alignment Nexus Clearance: Present: altered mental status Eye Exam: Normal inspection: bilateral ENT Exam: Present: nml ext. inspection - except echymosis on nose and left eye brow, no dental injury, no oral injury, airway nml, clotted nasal blood. Absent : dental injury, malocclusion Chest/Respiratory Exam: Present: nml inspection, wheezes, rales, other - increased respiratory rate. Absent: ecchymosis, rib tenderness Cardiovascular Exam: Present: regular rate, rhythm, no murmur Back Exam: Present: normal inspection, no CVA tenderness, no vertebral tenderness Abdominal Exam: Present: soft, non-tender RU Extremity: Present: normal inspection, normal range of motion, non-tender, no edema [place] Extremity: Present: normal range of motion, normal except - - burst blood vessel over index finger, no bony tenderness RL Extremity: Present: normal range of motion, non-tender, normal except - - leg edema +3, skin rash LL Extremity: Present: normal range of motion, normal except - - leg edema and skin rash, small superficial abrasion and small area of echymosis over patella - C-Spine cleared by: Neg C-spine CT & exam - T, L-Spine cleared by: Neg hx and exam - Long Board: Back visualized ED Progress - Results and Orders Patient's Lab Results:: I have reviewed the patient's lab results. - Vital Signs Patient's Vital Signs:: I have reviewed the patient's vital signs. Vital Signs: Vital Signs 09/10/17 15:18 Temperature 36.9 C Pulse Rate 81 Respiratory 16 Rate Blood Pressure 157/59 O2 Sat by Pulse 83 L Oximetry - X-Ray X-Ray #1 X-Ray: knee - no acute Interpretation: Reviewed by me X-Ray #2 X-Ray: chest - stable cardiomegalie and venous congestion Interpretation: Reviewed by me - CT/Ultrasound CT/Ultrasound Narrative: CT head and c-spine: no acute changes - Progress/Reassessment Chief Complaint: Fall Progress Note-Subjective: 09/10/17 17:07 discussed test results with daughter, will take patient back to care center. patient comfortable Departure Clinical Impression: Alzheimer's dementia Qualifiers: Alzheimer's disease onset: unspecified onset Dementia behavioral disturbance: without behavioral disturbance Qualified Code(s): G30.9 - Alzheimer's disease, unspecified; F02.80 - Dementia in other diseases classified elsewhere without behavioral disturbance; F02.80 - Dementia in other diseases classified elsewhere without behavioral disturbance; F02.80 - Dementia in other diseases classified elsewhere without behavioral disturbance Fall Qualifiers: Encounter type: initial encounter Qualified Code(s): W19.XXXA - Unspecified fall, initial encounter Contusion of face Qualifiers: Encounter type: initial encounter Qualified Code(s): S00.83XA - Contusion of other part of head, initial encounter - Departure Disposition: [facility] Condition: Stable Referrals: Jocelin Shaffer DO [Primary Care Provider] - Critical Care Time - Critical Care Critical Time Spent:: No
[2017-09-10 16:35] LABS: Anion Gap 4.2 mmol/L (6.8-13.8); BUN/Creatinine Ratio 18.1 (9.0-21.6); Bilirubin, Total 0.2 mg/dL (0.0-1.1); Ca. Corrected For Albumin 9.4 mg/dL (8.4-10.2); Calcium * 8.9 mg/dL (7.9-10.9); Carbon Dioxide 40.1 mmol/L (24-32.6); Potassium 4.3 mmol/L (3.4-4.6); Total Protein 7.4 gm/dL (6.2-8.2)
[2017-09-10 17:07] VITALS: BP 101/62
== END 2017-09-10 17:20 ==
LOC: ER 15:12
DX: G30.9 Alzheimer's disease, unspecified (principal); F02.80 Dementia in other diseases classified elsewhere, unspecified severity, without behavioral disturbance, psychotic disturbance, mood disturbance, and anxiety; S00.83XA Contusion of other part of head, initial encounter; W05.0XXA Fall from non-moving wheelchair, initial encounter; Y93.9 Activity, unspecified; Y92.129 Unspecified place in nursing home as the place of occurrence of the external cause; M17.12 Unilateral primary osteoarthritis, left knee

== ENCOUNTER 2017-09-30 14:55 | Observation (INO) | payer MEDICARE, BC, MEDICAID ==
[2017-09-30 15:52] LABS: Hematocrit 29.4 % (37.0-47.0); Hemoglobin 8.8 gm/dL (12.5-16.0); Mean Corpuscular Hemoglobin 27.8 pg (27-31); Mean Corpuscular Hgb Conc 29.9 g/dl (32-36); Neutrophil # 3.7 K/mm3 (1.3-6.0); Neutrophil % 54.6 % (42-75.0); Platelet Count 223 K/mm3 (150-450); Red Blood Count 3.16 M/mm3 (4.2-5.4); Red Cell Distribution Width 14.6 % (11.5-14.0); White Blood Count 6.8 K/mm3 (4.0-10.5)
[2017-09-30 16:09] LABS: ALT 12 U/L (19-67); AST 17 U/L (0-48); Albumin * 2.5 gm/dl (3.4-5.0); Alkaline Phosphatase * 93 U/L (50-170); BUN/Creatinine Ratio 13.8 (9.0-21.6); Bilirubin, Total 0.3 mg/dL (0.0-1.1); Blood Urea Nitrogen 11 mg/dL (3-23); Ca. Corrected For Albumin 9.2 mg/dL (8.4-10.2); Calcium * 8.3 mg/dL (7.9-10.9); Carbon Dioxide 42.8 mmol/L (24-32.6); Chloride 97 mmol/L (97-106); Glucose * 84 mg/dL (70-110); Potassium 3.8 mmol/L (3.4-4.6); Sodium 135 mmol/L (132-142); Total Protein 6.8 gm/dL (6.2-8.2); Troponin I Less than 0.017 ng/ml (0.00-0.10)
[2017-09-30 16:39] LABS: Urine Appearance Clear; Urine Bacteria None Seen; Urine Bilirubin Negative (NEGATIVE); Urine Blood Negative /ul (NEGATIVE); Urine Color Yellow; Urine Ketone Negative (NEGATIVE); Urine Nitrite Negative (NEGATIVE); Urine Protein Negative (NEGATIVE); Urine RBC None Seen /hpf (0-5); Urine Urobilinogen Normal (NORMAL); Urine WBC 0-5 /hpf (0-5); Urine pH 7.5 pH (5.0-7.0)
[2017-09-30 16:40] LABS: Urine Specific Gravity 1.015 SP.GR. (1.005-1.010)
[2017-09-30] MEDS ORDERED: FUROSEMIDE 10 MG/ML VIAL IV ONE (17:37)
[2017-09-30] MEDS ORDERED: LEVOFLOXACIN IN DEXTROSE 5 % 500 MG/100 ML BAG IV SCH (17:45)
[2017-09-30] MEDS ORDERED: FUROSEMIDE 10 MG/ML VIAL ONE (18:25)
--- NOTE | 2017-09-30 19:34 | ERNOTE ---
Neuro HPI ER Record Date of Service: 09/30/17 Presenting Symptoms: other - altered mental status, trouble breathing Time Seen by Provider: 09/30/17 15:08 Source: patient, family Exam Limitations: dementia Immunizations: IMMUNIZATION HX Immunizations Up to Date Yes History of Influenza Vaccine Yes Hx Pneumococcal Vaccination Yes Allergies/Adverse Reactions: Allergies Allergy/AdvReac Type Severity Reaction Status Date / Time Penicillins Allergy Severe Anaphylaxis Verified 08/23/17 10:24 latex Allergy Itching Verified 08/23/17 10:24 Sulfa (Sulfonamide Allergy Itching Verified 08/23/17 10:24 Antibiotics) adhesive AdvReac Verified 08/23/17 10:24 Home Medications: HOME MEDICATIONS Alprazolam [Xanax Xr] 0.5 mg PO TID 09/30/17 [Last Taken Unknown] Amiodarone HCl [Cordarone] 200 mg PO DAILY 09/30/17 [Last Taken Unknown] Arformoterol Tartrate [Brovana] 15 mcg IH BID 09/30/17 [Last Taken Unknown] Aspirin 325 mg PO DAILY 09/30/17 [Last Taken Unknown] Atorvastatin Calcium 40 mg PO DAILY 09/30/17 [Last Taken Unknown] Budesonide [Pulmicort Respules] 2 ml IH BID 09/30/17 [Last Taken Unknown] Calcium Carbonate [Calcium Antacid] 500 mg PO TID 09/30/17 [Last Taken Unknown] Captopril 12.5 mg PO TID 09/30/17 [Last Taken Unknown] Cholecalciferol (Vitamin D3) [Vitamin D3] 1,000 unit PO DAILY 09/30/17 [Last Taken Unknown] Ferrous Sulfate 325 mg PO BID 09/30/17 [Last Taken Unknown] Furosemide [Lasix] 40 mg PO DAILY 09/30/17 [Last Taken Unknown] Melatonin/Pyridoxine HCl (B6) [Melatonin 3 mg Tablet] 3 mg PO HS 09/30/17 [Last Taken Unknown] Metoprolol Tartrate [Lopressor] 25 mg PO BID 09/30/17 [Last Taken Unknown] Tolterodine Tartrate [Detrol LA] 2 mg PO DAILY 09/30/17 [Last Taken Unknown] Vit A/Vit C/Vit E/Zinc/Copper [Preservision Areds Softgel] 1 each PO DAILY 09/30 [Last Taken Unknown] risperiDONE [Risperdal] 0.5 mg PO DAILY 09/30/17 [Last Taken Unknown] - History of Present Illness Narrative: Patient was noted to not be responding normally. She lives at the [facility]. She was noted to have pinpoint pupils and was not responding. She now has recovered from that. family states she is more SOB. She is difficult to get a Hx from. She denies pain. Family Does not notice any new weakness. Onset: gone now - Character of Deficits New weakness: Present: general (diffuse) Baseline Gait: Present: other - wheelchair Associated Symptoms: Reports: altered mental status, decreased responsiveness. Denies: fever/chills, headache Prior Treament: Denies: recently hospitalized Review of Systems - Narrative Narrative: Unobtainable from the patient - dementia - Patient's Past Medical History Patient History - Medical: Anemia, Alzheimer's Disease, Dementia, GERD, UTI'S Patient History - Cardiac/Respiratory: CHF, COPD, CVA/Stroke, Hyperlipidemia, Myocardial Infarction, Pneumonia, Home O2 Use Patient History - Cancer: No Hx of Cancer Patient History - Surgical Procedures: No surgical history Patient History - Other: None LMP (females 10-50): this week - Family History Mother Family History - Medical: Family History - Cardiac/Respiratory: CVA/Stroke, Hypertension Family History - Cancer: No pertinent family hx Father Family History - Medical: , History Unknown, Bipolar Family History - Cardiac/Respiratory: No pertinent hx Family History - Cancer: History Unknown - Social History Living Situations: [facility] Abuse History: No History of abuse Psych History: Psychiatric Hx Smoking Status: Former smoker Have you smoked in the past 12 months: No Do you dip or chew tobacco: No Alcohol Use: none Drug Use: none - Immunizations Immunizations Up to Date: Yes Hx Pneumococcal Vaccination: Yes History of Influenza Vaccine: Yes Physical Exam - Physical Exam General Appearance: Present: alert, other - no acute distress on her home O2 Head Exam: Present: normal inspection, no evidence of injury Eye Exam: Normal inspection: bilateral, PERRL: bilateral Ears, Nose, Throat: Absent: pharyngeal erythema Neck: Present: normal inspection Respiratory: Present: no accessory muscle use, crackles Cardiovascular/Chest: Present: regular rate, rhythm, normal peripheral pulses Gastrointestinal/Abdominal: Present: normal bowel sounds, nontender, soft Back Exam: Absent: CVA tenderness (R), CVA tenderness (L) Extremity Exam: Present: other - no clear calf tenderness Neurological Exam: Present: alert, other - generalized weakness noted, no clear acute focal motor deficit or evidence of acute stroke clinically. Difficult exam Skin Exam: Present: normal color, warm/dry ED Progress - Results and Orders Patient's Lab Results:: I have reviewed the patient's lab results. - Vital Signs Patient's Vital Signs:: I have reviewed the patient's vital signs. Vital Signs: Vital Signs 09/30/17 09/30/17 09/30/17 15:02 15:07 15:55 Temperature 36.3 C L 36.3 C L Pulse Rate 60 60 65 Respiratory 19 19 21 H Rate Blood Pressure 178/49 178/49 135/84 O2 Sat by Pulse 92 92 96 Oximetry 09/30/17 09/30/17 17:26 18:31 Temperature Pulse Rate 70 75 Respiratory 18 Rate Blood Pressure 148/64 157/50 O2 Sat by Pulse 97 Oximetry - EKG EKG read: Interp. by me EKG Comments: Sins rate 59 PAC. Non-specific ST/T wave chnges, no STEMI - X-Ray X-Ray #1 X-Ray: chest Interpretation: Interp. by me X-ray Comments: I reviewed official radiology report - Progress/Reassessment Chief Complaint: Altered Mental Status Progress Note-Subjective: 09/30/17 19:33 IV lasix and IV ABx given. Given her overall health I spoke with hospitalist who will admit the patient. Family agreeable. Departure Clinical Impression: CHF (congestive heart failure), Pneumonia, Unresponsive episode - Departure Disposition: [facility] Condition: Fair
--- NOTE | 2017-09-30 21:52 | HP ---
Chief Complaint - Chief Complaint Date of Service: 09/30/17 Time of Service: 20:00 Chief Complaint: shortness of breath, unresponsiveness, confusion History of Present Illness: 76-year-old white female, resident of the [facility], patient of Dr. Jocelin Shaffer, with previous medical history of dementia, dysphagia, hyperlipidemia, pressure ulcer tardive dyskinesia, depression,anemia, recurrent aspirate pneumonia, [place], Afib, septic cardiogenic shock, ischemic cardiomyopathy 20-25%, is been adm from ER with reports of shortness of breath, confusion and unresponsiveness. Unable to obtain information from patient due to medical condition. Information obtained from daughter at the bedside and EMR. Per daughter pt was observed to be unresponsive with pinpoint pupils and hard to arouse while at the skilled nursing. This had happen 3 weeks ago, she was brought to the ER s/s self resolved and then later discharge back to the skilled nursing. Pt been having frequent falls and resulting in some facial bruising. 2 months ago she was hospitalized at [facility] for [place] and since then had difficulty walking post hospitalization. In ER CT head no acute intra-cranial abnormality. CXR: Vascular congestion, bilateral pleural effusion. Right worse than left and basilar consolidation identified. influenza A & B negative. Hgb/ Hct 8.8/29.4 BNP 1011 On last adm Sep 10, hgb/Hct 9.0/29.4 BNP 1057 all at her baseline. She was given lasix 40mg IVP x1 and levaquin. plan of care discussed with daughter she verbalized understanding and agrees. - Patient's Past Medical History Patient History - Medical: Anemia, Alzheimer's Disease, Dementia, GERD, UTI'S Patient History - Cardiac/Respiratory: Asthma, CHF, COPD, CVA/Stroke, Hyperlipidemia, Myocardial Infarction, Pneumonia, Home O2 Use Patient History - Cancer: No Hx of Cancer Patient History - Surgical Procedures: No surgical history, Back Surgery, Cholecystectomy, Colonoscopy, EGD, T & A Patient History - Other: None LMP (females 10-50): this week - Family History Mother Family History - Medical: Family History - Cardiac/Respiratory: CVA/Stroke, Hypertension Family History - Cancer: No pertinent family hx Father Family History - Medical: , History Unknown, Bipolar Family History - Cardiac/Respiratory: No pertinent hx Family History - Cancer: History Unknown - Social History Living Situations: skilled nursing Abuse History: No History of abuse Psych History: Psychiatric Hx Smoking Status: Former smoker Have you smoked in the past 12 months: No Do you dip or chew tobacco: No Smoking Stop Date: 09/30/03 Patient requests Smoking Cessation Consult: No Initiate information on Smoking Cessation: No Alcohol Use: none Drug Use: none - Immunizations Immunizations Up to Date: Yes Hx Pneumococcal Vaccination: Yes History of Influenza Vaccine: Yes Review Of Systems (GEN) - Review of Systems Generalized/Overall Review: Present: Weakness Respiratory: Present: Cough, Shortness of Breath Cardiac: Present: No Symptoms Reported Abdominal: Present: No Symptoms Reported Genitourinary: Present: Incontinent, Retention Musculoskeletal: Present: No Symptoms Reported Neurological: Present: Weakness Skin: Present: Bruising Endocrine: Present: No Symptoms Reported Immunizations: IMMUNIZATION HX Immunizations Up to Date Yes History of Influenza Vaccine Yes Hx Pneumococcal Vaccination Yes Allergies/Adverse Reactions: Allergies Allergy/AdvReac Type Severity Reaction Status Date / Time Penicillins Allergy Severe Anaphylaxis Verified 08/23/17 10:24 latex Allergy Itching Verified 08/23/17 10:24 Sulfa (Sulfonamide Allergy Itching Verified 08/23/17 10:24 Antibiotics) adhesive AdvReac Verified 08/23/17 10:24 Home Medications: HOME MEDICATIONS ALPRAZolam [Xanax] 0.5 mg PO TID 09/30/17 [Last Taken 09/30/17 12:00] Amiodarone HCl [Cordarone] 200 mg PO DAILY 09/30/17 [Last Taken 09/30/17 07:00] Arformoterol Tartrate [Brovana] 15 mcg IH BID 09/30/17 [Last Taken Unknown] Arformoterol Tartrate [Brovana] 15 mcg IH BID 09/30/17 [Last Taken 09/30/17 07: 00] Aspirin 325 mg PO DAILY 09/30/17 [Last Taken 09/30/17 07:00] Atorvastatin Calcium 40 mg PO DAILY 09/30/17 [Last Taken 09/29/17 21:00] Budesonide [Pulmicort Respules] 2 ml IH BID 09/30/17 [Last Taken 09/30/17 07:00] Calcium Carbonate [Calcium Antacid] 500 mg PO TID 09/30/17 [Last Taken 09/30/17 11:00] Captopril 12.5 mg PO TID 09/30/17 [Last Taken 09/30/17 11:00] Cholecalciferol (Vitamin D3) [Vitamin D3] 1,000 unit PO DAILY 09/30/17 [Last Taken 09/30/17 07:00] Ferrous Sulfate 325 mg PO BID 09/30/17 [Last Taken 09/30/17 07:00] Furosemide [Lasix] 40 mg PO DAILY 09/30/17 [Last Taken 09/30/17 08:00] Melatonin/Pyridoxine HCl (B6) [Melatonin 3 mg Tablet] 3 mg PO HS 09/30/17 [Last Taken 09/30/17 15:00] Metoprolol Tartrate [Lopressor] 25 mg PO BID 09/30/17 [Last Taken 09/30/17 07:00 ] Tolterodine Tartrate [Detrol LA] 2 mg PO DAILY 09/30/17 [Last Taken 09/30/17 07: 00] Vit A/Vit C/Vit E/Zinc/Copper [Preservision Areds Softgel] 1 each PO DAILY 09/30 [Last Taken 09/30/17 07:00] risperiDONE [Risperdal] 0.5 mg PO DAILY 09/30/17 [Last Taken 09/30/17 07:00] Exam - Exam Vital Signs: Vital Signs - Last Taken Temp 36.8 C 09/30/17 19:36 Pulse 79 09/30/17 19:43 Resp 23 H 09/30/17 19:43 BP 155/61 09/30/17 19:43 Pulse Ox 97 09/30/17 19:43 Constitutional: Present: Mild distress, Elderly, Looks Older than stated age ENT Exam: Present: hearing grossly normal Eye Exam: bilateral eye: normal inspection Neck: Present: non-tender, full range of motion Back Exam: Present: normal inspection Breasts: Present: Exam deferred Respiratory: Present: chest non-tender, no accessory muscle use, crackles, rhonchi Cardiovascular/Chest: Present: no chest tenderness, no edema, no JVD, edema Peripheral Pulses: dorsalis-pedis (R): 2+, dorsalis-pedis (L): 2+ Abdomen: Present: Normal bowel sounds, soft, nontender, nondistended Extremity: Present: normal range of motion, non-tender, normal inspection, no calf tenderness, lower extremity edema, slow capillary refill Skin Exam: Present: normal color, other - facial bruising Lymphatic: Present: no adenopathy Neurologic: Present: abnormal gait, aphasia, motor weakness, depressed affect, disoriented x 3 Appearance: Present: disheveled, impaired insight, impaired recent memory, impaired remote memory Eye contact: Present: compulsive, uncooperative Thoughts: Present: incoherent Diagnostic Studies: Laboratory Results WBC 6.8 K/mm3 (4.0-10.5) 09/30/17 15:45 RBC 3.16 M/mm3 (4.2-5.4) L 09/30/17 15:45 Hgb 8.8 gm/dL (12.5-16.0) L 09/30/17 15:45 Hct 29.4 % (37.0-47.0) L 09/30/17 15:45 MCV 93.0 fl (78-100) 09/30/17 15:45 MCH 27.8 pg (27-31) 09/30/17 15:45 MCHC 29.9 g/dl (32-36) L 09/30/17 15:45 RDW 14.6 % (11.5-14.0) H 09/30/17 15:45 Plt Count 223 K/mm3 (150-450) 09/30/17 15:45 MPV 10.0 fl (6.0-9.5) H 09/30/17 15:45 Immature Gran % (Auto) 0.30 % (0.001-0.429) 09/30/17 15:45 Immature Gran # (Auto) 0.02 K/mm3 (0.000-0.0310) 09/30/17 15:45 Neutrophils % 54.6 % (42-75.0) 09/30/17 15:45 Lymphocytes % 21.4 % (20-51) 09/30/17 15:45 Monocytes % 11.9 % (0.0-9) H 09/30/17 15:45 Eosinophils % 11.2 % (0.0-3.0) H 09/30/17 15:45 Basophils % 0.6 % (0.0-1.0) 09/30/17 15:45 Nucleated RBC % 0.0 k/mm3 (0-1) 09/30/17 15:45 Neutrophils # 3.7 K/mm3 (1.3-6.0) 09/30/17 15:45 Lymphocytes # 1.5 k/mm3 (1.5-3.5) 09/30/17 15:45 Monocytes # 0.8 k/mm3 (0.0-1.0) 09/30/17 15:45 Eosinophils # 0.8 k/mm3 (0.0-0.7) H 09/30/17 15:45 Absolute Basophils 0.0 k/mm3 (0.0-0.1) 09/30/17 15:45 Sodium 135 mmol/L (132-142) 09/30/17 15:45 Plasma Sodium 135 mmol/L (130-142) 09/30/17 15:45 Potassium 3.8 mmol/L (3.4-4.6) 09/30/17 15:45 Chloride 97 mmol/L (97-106) 09/30/17 15:45 Carbon Dioxide 42.8 mmol/L (24-32.6) H 09/30/17 15:45 Anion Gap Less than 1.0 mmol/L (6.8-13.8) L 09/30/17 15:45 BUN 11 mg/dL (3-23) 09/30/17 15:45 Creatinine 0.80 mg/dL (0.4-1.4) 09/30/17 15:45 Est GFR (Non-Af Amer) 74 mL/min (60-130) 09/30/17 15:45 BUN/Creatinine Ratio 13.8 (9.0-21.6) 09/30/17 15:45 Random Glucose 84 mg/dL (70-110) 09/30/17 15:45 Lactic Acid, Venous 1.0 mmol/L (0.4-1.9) 09/30/17 15:45 Calcium 8.3 mg/dL (7.9-10.9) 09/30/17 15:45 Calcium Adj for Albumin 9.2 mg/dL (8.4-10.2) 09/30/17 15:45 Total Bilirubin 0.3 mg/dL (0.0-1.1) 09/30/17 15:45 AST 17 U/L (0-48) 09/30/17 15:45 ALT 12 U/L (19-67) L 09/30/17 15:45 Alkaline Phosphatase 93 U/L (50-170) 09/30/17 15:45 Troponin I Less than 0.017 ng/ml (0.00-0.10) 09/30/17 15:45 B-Natriuretic Peptide 1011 pg/mL (5-550) H 09/30/17 15:45 Total Protein 6.8 gm/dL (6.2-8.2) 09/30/17 15:45 Albumin 2.5 gm/dl (3.4-5.0) L 09/30/17 15:45 Urine Color Yellow 09/30/17 16:15 Urine Appearance Clear 09/30/17 16:15 Urine pH 7.5 pH (5.0-7.0) 09/30/17 16:15 Ur Specific [place] 1.015 SP.GR. (1.005-1.010) 09/30/17 16:15 Urine Protein Negative mg/dL (NEGATIVE) 09/30/17 16:15 Urine Glucose (UA) Negative mg/dL (NEGATIVE) 09/30/17 16:15 Urine Ketones Negative mg/dL (NEGATIVE) 09/30/17 16:15 Urine Blood Negative /ul (NEGATIVE) 09/30/17 16:15 Urine Nitrate Negative (NEGATIVE) 09/30/17 16:15 Urine Bilirubin Negative mg/dl (NEGATIVE) 09/30/17 16:15 Urine Urobilinogen Normal EU/dl (NORMAL) 09/30/17 16:15 Ur Leukocyte Esterase Negative /ul (NEGATIVE) 09/30/17 16:15 Urine RBC None seen /hpf (0-5) 09/30/17 16:15 Urine WBC 0-5 /hpf (0-5) 09/30/17 16:15 Ur Epithelial Cells 0-5 /hpf (0-5) 09/30/17 16:15 Urine Bacteria None seen (NONE) 09/30/17 16:15 Urine Culture Comments No culture indicated 09/30/17 16:15 Influenza Type A Ag Negative (NEGATIVE) 09/30/17 16:01 Influenza Type B Ag Negative (NEGATIVE) 09/30/17 16:01 CT head no acute intra-cranial process CXR: central vascular congestion,bilateral pleural effusion. Right worsen than left. Basilar consolidation identified. Assessment/Plan - Narrative Narrative: CHF exacerbation CXR: Vascular congestion, bilateral pleural effusion. Right worse than left and basilar consolidation identified. Lasix 40mg x1 given in ER, continue with Lasix 40mg daily Strict I/O and weight pt daily. Low sodium diet 09/01/14 Echo: left ventricular ER 71%, pulmonary hypertension. 2D-echo pending Pneumonia 09/10/17 CXR: Right lower lobe pneumonia 09/30/17 CXR:Vascular congestion, bilateral pleural effusion. Right worse than left and basilar consolidation identified. Influenza A & B negative. Pt Was recently treated for pneumonia and completed antbx regimen. Encourage deep breathing and use of cornet On adm Temp 36.8, WBC 6.8. Levaquin was given in ER, monitor CBC in am Anemia- likely due to hemodilution from CHF On adm Hgb/ Hct 8.8/29.4 On last adm Sep 10, hgb/Hct 9.0/29.4 which is at pt baseline Continue with oral iron Monitor CBC in am COPD Pt uses home oxygen, supplement while hospitalized Continue with neb treatments and home medications Code status: Full GI ppx: VTE ppx: Ambulate and SCD, no anticoag pt at increased risk for falling Time 45 minutes and case discussed with Dr Dias - Assessment/Plan (1) CHF (congestive heart failure) Problem: Acute (2) Pneumonia Problem: Acute Qualifiers: (3) Unresponsive episode Problem: Acute (4) Anemia Problem: Chronic (5) Contusion of face Problem: Chronic (6) Dementia, old age Problem: Chronic (7) Generalized weakness Problem: Chronic (8) NSTEMI (non-ST elevated myocardial infarction) Problem: Chronic (9) COPD Problem: Chronic (10) CVA (cerebral vascular accident) Problem: Chronic Qualifiers: (11) Dementia Problem: Chronic (12) Diabetes mellitus type 2 in nonobese Problem: Chronic (13) Dysphagia Problem: Chronic (14) GERD (gastroesophageal reflux disease) Problem: Chronic (15) Swallowing dysfunction Problem: Chronic
[2017-09-30] MEDS ORDERED: BUDESONIDE 0.5 MG/2 ML VIAL.NEB IH SCH (22:30)
[2017-09-30] MEDS ORDERED: ATORVASTATIN CALCIUM 40 MG TABLET PO SCH (23:30)
[2017-09-30] MEDS: FERROUS SULFATE 325 MG TABLET PO SCH (23:53)
[2017-09-30] MEDS: CALCIUM CARBONATE 500 MG TAB.CHEW PO SCH (23:53)
[2017-09-30] MEDS: ALPRAZolam 0.5 MG TABLET PO SCH (23:53)
[2017-09-30] MEDS: METOPROLOL TARTRATE 25 MG TABLET PO SCH (23:54)
[2017-09-30] MEDS: CAPTOPRIL 25 MG TABLET PO SCH (23:56)
[2017-10-01] MEDS ORDERED: BUDESONIDE 0.5 MG/2 ML VIAL.NEB IH ONE (00:13)
[2017-10-01 05:45] LABS: Hematocrit 29.1 % (37.0-47.0); Hemoglobin 8.9 gm/dL (12.5-16.0); Mean Cell Volume 92.1 fl (78-100); Mean Corpuscular Hemoglobin 28.2 pg (27-31); Mean Corpuscular Hgb Conc 30.6 g/dl (32-36); Mean Platelet Volume 10.4 fl (6.0-9.5); Neutrophil # 8.8 K/mm3 (1.3-6.0); Neutrophil % 71.9 % (42-75.0); Platelet Count 258 K/mm3 (150-450); Red Blood Count 3.16 M/mm3 (4.2-5.4); Red Cell Distribution Width 14.5 % (11.5-14.0); White Blood Count 12.3 K/mm3 (4.0-10.5)
[2017-10-01] MEDS ORDERED: BUDESONIDE 0.5 MG/2 ML VIAL.NEB IH SCH (07:00)
[2017-10-01] MEDS ORDERED: FORMOTEROL FUMARATE 20 MCG/2 ML VIAL IH SCH (07:00)
[2017-10-01 07:25] VITALS: BP 143/56
[2017-10-01] MEDS ORDERED: risperiDONE 0.25 MG TABLET PO SCH (09:00)
[2017-10-01] MEDS ORDERED: ASPIRIN 325 MG TABLET.DR PO SCH (09:00)
[2017-10-01] MEDS ORDERED: TOLTERODINE TARTRATE 2 MG CAPSULE PO SCH (09:00)
[2017-10-01] MEDS ORDERED: FUROSEMIDE 10 MG/ML VIAL IV SCH (09:00)
[2017-10-01] MEDS ORDERED: BETA-CAROTENE(A) W-C , E/MIN 1 TAB TABLET PO SCH (09:00)
[2017-10-01] MEDS ORDERED: AMIODARONE HCL 200 MG TABLET PO SCH (09:00)
[2017-10-01] MEDS ORDERED: CHOLECALCIFEROL 1,000 UNIT CAPSULE PO SCH (09:00)
[2017-10-01] MEDS: CAPTOPRIL 25 MG TABLET PO SCH (09:19)
[2017-10-01] MEDS: CALCIUM CARBONATE 500 MG TAB.CHEW PO SCH (09:20)
[2017-10-01] MEDS: FERROUS SULFATE 325 MG TABLET PO SCH (09:20)
[2017-10-01] MEDS: METOPROLOL TARTRATE 25 MG TABLET PO SCH (09:20)
[2017-10-01] MEDS: ALPRAZolam 0.5 MG TABLET PO SCH (09:27)
--- NOTE | 2017-10-01 12:31 | DS ---
(1) HFrEF (heart failure with reduced ejection fraction) Problem: Acute Qualifiers: Heart failure chronicity: acute on chronic Qualified Code(s): I50.23 - Acute on chronic systolic (congestive) heart failure (2) Ischemic cardiomyopathy Problem: Chronic Description of Stay: ADMISSION DATE: 09/30/2017 DISCHARGE DATE: 10/01/2017 ADMISSION HPI by ESAU Morales: 76-year-old white female, resident of the [facility], patient of Dr. Jocelin Shaffer, with previous medical history of dementia, dysphagia, hyperlipidemia, pressure ulcer tardive dyskinesia, depression, anemia, recurrent aspirate pneumonia, [place], Afib, septic cardiogenic shock, ischemic cardiomyopathy 20-25%, is been adm from ER with reports of shortness of breath, confusion and unresponsiveness. Unable to obtain information from patient due to medical condition. Information obtained from daughter at the bedside and EMR. Per daughter pt was observed to be unresponsive with pinpoint pupils and hard to arouse while at the [facility]. This had happen 3 weeks ago, she was brought to the ER s/s self resolved and then later discharge back to the [facility]. Pt been having frequent falls and resulting in some facial bruising. 2 months ago she was hospitalized at [facility] for [place] and since then had difficulty walking post hospitalization. In ER CT head no acute intra-cranial abnormality. CXR: Vascular congestion, bilateral pleural effusion. Right worse than left and basilar consolidation identified. influenza A & B negative. Hgb/ Hct 8.8/29.4 BNP 1011 On last adm Sep 10, hgb/Hct 9.0/29.4 BNP 1057 all at her baseline. She was given lasix 40mg IVP x1 and levaquin. plan of care discussed with daughter she verbalized understanding and agrees. HOSPITAL COURSE: The patient was admitted to hospital with acute decompensation of systolic congestive heart failure. There was also concern for possible pneumonia and she was started on IV Levaquin. Procalcitonin unremarkable. Chest x-ray appears most consistent with acutely decompensated heart failure with bibasilar atelectasis. I am not convinced that the patient truly has pneumonia and thus her antibiotics were discontinued prior to discharge. The patient does have 1 out of 2 blood cultures growing gram-positive cocci in clusters and this likely represents contamination but I will continue to follow her blood cultures until the final result is available. We will continue patient on her same dose of Lasix 40 mg daily which was recently increased on 09/12/2017 by her labor supervisor , Dr. Iglesias. We will start spironolactone daily with plans to recheck a BMP in 3 days. An echocardiogram was completed during her admission but results were pending at the time of discharge. The patient did have a slight bump in her white count the morning after admission and her white count was normal on admission and thus it is likely that the bump is reactive in nature but I will plan to recheck a CBC in 3 days. The patient was discharged back to [facility] in stable condition. She will follow-up with me in approximately 1-2 weeks if necessary. She should also keep her 1 month follow-up with Dr. Iglesias. FOLLOW-UP APPOINTMENTS: -PCP, Dr. Shaffer, within 1-2 weeks if necessary -Check CBC and BMP on , 10/04/2017 NEW OR CHANGED MEDICATIONS: Spironolactone 25mg PO daily DISCONTINUED MEDICATIONS: None RADIOLOGY REPORTS: Single view chest x-ray on 09/30/2017: Ongoing cardiomegaly. Central vascular congestion. Bilateral pleural effusions right worse than left. Bibasilar consolidation identified. No pneumothorax. Overall impression: Correlate for CHF/fluid overload. Superimposed pneumonia is not excluded. Head CT without contrast on 09/30/2017: No acute intracranial process detected. Procedures Performed: none Results and Findings: Laboratory Tests 09/30/17 09/30/17 10/01/17 15:45 15:45 05:15 Potassium 3.8 Creatinine 0.80 Troponin I Less than 0.017 B-Natriuretic Peptide 1011 H 837 H Procalcitonin 10/01/17 05:15 Potassium Creatinine Troponin I B-Natriuretic Peptide Procalcitonin 0.05 Laboratory Tests 09/30/17 10/01/17 15:45 05:15 WBC 6.8 12.3 H D Discharge Disposition: [facility] Disposition: [facility] Condition: Stable Discharge Activity: Activity as tolerated Discharge Diet: Resume usual diet Prescriptions (Any new or edited meds): Spironolactone [Aldactone] 25 mg PO DAILY #30 tablet Complete Home Medications List: Complete Home Medication List: ALPRAZolam [Xanax] 0.5 mg PO TID 09/30/17 Amiodarone HCl [Cordarone] 200 mg PO DAILY 09/30/17 Arformoterol Tartrate [Brovana] 15 mcg IH BID 09/30/17 Arformoterol Tartrate [Brovana] 15 mcg IH BID 09/30/17 Aspirin 325 mg PO DAILY 09/30/17 Atorvastatin Calcium 40 mg PO DAILY 09/30/17 Budesonide [Pulmicort Respules] 2 ml IH BID 09/30/17 Calcium Carbonate [Calcium Antacid] 500 mg PO TID 09/30/17 Captopril 12.5 mg PO TID 09/30/17 Cholecalciferol (Vitamin D3) [Vitamin D3] 1,000 unit PO DAILY 09/30/17 Ferrous Sulfate 325 mg PO BID 09/30/17 Furosemide [Lasix] 40 mg PO DAILY 09/30/17 Melatonin/Pyridoxine HCl (B6) [Melatonin 3 mg Tablet] 3 mg PO HS 09/30/17 Metoprolol Tartrate [Lopressor] 25 mg PO BID 09/30/17 Tolterodine Tartrate [Detrol LA] 2 mg PO DAILY 09/30/17 Vit A/Vit C/Vit E/Zinc/Copper [Preservision Areds Softgel] 1 each PO DAILY 09/30 risperiDONE [Risperdal] 0.5 mg PO DAILY 09/30/17 Spironolactone [Aldactone] 25 mg PO DAILY #30 tablet 10/01/17 Amb Orders for Discharge: Basic Metabolic Panel Time Frame: 10/04/17, Facility: [facility], Location: Nursing Units CBC Time Frame: 10/04/17, Facility: [facility], Location: Nursing Units
[2017-10-01] MEDS ORDERED: LEVOFLOXACIN IN DEXTROSE 5 % 500 MG/100 ML BAG IV SCH (19:00)
[2017-10-01] MEDS ORDERED: MELATONIN 3,000 MCG TABLET PO SCH (21:00)
--- NOTE | 2017-10-05 15:33 | ECHO ---
This report is available in the EMR
== END 2017-10-01 13:35 ==
LOC: ER 14:55 → MS 19:32
PROVIDERS: ADMIT Nurse Practitioner; ATTEND Internal Medicine
DX: D64.9 Anemia, unspecified (principal); F44.89 Other dissociative and conversion disorders; I50.23 Acute on chronic systolic (congestive) heart failure; I25.5 Ischemic cardiomyopathy; F03.90 Unspecified dementia, unspecified severity, without behavioral disturbance, psychotic disturbance, mood disturbance, and anxiety; E78.5 Hyperlipidemia, unspecified; I25.2 Old myocardial infarction; I48.91 Unspecified atrial fibrillation; Z79.01 Long term (current) use of anticoagulants; Z68.27 Body mass index [BMI] 27.0-27.9, adult
CPT/HCPCS: 36415; 70450; 71045; 80053; 81001; 83605; 83880; 84145; 84484; 85025; 87040; 87077; 87081; 87186; 87400; 93005; 93306; 94640; 96365; 96375; 96376; 99285; G0378

== ENCOUNTER 2017-10-08 18:52 | Emergency (ER) | payer MEDICARE, BC, MEDICAID ==
--- NOTE | 2017-10-08 19:04 | ERNOTE ---
<Norberto Landaverde - Last Filed: 10/08/17 19:50> Head Injury HPI - General Injury to: face Time Seen by Provider: 10/08/17 18:54 Source: EMS, alf records Exam Limitations: dementia - Immun/Allergies/Home Medications Immunization: IMMUNIZATION HX Immunizations Up to Date Yes History of Influenza Vaccine Yes Hx Pneumococcal Vaccination Yes Allergies/Adverse Reactions: Allergies Allergy/AdvReac Type Severity Reaction Status Date / Time Penicillins Allergy Severe Anaphylaxis Verified 08/23/17 10:24 latex Allergy Itching Verified 08/23/17 10:24 Sulfa (Sulfonamide Allergy Itching Verified 08/23/17 10:24 Antibiotics) adhesive AdvReac Verified 08/23/17 10:24 Home Medications: HOME MEDICATIONS ALPRAZolam [Xanax] 0.5 mg PO TID 09/30/17 [Last Taken 09/30/17 12:00] Amiodarone HCl [Cordarone] 200 mg PO DAILY 09/30/17 [Last Taken 09/30/17 07:00] Arformoterol Tartrate [Brovana] 15 mcg IH BID 09/30/17 [Last Taken Unknown] Arformoterol Tartrate [Brovana] 15 mcg IH BID 09/30/17 [Last Taken 09/30/17 07: 00] Aspirin 325 mg PO DAILY 09/30/17 [Last Taken 09/30/17 07:00] Atorvastatin Calcium 40 mg PO DAILY 09/30/17 [Last Taken 09/29/17 21:00] Budesonide [Pulmicort Respules] 2 ml IH BID 09/30/17 [Last Taken 09/30/17 07:00] Calcium Carbonate [Calcium Antacid] 500 mg PO TID 09/30/17 [Last Taken 09/30/17 11:00] Captopril 12.5 mg PO TID 09/30/17 [Last Taken 09/30/17 11:00] Cholecalciferol (Vitamin D3) [Vitamin D3] 1,000 unit PO DAILY 09/30/17 [Last Taken 09/30/17 07:00] Ferrous Sulfate 325 mg PO BID 09/30/17 [Last Taken 09/30/17 07:00] Furosemide [Lasix] 40 mg PO DAILY 09/30/17 [Last Taken 09/30/17 08:00] Melatonin/Pyridoxine HCl (B6) [Melatonin 3 mg Tablet] 3 mg PO HS 09/30/17 [Last Taken 09/30/17 15:00] Metoprolol Tartrate [Lopressor] 25 mg PO BID 09/30/17 [Last Taken 09/30/17 07:00 ] Tolterodine Tartrate [Detrol LA] 2 mg PO DAILY 09/30/17 [Last Taken 09/30/17 07: 00] Vit A/Vit C/Vit E/Zinc/Copper [Preservision Areds Softgel] 1 each PO DAILY 09/30 [Last Taken 09/30/17 07:00] risperiDONE [Risperdal] 0.5 mg PO DAILY 09/30/17 [Last Taken 09/30/17 07:00] Spironolactone [Aldactone] 25 mg PO DAILY #30 tablet 10/01/17 [Last Taken Unknown] - History of Present Illness Narrative: Patient is a fairly advanced dementia patients was unable to assist in her history. Apparently at 5:30 this morning patient tripped and struck the area around her right eye which produced approximately 2 cm laceration at the right eyebrow. Throughout the day the eye is continued to swell and produce fairly significant ecchymosis. The eyelid is now swollen shut. Occurred: this morning Location Occurred: other - alf Severity: moderate Head Injury Location: facial Method of Injury: Reports: fell Reason for Fall: Reports: unknown Loss of Consciousness: Reports: unsure Review of Systems - Review of Systems Constitutional: Present: See HPI EYE: Present: see HPI ENT: Present: no symptoms reported Respiratory: Present: no symptoms reported Cardiology: Present: no symptoms reported Gastrointestinal/Abdominal: Present: no symptoms reported Genitourinary: Present: no symptoms reported Musculoskeletal: Present: no symptoms reported Skin: Present: no symptoms reported Neurological: Present: See HPI Endocrine: Present: no symptoms reported Hematologic/Lymphatic: Present: no symptoms reported Psych: Present: no symptoms reported - Patient's Past Medical History Patient History - Medical: Anemia, Alzheimer's Disease, Dementia, GERD, UTI'S Patient History - Cardiac/Respiratory: Asthma, CHF, COPD, CVA/Stroke, Hyperlipidemia, Myocardial Infarction, Pneumonia, Home O2 Use Patient History - Cancer: No Hx of Cancer Patient History - Surgical Procedures: No surgical history, Back Surgery, Cholecystectomy, Colonoscopy, EGD, T & A Patient History - Other: None LMP (females 10-50): Menopausal - Family History Mother Family History - Medical: Family History - Cardiac/Respiratory: CVA/Stroke, Hypertension Family History - Cancer: No pertinent family hx Father Family History - Medical: , History Unknown, Bipolar Family History - Cardiac/Respiratory: No pertinent hx Family History - Cancer: History Unknown - Social History Living Situations: assisted living Abuse History: No History of abuse Psych History: Psychiatric Hx - Immunizations Immunizations Up to Date: Yes Hx Pneumococcal Vaccination: Yes History of Influenza Vaccine: Yes Physical Exam - Physical Exam General Appearance: Present: wd/wn, no apparent distress - all the patient is unable to assist me given her dementia status Head Exam: Present: swelling - and bruising around the right periorbital region with a laceration in the right eyebrow Eye Exam: Normal inspection: bilateral, PERRL: bilateral Ears, Nose, Throat: Present: normal ENT inspection, H, normal pharynx Neck: Present: normal inspection, nontender Respiratory: Present: no respiratory distress, normal breath sounds, no accessory muscle use, chest nontender, lungs clear Cardiovascular/Chest: Present: regular rate, rhythm, no murmur, normal peripheral pulses Gastrointestinal/Abdominal: Present: normal bowel sounds, nontender, nondistended, soft, no organomegaly Rectal Exam: Present: deferred Back Exam: Present: normal inspection, normal range of motion Extremity Exam: Present: normal inspection, non-tender, no edema, normal range of motion Neurological Exam: Present: disoriented to person, disoriented to time, disoriented to place, disoriented to situation Skin Exam: Present: normal color, warm/dry Lymphatic Exam: Present: no adenopathy ED Progress - Vital Signs Vital Signs: Vital Signs 10/08/17 18:54 Temperature 37.4 C Pulse Rate 72 Respiratory 23 H Rate Blood Pressure 129/66 O2 Sat by Pulse 91 Oximetry - CT/Ultrasound CT/Ultrasound Narrative: CT of the head, neck and maxillofacial was reviewed by me - Progress/Reassessment Chief Complaint: Head Injury - Transfer of Care Physician Sign Out: Norberto Landaverde Receiving Physician: Josue Jarquin Expected Disposition: Discharge Departure Clinical Impression: Facial contusion Qualifiers: Encounter type: initial encounter Qualified Code(s): S00.83XA - Contusion of other part of head, initial encounter - Departure [facility] Condition: Good Instructions: Eye Contusion, [id number], Cryotherapy, [id number] Additional Instructions: Have her seen by Dr. Shaffer in the next week or so for follow up. Return to the ER if any concerning symptoms. May use tylenol or ibuprofen as needed for pain. Referrals: Jocelin Shaffer DO [Primary Care Provider] - <Josue Jarquin - Last Filed: 10/08/17 22:07> Head Injury HPI - Immun/Allergies/Home Medications Immunization: IMMUNIZATION HX Immunizations Up to Date Yes History of Influenza Vaccine Yes Hx Pneumococcal Vaccination Yes ED Progress - Vital Signs Vital Signs: Vital Signs 10/08/17 10/08/17 10/08/17 18:54 19:11 19:26 Temperature 37.4 C Pulse Rate 72 70 74 Respiratory 23 H 23 H 22 H Rate Blood Pressure 129/66 143/68 87/61 O2 Sat by Pulse 91 89 L 90 Oximetry 10/08/17 20:05 Temperature Pulse Rate 67 Respiratory 24 H Rate Blood Pressure 133/58 O2 Sat by Pulse 96 Oximetry - CT/Ultrasound CT/Ultrasound Narrative: CT head: Impression: No acute intracranial process. Mild cerebral volume loss. Moderate chronic small vessel ischemic disease. Right periorbital soft tissue swelling/hematoma. No post septal inflammatory changes Electronically signed by Jennifer Ramirez D.O.. CT maxillofacial : IMPRESSION: Mild irregularity to the nasal bone with mild overlying soft tissue swelling which may relate to an age-indeterminate fracture. Recommend clinical correlation with point tenderness. Right periorbital soft tissue swelling/hematoma. There are no post septal inflammatory changes. Electronically signed by Jennifer Ramirez D.O.. CT C-spine: Impression: The exam is significantly degraded by motion artifact. No acute fracture identified. Multilevel degenerative changes as detailed above. . Electronically signed by Jennifer Ramirez D.O..
[2017-10-08] MEDS ORDERED: IBUPROFEN 100 MG/5 ML BTL PO ONE (19:52)
[2017-10-08 22:33] VITALS: BP 107/83
== END 2017-10-08 23:00 ==
LOC: ER 18:52
DX: Y92.129 Unspecified place in nursing home as the place of occurrence of the external cause; W01.10XA Fall on same level from slipping, tripping and stumbling with subsequent striking against unspecified object, initial encounter; Z87.440 Personal history of urinary (tract) infections; S00.83XA Contusion of other part of head, initial encounter; I25.2 Old myocardial infarction; Z99.81 Dependence on supplemental oxygen

== ENCOUNTER 2018-09-16 06:42 | Inpatient (IN) | payer BC, MEDICAID, MEDICARE ==
[2018-09-16] MEDS ORDERED: ALBUTEROL SULFATE 2.5 MG/0.5 ML VIAL.NEB IH ONE (07:05)
--- NOTE | 2018-09-16 07:11 | ERNOTE ---
Dyspnea - Date Date of Service: 09/16/18 - General Presenting Symptoms: shortness of breath, difficulty of breathing Time Seen by Provider: 09/16/18 07:00 Exam Limitations: clinical condition - Immun/Allergies/Home Medications Immunizations: IMMUNIZATION HX Immunizations Up to Date Yes History of Influenza Vaccine More Information Required Hx Pneumococcal Vaccination More Information Required Allergies/Adverse Reactions: Allergies Penicillins Allergy (Severe, Verified 02/10/18 18:05) Anaphylaxis cefuroxime [From Ceftin] Allergy (Verified 02/10/18 18:05) latex Allergy (Verified 02/10/18 18:05) Itching lorazepam Allergy (Verified 02/10/18 18:05) Sulfa (Sulfonamide Antibiotics) Allergy (Verified 02/10/18 18:05) Itching adhesive Adverse Reaction (Verified 02/10/18 18:05) Home Medications: HOME MEDICATIONS ALPRAZolam [Xanax] 0.5 mg PO TID 09/30/17 [Last Taken 12/16/17 07:00] Amiodarone HCl [Cordarone] 200 mg PO DAILY 09/30/17 [Last Taken 12/16/17 07:00] Aspirin 325 mg PO DAILY 09/30/17 [Last Taken 12/16/17 07:00] Atorvastatin Calcium 40 mg PO HS 09/30/17 [Last Taken 12/16/17 20:00] Budesonide [Pulmicort Respules] 2 ml IH BID 09/30/17 [Last Taken 12/17/17 07:00] Calcium Carbonate [Calcium Antacid] 500 mg PO TID 09/30/17 [Last Taken 12/16/17 16:00] Ferrous Sulfate 325 mg PO BID 09/30/17 [Last Taken 12/16/17 17:00] Melatonin/Pyridoxine HCl (B6) [Melatonin 3 mg Tablet] 3 mg PO HS 09/30/17 [Last Taken 12/16/17 16:00] Metoprolol Tartrate [Lopressor] 25 mg PO BID 09/30/17 [Last Taken 12/16/17 16:30] Tolterodine Tartrate [Detrol LA] 2 mg PO DAILY 09/30/17 [Last Taken 12/16/17 07:00] Vit A/Vit C/Vit E/Zinc/Copper [Preservision Areds Softgel] 1 each PO DAILY 09/30/17 [Last Taken 12/16/17 07:00] risperiDONE [Risperdal] 0.5 mg PO DAILY 09/30/17 [Last Taken 12/16/17 07:00] Acetaminophen [Tylenol] 650 mg PO Q6H PRN 12/17/17 [Last Taken Unknown] Ibuprofen 400 mg PO TID PRN 12/17/17 [Last Taken Unknown] Polyethylene Glycol 3350 [Miralax] 17 gm PO DAILY 12/17/17 [Last Taken 12/16/17 07:00] Budesonide [Pulmicort Flexhaler] 90 mcg IH Q6H #1 aer.pow.[email or web address] 12/24/17 [Last Taken Unknown] Polyvinyl Alcohol [Artificial Tears] 1 drop QAM 12/28/17 [Last Taken Unknown] Cholecalciferol (Vitamin D3) [Vitamin D3] 1,000 unit PO DAILY 02/10/18 [Last Taken Unknown] Ipratropium/Albuterol Sulfate [Iprat-Albut 0.5-3(2.5) mg/3 ml] 3 ml IH QID 02/10/18 [Last Taken Unknown] L.acidoph,Paracasei, B.lactis [Probiotic] 1 each PO BID 02/10/18 [Last Taken Unknown] aluminum-mag hydroxide-simethicone 200 mg-200 mg-20 mg/5 mL oral susp 30 ml PO QID PRN ml 03/02/18 [Last Taken Unknown] arformoterol 15 mcg/2 mL solution for nebulization 15 mcg IH Q12H 03/02/18 [Last Taken Unknown] furosemide 40 mg tablet 40 mg PO DAILY 03/02/18 [Last Taken Unknown] - History of Present Illness Narrative: 77 year old female presenting with dyspnea. According to family, patient does have a history of CAD, CHF, COPD, former smoker, she has a wound on her left foot and ankle. Patient was tired yesterday. She does appear to have decreased respirations, she is DNR. Family states that she has been admitted here, and has been seen in [facility] as a cardiac patient as well. She is warm. Dr. Shaffer used to be her doctor. Patient was hypoxic in the senior living. She received two nebs. Date (Duration): 09/16/18 Time (Timing): 05:00 Severity: moderate Treatment HEARING THERAPY DIRECTOR: paramedics, oxygen, albuterol Initiating event: Reports: unknown Modifying Factors - (Improves): Reports: activity Associated Symptoms-Dyspnea: Reports: ankle/leg swelling, weakness Prior Treatment: Denies: recently seen Review of Systems - Review of Systems Constitutional: Present: See HPI, weakness, fatigue EYE: Present: no symptoms reported ENT: Present: no symptoms reported Respiratory: Present: shortness of breath, wheezing Cardiology: Present: no symptoms reported Gastrointestinal/Abdominal: Present: no symptoms reported Genitourinary: Present: no symptoms reported Musculoskeletal: Present: no symptoms reported Skin: Present: no symptoms reported Neurological: Present: no symptoms reported Endocrine: Present: no symptoms reported Hematologic/Lymphatic: Present: no symptoms reported Psych: Present: no symptoms reported Medical History (Last Reviewed 09/16/18 @ 07:09 by Ruben Quijano MD) Severe sepsis (Chronic) Onset Date: Unknown Pneumonia (Chronic) Onset Date: 10/11/17 NSTEMI (non-ST elevated myocardial infarction) (Acute) Onset Date: Unknown Normocytic anemia (Chronic) Onset Date: 05/06/17 Ischemic cardiomyopathy (Chronic) Onset Date: 10/11/17 Hyperlipidemia (Chronic) Onset Date: 06/18/16 Heart failure with reduced ejection fraction (Acute) Onset Date: 10/11/17 Essential hypertension (Chronic) Onset Date: 04/2017 Dysphagia (Chronic) Onset Date: 05/2016 Diabetes type 2, controlled (Chronic) Onset Date: Unknown Dementia (Chronic) Onset Date: 05/2016 CVA (cerebral vascular accident) (Acute) Onset Date: Unknown COPD (chronic obstructive pulmonary disease) (Chronic) Onset Date: Unknown Gastritis (Chronic) Onset Date: 05/06/17 Chronic cough (Chronic) Onset Date: 06/18/16 CAD (coronary artery disease) (Chronic) Onset Date: 10/11/17 Hyperlipidemia (Chronic) NSTEMI (non-ST elevated myocardial infarction) (Chronic) HFrEF (heart failure with reduced ejection fraction) (Chronic) Ischemic cardiomyopathy (Chronic) COPD (chronic obstructive pulmonary disease) (Chronic) Dementia (Chronic) Diverticula of intestine Onset Date: Unknown Paroxysmal atrial fibrillation Onset Date: 10/11/17 Surgical History: Surgical History (Last Reviewed 09/16/18 @ 07:09 by Ruben Quijano MD) H/O colonoscopy Onset Date: Unknown H/O rhinoplasty Onset Date: Unknown History of carpal tunnel release Onset Date: Unknown History of cholecystectomy Onset Date: Unknown History of hysterectomy Onset Date: Unknown ankle surgery Onset Date: Unknown Left egd with biopsy Onset Date: 01/10/10 Dr. Hernandez-dudley test negative Family History: Family History (Last Reviewed 09/16/18 @ 07:09 by Ruben Quijano MD) Father No problems noted. Mother Cerebral thrombosis Social History: Preferred Language Kinyarwanda Do you have any sikhism or No cultural preference? Smoking Status Former smoker Abuse History No History of abuse Psych History Psychiatric Hx Alcohol Use none Drug Use none (Last Reviewed 09/06/18 @ 09:10 by Donna Connor) No Social History Section defined Physical Exam - Physical Exam Narrative: elderly female in moderate respiratory distress General Appearance: Present: moderate distress Head Exam: Present: normal inspection, no evidence of injury Eye Exam: Normal inspection: bilateral, PERRL: bilateral, EOMI: bilateral Ears, Nose, Throat: Present: normal ENT inspection, normal pharynx Neck: Present: normal inspection, nontender Respiratory: Present: respiratory distress, accessory muscle use, decreased breath sounds, crackles Cardiovascular/Chest: Present: regular rate, rhythm, normal peripheral pulses, gallop/S3 Gastrointestinal/Abdominal: Present: normal bowel sounds, nontender, nondistended, soft, no organomegaly Back Exam: Present: normal inspection, normal range of motion, no CVA tenderness, no vertebral tenderness Extremity Exam: Present: joint swelling, extremity edema Neurological Exam: Present: other - difficulty with arousal Skin Exam: Present: pallor, skin rash Lymphatic Exam: Present: no adenopathy Progress - Results and Orders Patient's Lab Results:: I have reviewed the patient's lab results. - Vital Signs Patient's Vital Signs:: I have reviewed the patient's vital signs. Vital Signs: Vital Signs 09/16/18 06:43 09/16/18 07:04 Temperature 37.9 C 37.9 C Pulse Rate 99 100 Respiratory Rate 36 H 38 H Blood Pressure 101/43 96/45 O2 Sat by Pulse Oximetry 94 91 L - EKG EKG #1 EKG read: Interp. by nj - Atrial fibrillation, 99 - X-Ray X-Ray #1 X-Ray: chest - pneumonia left lower lobe - Progress/Reassessment Chief Complaint: Dyspnea Plan - Plan Plan: patient admitted to Dr. Jaimie Levin, patient has pneumonia, CHF, hypernatremia. She has had agonal respirations, family is aware of poor prognosis. She has a healing foot ulcer left lower extremity. Departure Clinical Impression: Pneumonia - Departure Disposition: Still a patient Condition: Serious
[2018-09-16] MEDS ORDERED: ALBUTEROL SULFATE/IPRATROPIUM 3 ML NEBU IH ONE ×2 (07:12)
[2018-09-16 07:22] LABS: Hematocrit 35.2 % (37.0-47.0); Hemoglobin 10.3 gm/dL (12.5-16.0); Mean Corpuscular Hemoglobin 29.9 pg (27-31); Mean Corpuscular Hgb Conc 29.3 g/dl (32-36); Mean Platelet Volume 11.2 fl (8-12.5); Neutrophil # 15.8 K/mm3 (1.3-6.0); Neutrophil % 83.1 % (42-75.0); Platelet Count 249 K/mm3 (150-450); Red Blood Count 3.45 M/mm3 (4.2-5.4); Red Cell Distribution Width 17.8 % (11.5-14.0)
[2018-09-16] MEDS ORDERED: LEVOFLOXACIN IN DEXTROSE 5 % 500 MG/100 ML BAG IV SCH (07:30)
[2018-09-16 07:35] LABS: Prothrombin Time (Patient) 11.6 Seconds (9.0-11.0)
[2018-09-16 07:40] LABS: INR 1.16 INR (0.90-1.10); Partial Thrombolplastin Time 22.9 Seconds (24-32)
[2018-09-16 07:43] LABS: Albumin * 1.6 gm/dl (3.4-5.0); Anion Gap 6.5 mmol/L (6.8-13.8); BUN/Creatinine Ratio 18.6 (9.0-21.6); Bilirubin, Total 0.2 mg/dL (0.0-1.1); CRP 8.3 mg/dL (0.0-0.9); Ca. Corrected For Albumin 10.6 mg/dL (8.4-10.2); Carbon Dioxide 40.6 mmol/L (24-32.6); Potassium 4.1 mmol/L (3.4-4.6); Total Protein 7.7 gm/dL (6.2-8.2); Troponin I 0.032 ng/mL (0.00-0.10)
[2018-09-16] MEDS ORDERED: NORMAL SALINE 1,000 ML IV ONE (07:52)
[2018-09-16] MEDS ORDERED: DEXTROSE 5 % IN WATER 1,000 ML IV PRN (08:11)
[2018-09-16] MEDS ORDERED: MAG HYDROX/ALUMINUM HYD/SIMETH 30 ML UDC PO PRN (09:35)
[2018-09-16] MEDS ORDERED: ACETAMINOPHEN 325 MG TABLET PO PRN (09:35)
[2018-09-16] MEDS ORDERED: NORMAL SALINE 1,000 ML IV PRN (09:44)
[2018-09-16] MEDS ORDERED: BUDESONIDE 0.5 MG/2 ML VIAL.NEB IH SCH ×2 (09:45→10:00)
[2018-09-16] MEDS ORDERED: AMIODARONE HCL 200 MG TABLET PO SCH (09:45)
[2018-09-16] MEDS ORDERED: BUDESONIDE 90 MCG IH SCH (09:45)
[2018-09-16] MEDS ORDERED: ENOXAPARIN SODIUM 40 MG/0.4 ML SYRG SC SCH (09:45)
[2018-09-16] MEDS ORDERED: ALBUTEROL SULFATE/IPRATROPIUM 3 ML NEBU IH SCH (09:45)
[2018-09-16] MEDS ORDERED: FORMOTEROL FUMARATE 20 MCG/2 ML VIAL IH SCH (10:30)
[2018-09-16] MEDS: ALBUTEROL SULFATE/IPRATROPIUM 3 ML NEBU IH SCH ×3 (10:40→18:08)
[2018-09-16] MEDS ORDERED: HYDROPHILIC OINTMENT 454 APPL JAR TP PRN (12:29)
[2018-09-16] MEDS ORDERED: LORazepam 2 MG/ML DISP.SYRIN IV PRN (12:36)
[2018-09-16] MEDS ORDERED: ALPRAZolam 0.5 MG TABLET PO SCH (13:00)
[2018-09-16] MEDS: MORPHINE SULFATE 4 MG/ML SYRG IV PRN ×4 (14:07→20:09)
[2018-09-16] MEDS ORDERED: ATROPINE SULFATE 150 DROP BTL PO PRN (17:03)
--- NOTE | 2018-09-16 19:48 | HP ---
Chief Complaint - Chief Complaint Date of Service: 09/16/18 Time of Service: 08:30 Chief Complaint: Weakness, shortness of breath, decreased mental status History of Present Illness: Mrs. Santacruz is a 77-year-old female patient at [facility]. He became less responsive and having more labored breathing and was sent to the emergency room for evaluation. She was found to have a left lower lobe pneumonia, a mild leukocytosis, hypoxemia, but a normal lactic acid. She has advanced COPD and breathing is very shallow even on good days. She has been pneumonia with an acute exacerbation of chronic obstructive lung disease. She has a DO NOT RESUSCITATE advanced directive in place but the family has been vacillating about whether to place her on hospice or not because she needs IV antibiotics when she gets pneumonia. I'll told him we would try to treat the pneumonia and then make a decision if she survives this. There is agreement with that. Medical History (Last Reviewed 09/16/18 @ 10:07 by Joana Kline RN) Severe sepsis (Chronic) Onset Date: Unknown Pneumonia (Chronic) Onset Date: 10/11/17 NSTEMI (non-ST elevated myocardial infarction) (Acute) Onset Date: Unknown Normocytic anemia (Chronic) Onset Date: 05/06/17 Ischemic cardiomyopathy (Chronic) Onset Date: 10/11/17 Hyperlipidemia (Chronic) Onset Date: 06/18/16 Heart failure with reduced ejection fraction (Acute) Onset Date: 10/11/17 Essential hypertension (Chronic) Onset Date: 04/2017 Dysphagia (Chronic) Onset Date: 05/2016 Diabetes type 2, controlled (Chronic) Onset Date: Unknown Dementia (Chronic) Onset Date: 05/2016 CVA (cerebral vascular accident) (Acute) Onset Date: Unknown COPD (chronic obstructive pulmonary disease) (Chronic) Onset Date: Unknown Gastritis (Chronic) Onset Date: 05/06/17 Chronic cough (Chronic) Onset Date: 06/18/16 CAD (coronary artery disease) (Chronic) Onset Date: 10/11/17 Hyperlipidemia (Chronic) NSTEMI (non-ST elevated myocardial infarction) (Chronic) HFrEF (heart failure with reduced ejection fraction) (Chronic) Ischemic cardiomyopathy (Chronic) COPD (chronic obstructive pulmonary disease) (Chronic) Dementia (Chronic) Diverticula of intestine Onset Date: Unknown Paroxysmal atrial fibrillation Onset Date: 10/11/17 Surgical History: Surgical History (Last Reviewed 09/16/18 @ 10:07 by Joana Kline RN) H/O colonoscopy Onset Date: Unknown H/O rhinoplasty Onset Date: Unknown History of carpal tunnel release Onset Date: Unknown History of cholecystectomy Onset Date: Unknown History of hysterectomy Onset Date: Unknown ankle surgery Onset Date: Unknown Left egd with biopsy Onset Date: 01/10/10 Dr. Hernandez-dudley test negative Family History: Family History (Last Reviewed 09/16/18 @ 10:07 by Joana lKine RN) Father No problems noted. Mother Cerebral thrombosis Social History: Patient Lives/Resources [facility] Utilized Preferred Language Armenian Do you have any samaritan or Yes: Mosque cultural preference? Smoking Status Former smoker Have you smoked in the past 12 No months Abuse History No History of abuse Psych History Psychiatric Hx Alcohol Use none Drug Use none (Last Reviewed 09/06/18 @ 09:10 by Donna Connor) No Social History Section defined Review Of Systems (GEN) - Review of Systems Generalized/Overall Review: Present: Weakness, Malaise, Fatigue, Weight loss. Absent: Chills, Fever, Diaphoresis EENTM: Present: No Symptoms Reported Respiratory: Present: Cough, Shortness of Breath, Stridor, Wheezing Cardiac: Present: No Symptoms Reported Abdominal: Present: No Symptoms Reported Genitourinary: Present: No Symptoms Reported Musculoskeletal: Present: No Symptoms Reported Neurological: Present: No Symptoms Reported Skin: Present: Other - Multiple skin breakdown areas and possibly an infected bone in her foot. Endocrine: Present: No Symptoms Reported Misc: All systems neg except as marked Immunizations: IMMUNIZATION HX Immunizations Up to Date Yes History of Influenza Vaccine More Information Required Hx Pneumococcal Vaccination More Information Required Allergies/Adverse Reactions: Allergies Allergy/AdvReac Type Severity Reaction Status Date / Time Penicillins Allergy Severe Anaphylaxis Verified 09/16/18 10:07 cefuroxime [From Ceftin] Allergy Verified 09/16/18 10:07 latex Allergy Itching Verified 09/16/18 10:07 lorazepam Allergy Verified 09/16/18 10:07 Sulfa (Sulfonamide Allergy Itching Verified 09/16/18 10:07 Antibiotics) adhesive AdvReac Verified 09/16/18 10:07 Home Medications: HOME MEDICATIONS ALPRAZolam [Xanax] 0.25 mg PO BID 09/30/17 [Last Taken 12/16/17 07:00] Amiodarone HCl [Cordarone] 200 mg PO DAILY 09/30/17 [Last Taken 12/16/17 07:00] Aspirin 325 mg PO DAILY 09/30/17 [Last Taken 12/16/17 07:00] Budesonide [Pulmicort Respules] 2 ml IH BID 09/30/17 [Last Taken 12/17/17 07:00] Calcium Carbonate [Calcium Antacid] 500 mg PO TID 09/30/17 [Last Taken 12/16/17 16:00] Ferrous Sulfate 325 mg PO TID 09/30/17 [Last Taken 12/16/17 17:00] Melatonin/Pyridoxine HCl (B6) [Melatonin 3 mg Tablet] 5 mg PO HS 09/30/17 [Last Taken 12/16/17 16:00] risperiDONE [Risperdal] 0.5 mg PO DAILY 09/30/17 [Last Taken 12/16/17 07:00] Acetaminophen [Tylenol] 650 mg PO Q6H PRN 12/17/17 [Last Taken Unknown] Polyethylene Glycol 3350 [Miralax] 17 gm PO DAILY 12/17/17 [Last Taken 12/16/17 07:00] Cholecalciferol (Vitamin D3) [Vitamin D3] 2,000 unit PO DAILY 02/10/18 [Last Taken Unknown] Ipratropium/Albuterol Sulfate [Iprat-Albut 0.5-3(2.5) mg/3 ml] 3 ml IH QID 02/10/18 [Last Taken Unknown] L.acidoph,Paracasei, B.lactis [Probiotic] 1 each PO BID 02/10/18 [Last Taken Unknown] furosemide 40 mg tablet 40 mg PO DAILY 03/02/18 [Last Taken Unknown] Acetylcysteine [Mucomyst 10%] 400 mg MC BID 09/16/18 [Last Taken Unknown] Albuterol Sulfate [Albuterol Sulfate 2.5 MG/0.5ML] 1 vial INHALATION Q4H PRN 09/16/18 [Last Taken Unknown] Albuterol Sulfate [Ventolin HFA] 2 puff INHALATION Q4H PRN 09/16/18 [Last Taken Unknown] Amino Acids/Protein Hydrolys [Pro-Stat Liquid] 30 ml PO BID 09/16/18 [Last Taken Unknown] Bisacodyl [Women's Laxative] 5 mg PO DAILY PRN 09/16/18 [Last Taken Unknown] Doxycycline Monohydrate 100 mg PO DAILY 09/16/18 [Last Taken Unknown] Hydrophilic Ointment [Aquaphilic Ointment] 1 appl TOPICAL BID PRN 09/16/18 [Last Taken Unknown] Hydroxyzine HCl 25 mg PO QID PRN 09/16/18 [Last Taken Unknown] Levothyroxine Sodium [Levo-T] 88 mcg PO DAILY 09/16/18 [Last Taken Unknown] Potassium Chloride [K-Tab ER] 10 meq PO DAILY 09/16/18 [Last Taken Unknown] Pravastatin Sodium [Pravachol] 80 mg PO DAILY 09/16/18 [Last Taken Unknown] Propylene Glycol/Peg 400/Pf [Systane 0.3-0.4% Eye Drops] 1 ea OPHTHALMIC (EYE) DAILY 09/16/18 [Last Taken Unknown] Triamcinolone Acetonide [Kenalog 0.1% Ointment] 15 gm TOPICAL BID PRN 09/16/18 [Last Taken Unknown] Exam - Exam Vital Signs: Vital Signs - Last Taken Temp 37.4 C 09/16/18 09:30 Pulse 94 09/16/18 12:00 Resp 33 H 09/16/18 12:00 BP 119/44 09/16/18 09:30 Pulse Ox 74 L 09/16/18 12:00 Constitutional: Present: Cooperative, Elderly, Thin and frail. Absent: Alert, Oriented x3 ENT Exam: Present: normal ENT inspection Eye Exam: bilateral eye: normal inspection, PERRL, EOMI Neck: Present: non-tender, full range of motion Back Exam: Present: normal inspection, no CVA tenderness Breasts: Present: Exam deferred Respiratory: Present: decreased breath sounds, crackles, rhonchi, stridor, wheezing, expiration (prolonged) Cardiovascular/Chest: Present: normal peripheral pulses Peripheral Pulses: carotid (R): 2+, carotid (L): 2+, radial (R): 2+, radial (L): 2+ Abdomen: Present: Normal bowel sounds, soft, nontender, nondistended /Rectal: Present: Exam deferred Extremity: Present: lower extremity edema - Very mild Lymphatic: Present: no adenopathy Neurologic: Present: acid etch operator II-XII nml as tested - But difficult to evaluate because she cannot follow commands for testing. Appearance: Present: disheveled, impaired insight, impaired recent memory, impaired remote memory Eye contact: Present: cooperative, other - Essentially nonverbal. Absent: good eye contact, normal speech Thoughts: Present: normal thought pattern, no apparent hallucination Diagnostic Studies: Abnormal Lab Results 09/16/18 09/16/18 09/16/18 Range/Units 07:00 07:00 07:00 WBC 19.0 H (4.0-10.5) K/mm3 RBC 3.45 L (4.2-5.4) M/mm3 Hgb 10.3 L (12.5-16.0) gm/dL Hct 35.2 L (37.0-47.0) % MCV 102.0 H (78-100) fl MCHC 29.3 L (32-36) g/dl RDW 17.8 H (11.5-14.0) % Immature Gran % (Auto) 0.60 H (0.001-0.429) % Immature Gran # (Auto) 0.11 H (0.000-0.0310) K/mm3 Neutrophils % 83.1 H (42-75.0) % Lymphocytes % 9.5 L (20-51) % Neutrophils # 15.8 H (1.3-6.0) K/mm3 PT 11.6 H (9.0-11.0) Seconds INR (Anticoag Therapy) 1.16 H (0.90-1.10) INR PTT (Le) 22.9 L (24-32) Seconds pCO2 (32.0-45.0) mmHg pO2 (83.0-108.0) mmHg HCO3 (21.0-28.0) mmol/L Total CO2 (19.0-24.0) mmol/L Base Excess (-2.0-3.0) mmol/L ABG pH (7.35-7.45) ABG O2 Sat (Measured) (94.0-98.0) % Sodium 157 H (132-142) mmol/L Plasma Sodium 157 H (130-142) mmol/L Chloride 114 H (97-106) mmol/L Carbon Dioxide 40.6 H (24-32.6) mmol/L Anion Gap 6.5 L (6.8-13.8) mmol/L BUN 32 H D (3-23) mg/dL Creatinine 1.72 H D (0.4-1.4) mg/dL Est GFR (Non-Af Amer) 30 L D (60-130) mL/min Calcium Adj for Albumin 10.6 H (8.4-10.2) mg/dL ALT 4 L (19-67) U/L C-Reactive Prot, Quant 8.3 H (0.0-0.9) mg/dL B-Natriuretic Peptide 2291 H (5-550) pg/mL Albumin 1.6 L (3.4-5.0) gm/dl 09/16/18 Range/Units 07:05 WBC (4.0-10.5) K/mm3 RBC (4.2-5.4) M/mm3 Hgb (12.5-16.0) gm/dL Hct (37.0-47.0) % MCV (78-100) fl MCHC (32-36) g/dl RDW (11.5-14.0) % Immature Gran % (Auto) (0.001-0.429) % Immature Gran # (Auto) (0.000-0.0310) K/mm3 Neutrophils % (42-75.0) % Lymphocytes % (20-51) % Neutrophils # (1.3-6.0) K/mm3 PT (9.0-11.0) Seconds INR (Anticoag Therapy) (0.90-1.10) INR PTT ([place]) (24-32) Seconds pCO2 79.6 H* (32.0-45.0) mmHg pO2 60.2 L (83.0-108.0) mmHg HCO3 40.6 H (21.0-28.0) mmol/L Total CO2 43.1 H (19.0-24.0) mmol/L Base Excess 11.9 H (-2.0-3.0) mmol/L ABG pH 7.33 L (7.35-7.45) ABG O2 Sat (Measured) 87.8 L (94.0-98.0) % Sodium (132-142) mmol/L Plasma Sodium (130-142) mmol/L Chloride (97-106) mmol/L Carbon Dioxide (24-32.6) mmol/L Anion Gap (6.8-13.8) mmol/L BUN (3-23) mg/dL Creatinine (0.4-1.4) mg/dL Est GFR (Non-Af Amer) (60-130) mL/min Calcium Adj for Albumin (8.4-10.2) mg/dL ALT (19-67) U/L C-Reactive Prot, Quant (0.0-0.9) mg/dL B-Natriuretic Peptide (5-550) pg/mL Albumin (3.4-5.0) gm/dl Laboratory Results WBC 19.0 K/mm3 (4.0-10.5) H 09/16/18 07:00 RBC 3.45 M/mm3 (4.2-5.4) L 09/16/18 07:00 Hgb 10.3 gm/dL (12.5-16.0) L 09/16/18 07:00 Hct 35.2 % (37.0-47.0) L 09/16/18 07:00 MCV 102.0 fl (78-100) H 09/16/18 07:00 MCH 29.9 pg (27-31) 09/16/18 07:00 MCHC 29.3 g/dl (32-36) L 09/16/18 07:00 RDW 17.8 % (11.5-14.0) H 09/16/18 07:00 Plt Count 249 K/mm3 (150-450) 09/16/18 07:00 MPV 11.2 fl (8-12.5) 09/16/18 07:00 Immature Gran % (Auto) 0.60 % (0.001-0.429) H 09/16/18 07:00 Immature Gran # (Auto) 0.11 K/mm3 (0.000-0.0310) H 09/16/18 07:00 Neutrophils % 83.1 % (42-75.0) H 09/16/18 07:00 Lymphocytes % 9.5 % (20-51) L 09/16/18 07:00 Monocytes % 5.0 % (0.0-9) 09/16/18 07:00 Eosinophils % 1.4 % (0.0-3.0) 09/16/18 07:00 Basophils % 0.4 % (0.0-1.0) 09/16/18 07:00 Nucleated RBC % 0.0 k/mm3 (0-1) 09/16/18 07:00 Neutrophils # 15.8 K/mm3 (1.3-6.0) H 09/16/18 07:00 Lymphocytes # 1.80 k/mm3 (1.5-3.5) 09/16/18 07:00 Monocytes # 1.0 k/mm3 (0.0-1.0) 09/16/18 07:00 Eosinophils # 0.3 k/mm3 (0.0-0.7) 09/16/18 07:00 Absolute Basophils 0.1 k/mm3 (0.0-0.1) 09/16/18 07:00 PT 11.6 Seconds (9.0-11.0) H 09/16/18 07:00 INR (Anticoag Therapy) 1.16 INR (0.90-1.10) H 09/16/18 07:00 PTT (Le) 22.9 Seconds (24-32) L 09/16/18 07:00 pCO2 79.6 mmHg (32.0-45.0) H* 09/16/18 07:05 pO2 60.2 mmHg (83.0-108.0) L 09/16/18 07:05 HCO3 40.6 mmol/L (21.0-28.0) H 09/16/18 07:05 Total CO2 43.1 mmol/L (19.0-24.0) H 09/16/18 07:05 Base Excess 11.9 mmol/L (-2.0-3.0) H 09/16/18 07:05 ABG pH 7.33 (7.35-7.45) L 09/16/18 07:05 ABG O2 Sat (Measured) 87.8 % (94.0-98.0) L 09/16/18 07:05 Sodium 157 mmol/L (132-142) H 09/16/18 07:00 Plasma Sodium 157 mmol/L (130-142) H 09/16/18 07:00 Potassium 4.1 mmol/L (3.4-4.6) 09/16/18 07:00 Chloride 114 mmol/L (97-106) H 09/16/18 07:00 Carbon Dioxide 40.6 mmol/L (24-32.6) H 09/16/18 07:00 Anion Gap 6.5 mmol/L (6.8-13.8) L 09/16/18 07:00 BUN 32 mg/dL (3-23) H D 09/16/18 07:00 Creatinine 1.72 mg/dL (0.4-1.4) H D 09/16/18 07:00 Est GFR (Non-Af Amer) 30 mL/min (60-130) L D 09/16/18 07:00 BUN/Creatinine Ratio 18.6 (9.0-21.6) 09/16/18 07:00 Random Glucose 73 mg/dL (70-110) 09/16/18 07:00 Lactic Acid, Venous 0.7 mmol/L (0.4-2.0) 09/16/18 07:00 Calcium 9.0 mg/dL (7.9-10.9) 09/16/18 07:00 Calcium Adj for Albumin 10.6 mg/dL (8.4-10.2) H 09/16/18 07:00 Total Bilirubin 0.2 mg/dL (0.0-1.1) 09/16/18 07:00 AST 21 U/L (0-48) 09/16/18 07:00 ALT 4 U/L (19-67) L 09/16/18 07:00 Alkaline Phosphatase 115 U/L (50-170) 09/16/18 07:00 Troponin I 0.032 ng/mL (0.00-0.10) 09/16/18 07:00 C-Reactive Prot, Quant 8.3 mg/dL (0.0-0.9) H 09/16/18 07:00 B-Natriuretic Peptide 2291 pg/mL (5-550) H 09/16/18 07:00 Total Protein 7.7 gm/dL (6.2-8.2) 09/16/18 07:00 Albumin 1.6 gm/dl (3.4-5.0) L 09/16/18 07:00 Procalcitonin 0.17 ng/mL (0.05-0.50) 09/16/18 07:00 Assessment/Plan - Narrative Narrative: 1. IV antibiotics 2. RT therapy 3. Try to keep O2 sat slightly above 90% 4. BiPAP if needed 5. Discussed the probability of the patient not surviving this pneumonia and they express understanding. They mostly want her comfortable and not having pain and anxiety or nausea. - Assessment/Plan (1) Pneumonia Problem: Chronic Qualifiers: Pneumonia type: due to unspecified organism Laterality: left Lung location: lower lobe of lung Qualified Code(s): J18.1 - Lobar pneumonia, unspecified organism (2) Dementia Problem: Chronic Qualifiers: Dementia type: Parkinson's disease Dementia behavioral disturbance: without behavioral disturbance Qualified Code(s): G20 - Parkinson's disease; F02.80 - Dementia in other diseases classified elsewhere without behavioral disturbance (3) COPD exacerbation Problem: Acute
[2018-09-16] MEDS ORDERED: METOPROLOL TARTRATE 25 MG TABLET PO SCH (21:00)
[2018-09-16] MEDS ORDERED: risperiDONE 0.25 MG TABLET PO SCH (21:00)
[2018-09-16] MEDS ORDERED: MELATONIN 3,000 MCG TABLET PO SCH (21:00)
[2018-09-17 01:36] VITALS: BP 0/0
[2018-09-17] MEDS ORDERED: LEVOFLOXACIN IN DEXTROSE 5 % 750 MG/150 ML BAG IV SCH ×2 (07:00→08:30)
[2018-09-17] MEDS ORDERED: PROPYLENE GLYCOL ophthalmic (eye) SCH (09:00)
[2018-09-17] MEDS ORDERED: PEG ophthalmic (eye) SCH (09:00)
[2018-09-17] MEDS ORDERED: [UNRECOGNIZED DRUG - OTHER] ophthalmic (eye) SCH (09:00)
[2018-09-17] MEDS ORDERED: POLYETHYLENE GLYCOL 3350 119 GM BTL PO SCH (09:00)
[2018-09-17] MEDS ORDERED: POLYVINYL ALCOHOL 150 DROP BTL EACHEYE SCH (09:00)
--- NOTE | 2018-09-17 12:00 | DS ---
(1) Pneumonia Problem: Acute Qualifiers: Pneumonia type: due to unspecified organism Laterality: left Lung location: lower lobe of lung Qualified Code(s): J18.1 - Lobar pneumonia, unspecified organism (2) Dementia Problem: Chronic Qualifiers: Dementia type: Alzheimer's disease Alzheimer's disease onset: late-onset Dementia behavioral disturbance: without behavioral disturbance Qualified Code(s): G30.1 - Alzheimer's disease with late onset; F02.80 - Dementia in other diseases classified elsewhere without behavioral disturbance (3) COPD exacerbation Problem: Acute Description of Stay: Dionne Santacruz was a 77 yo white female resident of [facility]. She has a long-standing history of COPD and has had multiple bouts of pneumonia in the past. There've been discussions in the past about whether to go with hospice or not but because she would always require IV antibiotics get over her infection the hospice option was never chosen. She presented to the emergency room short of breath and hypoxic and laboring to breathe. Her chest x-ray revealed a left lower lobe pneumonia. Her diagnosis is acute lobar pneumonia with acute on chronic exacerbation of COPD she also has dementia. She was admitted to start on IV antibiotics using levofloxacin and respiratory therapy. Her oxygen levels further declined and to the upper 60 percentage range. Oxygen by mask was insufficient and so she was placed on BiPAP for a couple of hours. The family was summoned as it didn't appear that she would survive. She brought her oxygen levels up into the low 90s and at one point even 99% on the BiPAP. The family requested that the BiPAP. Removed after everybody had arrived and so he returned to a facemask. On 4 L of oxygen she was unable to raise her oxygen saturations above 70%. She did not appear to be restless or in pain or anxious. She was given a little dose of morphine 2 mg and atropine one drop and lorazepam 1 mg IV. This was repeated a few times over the hours. She subsequently last evening. And the body was released to the home of the family's choice. Procedures Performed: none Results and Findings: Pending Mircobiology Results 09/16/18 07:39 Blood Blood Culture - Preliminary NO GROWTH 24 HOURS 09/16/18 07:00 Blood Blood Culture - Preliminary NO GROWTH 24 HOURS Lab Pending Results 09/16/18 07:00: WBC 19.0 H, RBC 3.45 L, Hgb 10.3 L, Hct 35.2 L, MCV 102.0 H, MCH 29.9, MCHC 29.3 L, RDW 17.8 H, Plt Count 249, MPV 11.2, Immature Gran % (Auto) 0.60 H, Immature Gran # (Auto) 0.11 H, Neutrophils % 83.1 H, Lymphocytes % 9.5 L, Monocytes % 5.0, Eosinophils % 1.4, Basophils % 0.4, Nucleated RBC % 0.0, Neutrophils # 15.8 H, Lymphocytes # 1.80, Monocytes # 1.0, Eosinophils # 0.3, Absolute Basophils 0.1 09/16/18 07:00: Sodium 157 H, Plasma Sodium 157 H, Potassium 4.1, Chloride 114 H, Carbon Dioxide 40.6 H, Anion Gap 6.5 L, BUN 32 H D, Creatinine 1.72 H D, Est GFR (Non-Af Amer) 30 L D, BUN/Creatinine Ratio 18.6, Random Glucose 73, Calcium 9.0, Calcium Adj for Albumin 10.6 H, Total Bilirubin 0.2, AST 21, ALT 4 L, Alkaline Phosphatase 115, Troponin I 0.032, C-Reactive Prot, Quant 8.3 H, B- Natriuretic Peptide 2291 H, Total Protein 7.7, Albumin 1.6 L 09/16/18 07:00: Lactic Acid, Venous 0.7 09/16/18 07:00: Procalcitonin 0.17 09/16/18 07:00: PT 11.6 H, INR (Anticoag Therapy) 1.16 H, PTT (Le) 22.9 L 09/16/18 07:05: pCO2 79.6 H*, pO2 60.2 L, HCO3 40.6 H, Total CO2 43.1 H, Base Excess 11.9 H, ABG pH 7.33 L, ABG O2 Sat (Measured) 87.8 L Discharge Location: Other - home Disposition: Condition: Referrals: Ja Dias DO [Primary Care Provider] - Additional Patient Instructions (free text): -Please make TCM appointment unless skilled nursing discharge. Thank you! Nickie @ [phone].
--- NOTE | 2018-09-17 12:11 | DS ---
Discharge Summary - Provider Primary Care Provider: Ja Dias Admitting Clinician: Ja Dias Attending Physician on Admission: Ja Dias Pronouncing Clinician: Eva Mckeon RN - Date and Time Date of : 09/16/18 Time of : 21:22 - Diagnosis/Cause of (1) Pneumonia Problems: Acute (2) COPD exacerbation Problems: Acute (3) Dementia Problems: Chronic - Summary Details (narrative): Mrs. Santacruz was a 77-year-old with advanced COPD. She developed pneumonia in the left lower lung and was admitted to the hospital for IV antibiotic and respiratory therapy treatments. She's had multiple admissions in the past for similar events. However this time she was unable to compensate and keep her oxygen saturations elevated without the use of BiPAP. She had an advanced directive that was honored and the family was summoned. Once the family was here and they requested that the BiPAP removed. She continued to decline and subsequently at 2122 on 09/16/2018. Procedures Performed: none - Additional Data Confirmation of as documented by pronouncing clinician: no pulse, no respirations, no heart sounds, pupils fixed and dilated Family: at bedside Practitioner(Attending/PCP) notified: Yes Attending physician: Ja Dias Was code activated: No Autopsy requested: No Costume Mistress notified: No Organ Bank notified: Yes Advance Directives: Yes Hospice patient: No
== END 2018-09-16 22:45 | disposition expired | DRG 190 ==
LOC: ER 06:42 → MS 08:10
PROVIDERS: ADMIT Family Medicine; ATTEND Family Medicine
DX: F02.80 Dementia in other diseases classified elsewhere, unspecified severity, without behavioral disturbance, psychotic disturbance, mood disturbance, and anxiety; R09.02 Hypoxemia; J44.0 Chronic obstructive pulmonary disease with (acute) lower respiratory infection; I50.9 Heart failure, unspecified; E78.5 Hyperlipidemia, unspecified; Z87.891 Personal history of nicotine dependence; Z88.2 Allergy status to sulfonamides; Z79.82 Long term (current) use of aspirin; Z88.8 Allergy status to other drugs, medicaments and biological substances; Z91.040 Latex allergy status; J44.1 Chronic obstructive pulmonary disease with (acute) exacerbation; Z66 Do not resuscitate; I25.5 Ischemic cardiomyopathy; Z91.048 Other nonmedicinal substance allergy status; E87.0 Hyperosmolality and hypernatremia; D64.9 Anemia, unspecified; E11.9 Type 2 diabetes mellitus without complications; I48.0 Paroxysmal atrial fibrillation; Z88.0 Allergy status to penicillin; Z79.51 Long term (current) use of inhaled steroids; Z87.01 Personal history of pneumonia (recurrent); I25.10 Atherosclerotic heart disease of native coronary artery without angina pectoris; J18.1 Lobar pneumonia, unspecified organism; Z88.1 Allergy status to other antibiotic agents; K29.50 Unspecified chronic gastritis without bleeding; Z86.73 Personal history of transient ischemic attack (TIA), and cerebral infarction without residual deficits; R13.10 Dysphagia, unspecified; G20 Parkinson's disease; L97.329 Non-pressure chronic ulcer of left ankle with unspecified severity; I11.0 Hypertensive heart disease with heart failure; I25.2 Old myocardial infarction
CPT/HCPCS: 36415; 36600; 71010; 71045; 80053; 82803; 83519; 83605; 83880; 84145; 84484; 85025; 85610; 85730; 86140; 87040; 87081; 93005; 94640; 94660; 94664